=== PATIENT | female | born 1945 | race Caucasian/White ===

== ENCOUNTER 2022-05-13 16:16 | Outpatient (CLI) | payer MEDICARE, BC, SELFPAY ==
--- OUTSIDE RECORDS SUMMARY | 2022-05-13 08:32 | XMS_ITS | Clinical Summary ---
:1945 Author Organization [facility] Address [address] [place] [address] Care Team Providers Name Role Phone Unavailable Primary Care Provider Unavailable Source Comments You are receiving this document as you are listed as the primary care provider,follow-up provider, or the patient has been referred to you for consultation.This is in compliance with the Medicare and Medicaid EHR Incentive Program,which states Providers who transition their patient to another setting of careor provider of care or refers their patient to another provider of care shouldprovide summarycare record for each transition of care or referral. [facility] Allergies No known active allergies Medications Medication Sig Dispensed Refills Start Date End Date Status ATENOLOL OR 0 Active SIMVASTATIN OR 0 Activ e LEVOTHYROXINE SODIUM OR 0 Active aspirin 81 MG chewable Take 81 mg by 0 Active tablet mouth daily. Active Problems No known active problems Social History Tobacco Use Types Packs/Day Years Used Date Smoking Tobacco: Never Smokeless Tobacco: Never Sex Assigned at Date Recorded Not on file Plan of Treatment Health Maintenance Due Date Last Done Comments Colon Cancer Screening Plan 1945 Due Hep C Screening (Preventive 1945 Services) Medicare Annual Wellness 1945 Visit Mammogram 1945 COVID-19 Vaccine (#1) 05/30/1946 Cholesterol 11/27/1992 Dexa 11/27/2012 Zoster/Shingles (2 of 3) 11/16/2015 09/21/2015 Influenza (#1) 2022 05/29/2020, 05/31/2019, 06/28/2018, Additional history exists DTaP/Tdap/Td (3 - Tdap) 06/23/2030 06/23/2020, 06/20/2008, 02/27/1997 HepA Aged Out 06/22/2009, 08/05/2002 No longer eligible based on patient 's age to complete this topic Pneumococcal 65+ Yrs Completed 08/04/2017, 07/30/2016 HepB Aged Out No longer eligib le based on patient 's age to complete this topic Hib Aged Out No longer eligib le based on patient 's age to complete this topic IPV (Polio) Aged Out No longer eligib le based on patient 's age to complete this topic MCV4 Aged Out No longer eligib le based on patient 's age to complete this topic Insurance Payer Benefit Plan / Subscriber ID Effective Dates Phone Addre ss Type Group MEDICARE MEDICARE [id number] 2012-[employer] [phone] M edicare MANAGED CARE t 67 BCBS BCBS BCBS [employer] [id number] 2016-[employer] [phone] [address] [address] Medicare BLUE [address] [place] [address]
--- OUTSIDE RECORDS SUMMARY | 2022-05-13 08:32 | XMS_ITS | Clinical Summary ---
:1945 Author Organization [facility] [place] [address] Care Team Providers Name Role Phone LanierMahamed Yuli Unavailable Malia Doll DC Unavailable Pcp, No Primary Care Provider Unavailable Allergies Active Allergy Reactions Severity Noted Date Comments Hydrochlorothiazide Hyponatremia High 03/07/2021 Sertraline Hyponatremia 03/07/2021 Medications Medication Sig Dispensed Refills Start Date End Date Status atenoloL (TENORMIN) 50 Daily 0 03/06/2021 Active mg tablet levETIRAcetam (KEPPRA) 0 02/18/2021 Active 500 mg tablet levothyroxine Daily 0 12/05/2020 Activ e (SYNTHROID) 88 mcg tablet LORazepam (ATIVAN) 0.5 Three Times A 0 10/11/2020 Active mg tab Day as needed cholecalciferol (VITAMIN Daily 0 11/16/2020 Active D3) 1,000 unit capsule amLODIPine (NORVASC) 2.5 Daily 0 02/14/2021 Active mg tablet simvastatin (ZOCOR) 20 Bedtime 0 11/16/2020 Active mg tablet aspirin chewable 81 mg Chew 81 mg by 0 Active chewable tablet mouth. Active Problems Problem Noted Date PAC (premature atrial contraction) 06/06/2015 Overview: 11/2014 Screen for colon cancer 08/05/2011 Overview: Colonoscopy 07/2011 normal repeat in 10 years HTN (hypertension) 06/27/2010 Unspecified hypothyroidism 07/30/2008 Panic disorder without agoraphobia 12/21/2007 Goiter, unspecified 06/15/2007 Overview: Benign adenomatous 1994 Esophageal reflux 06/15/2007 Other and unspecified hyperlipidemia 06/15/2007 Encounters Date Type Specialty Care Team Description 02/12/2022 Lab Requisition Unknown, Doctor from Last 3 Months Immunizations Name Administration Dates Next Due AMB Influenza, IIV3 (Age >=3 years)(Flu 06/24/2013, 06/28/20 12, 06/30/2011 Clinic Only) Amb Influenza, Inact (High-dose) (Flu 06/20/2016 Clinic Only) Hepatitis A (Adult) 06/22/2009, 08/05/2002 Influenza Virus, Unspecified 06/28/2018, 06/17/2017 Influenza, High-dose Inactivated 06/06/2015, 05/30/2014 Influenza, IIV3 (Age >=3 years) 06/11/2010, 06/22/2009, 06/01 Pneumococcal Poly,23-Valent (Pneumovax) 08/04/2017 Pneumococcal conj 13-Valent (Prevnar 13) 07/30/2016 Td (Age >=7 Years) 02/27/1997 Tdap 06/20/2008 Zoster (Zostavax-ZVL, live) 09/21/2015 Family History Medical History Relation Name Comments Cancer Brother 2 leukemia Heart Disease Father PR, 81yr Hyperlipidemia Father Hypertension Father Heart Disease Mother atrial fib Hyperlipidemia Mother Hypertension Mother Cancer-breast Sister age 53 yr Relation Name Status Comments Brother 1 Brother 2 Father Mother Sister Alive Social History Tobacco Use Types Packs/Day Years Used Date Never Smoker Smokeless Tobacco: Never Used Tobacco Cessation: Counseling Given: Yes Alcohol Use Standard Drinks/Week Comments Yes 0 (1 standard drink = 0.6 oz pure alcoho l) occ glass of wine Sex Assigned at Date Recorded Not on file Obstetrics History Para Term AB IAB SAB Ectopic Multiple Living Live Births 2 2 Date Outcome GA Total Labor/2nd/3rd Weight Sex Delivery Anes PTL Sana A 1 A5 Name Clin Labor Last Filed Vital Signs Vital Sign Reading Time Taken Comments Blood Pressure 138/81 03/27/2021 1:31 PM CDT Pulse 73 03/27/2021 1:31 PM CDT Temperature 36.3 ??C (97.4 ??F) 07/14/2018 9:25 AM [facility] Respiratory Rate - - Oxygen Saturation 98% 03/27/2021 1:31 PM CDT Inhaled Oxygen Concentration - - Weight 79.6 kg (175 lb 6.4 oz) 03/27/2021 1:31 PM CDT Height 159.9 cm (5' 2.95) 07/14/2018 9:25 AM [facility] Body Mass Index 31.12 07/14/2018 9:25 AM [facility] Plan of Treatment Health Maintenance Due Date Last Done Comments Hepatitis C screening for age 0311/27/1963 18-79 Zoster (shingles) series for age 0311/16/2015 09/21/2015 50+ (2 of 3) Tetanus booster 06/20/2018 06/20/2008, 02/27/1997 Mammogram for age 45-75 08/04/2018 08/04/2017, 07/30/2016, 07/25/2015, Additional history exists Medicare Wellness for age 65+ 08/04/2018 08/04/2017, 2015, 07/25/2015, Additional history exists BMI (ht and wt on same day) for 07/14/2019 07/14/2018, 12/2016, age 18+ 06/05/2017, Additional history exists Depression screening for age 12+ 07/14/2019 07/14/2018, 12/2016, 08/04/2017, Additional history exists COVID-19 vaccine series (3 - 04/18/2021 11/16/2020, 021 Booster for Moderna series) Colonoscopy through age 75 08/05/2021 08/05/2011, 1 Influenza for age 65+ 05/01/2022 06/28/2018, 06/17/2017, 06/20/2016, Additional history exists Lipids for age 45-75 08/04/2022 08/04/2017, 06/20/2016, 07/23/2015, Additional history exists Tdap Completed 06/20/2008 DEXA/DXA scan for age 65+ Completed 07/31/2016 Pneumococcal series for age 65+ Completed 08/04/2017, 07/03 Procedures Procedure Name Priority Date/Time Associated Comments Diagnosis LEVETIRACETAM (KEPPRA) Routine 02/11/2022 2:34 PM Results for this CDT procedure are i n the results section. from Last 3 Months Results LEVETIRACETAM (KEPPRA) (02/11/2022 2:34 PM CDT) [facility] Method Time Signature LEVETIRACETAM 26.1 6.0 - 46.0 02/12/2022 [facility] (KEPPRA) ug/mL 3:13 PM CDT LAB[facility] Specimen Anatomical Collection Method Collection Time Receive d Time (Source) Location / / Volume Laterality Blood BLOOD SPECIMEN / Client Collect / 02/11/2022 2:34 PM 0 02/12/2022 2:38 Unknown Unknown CDT PM CDT Narrative [facility] - 02/12/2022 3:13 PM CDT Reference Range is based on Trough Steady State in patients receiving recommended daily dose. ??The relationship between serum concentrations and toxicity is not known. Bivaracetam (Briviact??) interferes with measurements of levetiracetam (Keppra??) in the [facility] Levetiracetam Assay Doctor Unknown SEND OUTS Performing Organization Address City/State/ZIP Code Phon e Number [facility] [address] [place] [address] LABORATORY-CENTRAL 2000 LABORATORY from Last 3 Months Insurance Payer Benefit Plan / Subscriber ID Effective Dates Phone Addre ss Type Group MEDICARE PART B MEDICARE PART B [id number] 2009-Prese ATTN: CLAIMS - HB USE ONLY HB ONLY nt [address] [place] [address] [place] [id number] 2014[place] [address] [place], [place] [id number] [place] [id number] 2017-Prese [address] [address] [place], [place] [id number] Care Teams Supplies Packer Relationship Specialty Start Date End Date Pcp, Cristine PCP - General 08/06/18 . Mahamed Lanier Search Engine Optimization Specialist 07/20/13 [address] [place] [address] Malia Doll DC Chiropractor 08/04/17 [address] [place] [address]
--- OUTSIDE RECORDS SUMMARY | 2022-05-13 08:32 | XMS_ITS | Encounter Summary ---
:1945 Author Organization [email or web address] Address [address] [place] [address] Care Team Providers Name Role Phone Unavailable Primary Care Provider Unavailable Reason for Visit Reason Comments Appt. Needed Encounter Details Date Type Department Care Team Description 03/29/2020 Telephone [facility] 3800 Nurse, [id number] End Appt. Needed Endocrinology [address] [place] [id number] Social History Tobacco Use Types Packs/Day Years Used Date Smoking Tobacco: Never Smokeless Tobacco: Never Sex Assigned at Date Recorded Not on file documented as of this encounter Nursing Notes Yolande Wyatt - 03/29/2020 3:11 PM CDT Faxed referral rec'd from [place] for Osteopenia Faxed referral in mailroom drawer 04/17 received current labs and put in drawer with referral documented in this encounter Plan of Treatment Not on filedocumented as of this encounter Visit Diagnoses Not on filedocumented in this encounter
--- OUTSIDE RECORDS SUMMARY | 2022-05-13 08:32 | XMS_ITS | Encounter Summary ---
:1945 Author Organization [facility] Address [address] [place] [address] Care Team Providers Name Role Phone Unavailable Primary Care Provider Unavailable Reason for Visit Reason Comments Consult, New Patient Encounter Details Date Type Department Care Team Description 04/27/2020 Phone Visit [facility] 3800 Nicole He othyroidism, unspecified type (Primary Dx); Endocrinology Lio Bowen MD Low bone density [facility] [address] [facility] [place] [address] [phone] (Wo rk) Social History Tobacco Use Types Packs/Day Years Used Date Smoking Tobacco: Never Smokeless Tobacco: Never Sex Assigned at Date Recorded Not on file documented as of this encounter Progress Notes Nicoel He MD - 04/27/2020 10:00 AM CDT Endocrine Note: Date: 04/27/2020 Phone Visit Time spent with patient: 33 minutes Reason for consultation: Low bone density Assessment: Shiela Villafana is a 74 y.o. female who is here for evaluation 1. Low bone density 2. Hypothyroidism, post surgical 2003: Surgery done for goiter. 3. Hyperprolactinemia, prolactin 41 on recent labs (upper limit of normal 26 ng /ml) Low bone density: FRAX: Major fracture risk 11% and hip fracture risk 2.3% I did not get data on the latest bone density Risk Factors: Age and Menopause. Fragility fractures: None Plan: Initial labs for bone eval was sent. Continue Vit D 1000 IU daily Continue 3 serving of Ca rich food per day. Aerobic exercises Hypothyroidism : Continue LT4 88 mcg daily Obtain TSH and FT4 levels. Hyperprolactinemia. Check PRL and FSH, macroprolactin levels. Nicole He MD Endocrinology Service HPI: Shiela Villafana is a 74 y.o. female who presents for evaluation of Low bone density. She was not aware of the diagnosis before. However in 2016 she had a DEXA scan that showed low bone density. I do not have access to these reports. Her primary care physician at that time recommended taking adequate calcium and vitamin-D along with regular aerobic exercise. Recently, she had history of severe hyponatremia and seizures. She is currently on a fluid restriction and has been taking Keppra for seizures. She is weak and just started ambulation. She had follow-up exam during which DEXA test was repeated as a part routine follow-up testing and was found to have low bone density. This is therefore here today for further evaluation and treatment. Symptoms: Detail Age // BMI // Race Increased fall risk yes: feels weak and moving slowly, has had seizure. Prior Fracture / ht loss No, Many years, slipped and fell. Parental hip fracture no Secondary causes no Steroid use no Smoking no Hypogonadism yes: hysterectomy, endometriosis @43, HRT for few years after that. Rheumatoid arthritis no Alcohol > 3 drinks a day no Femoral BMD no Sedentary life style yes: Walking more. Ca supplement Milk, yogurt daily. 2 serving at least Vit D supplement 1000 IU daily Risk Present ? FH of hyper para / MEN / hyper calcemia. no Sarcoid ? no Prolonged immobilization no Thiazide no Vit A no Thyroid disease / meds yes: LT4 88 mcg daily. Other ROS: Complete ROS that were obtained were negative. Detail Autoimmune disease no Calcium disorders no PSH Fracture ? no Family history of thyroid / AI disease no FH of bone disorder yes: Mother had arthritis, sister with fracture. Family history of osteoporosis no PMH: No past medical history on file. HYL on Simvastatin BP Atenolol Hyponatremia - fluid restriction. Seizure -- on Keppra. (related to hyponatremia) Osteoarthritis Anxiety Recent diagnosis of SIADH, hyponatremia and seizures Prolactin levels were also elevated but the reason for testings were not clear PSH: No past surgical history on file. Hysterectomy and bilateral salpingo-oophorectomy in 1988 Total thyroidectomy in 2003 FH: History reviewed. No pertinent family history. SH: Social History Tobacco Use ??? Smoking status: Never Smoker ??? Smokeless tobacco: Never Used Substance Use Topics ??? Alcohol use: Not on file ??? Drug use: Not on file ALL: No Known Allergies MED: aspirin ATENOLOL OR LEVOTHYROXINE SODIUM OR SIMVASTATIN OR Current Outpatient Medications Medication Sig ??? aspirin 81 MG chewable tablet Take 81 mg by mouth daily. ??? ATENOLOL OR ??? LEVOTHYROXINE SODIUM OR ??? SIMVASTATIN OR Exam: There were no vitals taken for this visit. Pleasant and cooperative. Normal Speech. Alert and oriented Last Basic Metabolic Panel: I have request faxing reports from [facility] Mar 24, 2020 TSH is 4.29, upper limit normal 4.20 Prolactin 41.2, upper limit of normal 26 Free T4 levels 1.93, upper limit of normal 1.8 Normal liver enzymes Potassium 2.9, normal kidney functions, creatinine 0.6 Random blood glucose was 158, repeat blood glucose 94 Repeat potassium was 4.3 documented in this encounter Plan of Treatment Not on filedocumented as of this encounter Visit Diagnoses Diagnosis Hypothyroidism, unspecified type - Prima ry Low bone density documented in this encounter
--- OUTSIDE RECORDS SUMMARY | 2022-05-13 08:32 | XMS_ITS | Encounter Summary ---
:1945 Author Organization [email or web address] Address [address] [place] [address] Care Team Providers Name Role Phone Unavailable Primary Care Provider Unavailable Reason for Referral (Routine) - Closed Specialty Diagnoses / Procedures Referred By Contact Refer red To Contact Diagnoses AK (actinic keratosis) Lisseth Henderson PA-C Procedures [place] DESTRUC BENIGN/PREMAL,2-14 LESIONS [facility] [address] [address] Referral ID Status Reason Start Date Expiration Date Visits Requ ested Visits Authorized [id number] Closed 03/28/2019 06/26/2020 1 1 Reason for Visit Reason Comments SKIN LESION Face Encounter Details Date Type Department Care Team Description 03/28/2019 Office Visit [facility] Lisseth Henderson AK (actinic keratosis) (Prim altagracia Dx); [address] [facility] CECILIA Bowden Seborrheic keratoses, [place] [id number] [place] [id number] Social History Tobacco Use Types Packs/Day Years Used Date Smoking Tobacco: Never Smokeless Tobacco: Never Sex Assigned at Date Recorded Not on file documented as of this encounter Progress Notes Lisseth Henderson - 03/28/2019 11:15 AM CDT Problem List None Chief Complaint Patient presents with ??? SKIN LESION Face History of Present Illness: Shiela Villafana is a 73 y.o. female who presents to clinic today for follow up of AK's and irritatedSK's along the face. She was recently seen 03/21/19 for skin exam and deferred treatment of these skin lesions along the face due to sister's wedding last week. She presents today requesting LN2 to these lesions. Reports that AK's along the left dorsal hand are healing well, she is very pleased. Past Medical History: AK's treated with LN2 in past. Negative for skin cancer. Family History: Daughter with history of NMSC. Social History: Shiela wears spf regularly, does not like wearing hats. Is outside with her grandsons quite a bit. Sister recently . Medications: The patient has a current medication list which includes the following prescription(s): aspirin, atenolol, levothyroxine sodium, and simvastatin. Allergies: The patient has No Known Allergies. Review of Systems: Patient is otherwise feeling well, denies any painful or bleeding skin lesions. Physical Examination: General: Well-appearing female, in no distress, alert and oriented, ambulates without difficulty. Skin: Exam is localized to the face, left dorsal hand today. Pertinent findings: - There are 7 gritty, scaly, ill defined, pink, rough macules and thin papules on the right central cheek, proximal dorsum of the nose, left and right superior forehead, left mid cheek - There are scattered brown to sahu, hyperkeratotic, stuck-on, warty papules on the face including 4irritated lesions along the right lateral cheek, right mosque and left mid cheek. - Left dorsal hand shows to erythematous crusted macules consistent with healing LN2 sites, 1 week s/p LN2. No signs of infection evident. Exam otherwise was normal. Assessment and Plan: 1. AK's x 7 along the face: The lesions were treated with LN2 after verbal consent was obtained. Risk of pigmentary changes discussed. Wound care instructions were provided in both verbal and written forms. 2. Irritated SK's x 4, face: The lesions were treated with LN2 after verbal consent was obtained. Risk of pigmentary changes discussed. Wound care instructions were provided in both verbal and written forms. 3. AK's dorsal hands, 1 week s/p LN2, appear to be healing well. Follow up: Return to clinic in 1 year for FBE, recheck of face due to history of AK's, sooner for new concerns. documented in this encounter Plan of Treatment Not on filedocumented as of this encounter Visit Diagnoses Diagnosis AK (actinic keratosis) - Primary Actinic keratosis Seborrheic keratoses, inflamed documented in this encounter
--- OUTSIDE RECORDS SUMMARY | 2022-05-13 08:33 | XMS_ITS | Encounter Summary ---
:1945 Author Organization [email or web address] Address [address] [place] [address] Care Team Providers Name Role Phone Unavailable Primary Care Provider Unavailable Reason for Referral (Routine) - Closed Specialty Diagnoses / Procedures Referred By Contact Refer red To Contact Diagnoses AK (actinic keratosis) Lisseth Henderson PA-C Procedures SD DESTRUC BENIGN/PREMAL,2-14 LESIONS [facility] [address] [place] [address] Referral ID Status Reason Start Date Expiration Date Visits Requ ested Visits Authorized [id number] Closed 03/21/2019 06/19/2020 1 1 Reason for Visit Reason Comments Skin Exam Encounter Details Date Type Department Care Team Description 03/21/2019 Initial Consult Ben Jacobs o (Primary Dx); Dermatology Lisseth Bowden PA-C Melanocytic nevus, unspecified location; [address] [facility] SK (seborrheic keratosis); [place], [place] [id number] [place] [address] Seborrheic keratoses, inflamed; [phone] [place], [place] Ruff angioma ; [address] Diffuse photodamage of skin; [phone] AK (actinic ker atosis) (Work) Social History Tobacco Use Types Packs/Day Years Used Date Smoking Tobacco: Never Assessed Sex Assigned at Date Recorded Not on file documented as of this encounter Patient Instructions Patient InstructionsYolande Oropeza LPN - 03/21/2019 11:45 AM CDT Consider wearing a hat while out in the sun. Sunscreen of 30 SPF with zinc oxide examples Blue lizard, [place], Hydrating Cerva Ve invisible zinc. Liquid Nitrogen Treatment (Cryotherapy) How it Works: Liquid nitrogen (Cryotherapy) is a cold liquified gas, with a temperature of -321?? F.It's used to freeze and destroy superficial skin growths. Treatment Goals: Treatment with liquid nitrogen may cause the treated area to appear red or swollen anywhere from a few hours to a couple of days. Usually a scab/crust forms, which will fall off by itself in 1 to 3 weeks. The skin growth will fall off with the scab, leaving healthy new skin. 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 You May Experience: Liquid nitrogen causes stinging and mild pain while the growth is being frozen and then thaws. The worst discomfort occurs during the first five to 10 minutes of the procedure, but can sometimes last significantly longer. A blister, sometimes a blood blister, may form. If this occurs, you may pop the blister with a cleanneedle, but leave the roof of the blister intact on the skin. If this does happen, keep the area covered with a Band-Aid and use Vaseline or antibiotic ointment. Areas that are prone to blistering are the eyelids and hands. The blisters and swelling are part of the treatment and will gradually heal. No special care is needed, you can wash as usual and use makeup or other cosmetics. You also may experience some redness, swelling, tenderness, weeping, or crusts/scabs. Try not to pick at, itch, or scrub the area. If the treated sore area feels sore or irritated, you can keep it covered. Avoid excessive sun exposure since this can result in persistent darkening at the treated sites. PLEASE NOTE: Sometimes, growths have to be re-frozen. If your growth is not cured by liquid nitrogen, please make a return appt. Uncommon: Call the nurse's line below if you have any white, green, or yellow fluid damage or any sign of an apparent infection. Nurse Line: documented in this encounter Progress Notes Lisseth Henderson 03/21/2019 11:45 AM CDT Problem List None Chief Complaint Patient presents with ??? Skin Exam History of Present Illness: Shiela Villafana is a 73 y.o. female who presents to clinic today for full body skin cancer screening exam. New patient to [facility]. Previously seen at [facility] dermatology practicein [place] and review of notes shows history of AK's. Today, Shiela reports the following concerns: -few moles along face that she would like removed, admits that they are becoming more prominent, easily traumatized and would like to discuss removal although due to her sister's wedding this weekend she prefers to consider removal at later date Past Medical History: AK's. Negative for skin cancer. Family History: Daughter with history of NMSC. Social History: Shiela wears spf regularly, does not like wearing hats. Is outside with her grandsons quite a bit. Medications: The patient has a current medication list which includes the following prescription(s): aspirin, atenolol, levothyroxine sodium, and simvastatin. Allergies: The patient has No Known Allergies. Review of Systems: Patient is otherwise feeling well, denies any painful or bleeding skin lesions. Physical Examination: General: Well-appearing female, in no distress, alert and oriented, ambulates without difficulty. Skin: The entire scalp, face, neck, anterior and posterior torso, upper and lower extremities including hands, feet, and nails, buttocks were examined today. Pertinent findings: - There are gritty, scaly, ill defined, pink, rough macules and thin papules on the right central cheek, dorsum of the nose, left lateral superior forehead, left dorsal hand - There are uniformly, pigmented, scattered, page macules in the sun distributed areas - There are scattered brown to sahu, hyperkeratotic, stuck-on, warty papules on the right lateral cheek, temples, forehead, left zygomatic cheek, shoulders, trunk and extremities. - There are uniformly pigmented, well demarcated, page to brown melanocytic macules and thin papules scattered throughout the trunk and extremities including a flesh-colored soft papule along the left chin consistent with intradermal nevus. - There are bright red, vascular, dome shaped, small papules on the trunk -there is flaking of the postauricular scalp bilaterally without thickened plaque or underlying erythema evident Exam otherwise was normal. Assessment and Plan: 1. AK's x 2 along the left dorsal hand: The lesions were treated with LN2 after verbal consent was obtained. Risk of pigmentary changes discussed. Wound care instructions were provided in both verbal and written forms. 2. Remainder of AK's along the face, will treat at next visit within 1-2 months due to sister's wedding this weekend and patient deferring LN2 to face today. 3. Irritated SK's, face: will treat at next visit within 1-2 months due to sister's wedding this weekend and patient deferring LN2 to face today. 4. Solar Lentigines, Seborrheic Keratoses, Clinically benign appearing melanocytic nevi and Ruff Angiomas - benign, no treatment indicated, patient reassured 5. Mild natividad derm, postauricular scalp: -not bothersome to patient, continue to observe. 6. Diffuse photodamage of skin: -Encouraged sun protective clothing, broad-brimmed hats, zinc oxide based spf 30. -ABCDE's of melanoma discussed and handouts on skin cancers provided. Follow up: Return to clinic within 1-[address]2 to AK's along the nose, left forehead, right cheek and SK's along the face that are irritated, sooner for new concerns. 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
[2022-05-13 10:12] LABS: Albumin* 4.4 g/dL (3.3-5.0); Chloride* 95 mmol/L (96-114); Sodium* 132 mmol/L (135-149)
[2022-05-13 10:13] LABS: Potassium* 4.2 mmol/L (3.6-5.1)
[2022-05-13 10:15] LABS: Alkaline Phosphatase* 94 U/L (40-150); Aspartate Amino Transferase* 26 U/L (12-35); Bilirubin Total* 0.8 mg/dL (0.1-1.5); Blood Urea Nitrogen* 13 mg/dL (7-30); Carbon Dioxide* 29 mmol/L (20-32); Creatinine* 0.6 mg/dL (0.5-1.5); Estimated Glomerular Filt Rate 94 ml/min; Total Protein* 7.3 g/dL (6.0-8.3)
[2022-05-13 10:16] LABS: Alanine Aminotransferase* 24 U/L (4-35); Glucose* 101 mg/dL (60-115)
[2022-05-13 10:27] LABS: Vitamin D 25 Hydroxy* 54 ng/mL (30-80)
[2022-05-13 11:14] LABS: Free T4 Free Thyroxine* 1.65 ng/dL (0.70-1.85)
== END 2022-05-13 16:17 | disposition home or self-care (01) ==
PROVIDERS: PCP Family Medicine; Visit Provider Family Medicine
DX: E55.9 Vitamin D deficiency, unspecified (principal); I10 Essential (primary) hypertension; E78.5 Hyperlipidemia, unspecified
CPT/HCPCS: 80053; 82306; 84439; 84443

== ENCOUNTER 2022-09-12 15:31 | Outpatient (CLI) | payer MEDICARE, BC, SELFPAY ==
[2022-09-12 10:28] LABS: Albumin* 4.1 g/dL (3.3-5.0); Chloride* 99 mmol/L (96-114)
[2022-09-12 10:29] LABS: Sodium* 132 mmol/L (135-149)
[2022-09-12 10:31] LABS: Aspartate Amino Transferase* 26 U/L (12-35); Bilirubin Total* 0.6 mg/dL (0.1-1.5); Carbon Dioxide* 28 mmol/L (20-32); Cholesterol* 167 mg/dL (90-199); Creatinine* 0.5 mg/dL (0.5-1.5); Estimated Glomerular Filt Rate 98 ml/min; Total Protein* 6.9 g/dL (6.0-8.3)
[2022-09-12 10:32] LABS: Alanine Aminotransferase* 25 U/L (4-35); Alkaline Phosphatase* 91 U/L (40-150); Blood Urea Nitrogen* 11 mg/dL (7-30); Calcium* 8.9 mg/dL (8.4-10.6); Glucose* 101 mg/dL (60-115); HDL Cholesterol* 59 mg/dL (>=50); LDL Cholesterol Calculated 92 mg/dL (<100); Triglycerides* 81 mg/dL (40-149)
[2022-09-12 10:38] LABS: Vitamin D 25 Hydroxy* 35 ng/mL (30-80)
[2022-09-13 03:05] LABS: Free T4 Free Thyroxine* 1.47 ng/dL (0.70-1.85)
== END 2022-09-12 15:32 | disposition home or self-care (01) ==
PROVIDERS: PCP Family Medicine; Visit Provider Family Medicine
DX: I10 Essential (primary) hypertension (principal); M85.80 Other specified disorders of bone density and structure, unspecified site; E78.5 Hyperlipidemia, unspecified; E03.9 Hypothyroidism, unspecified
CPT/HCPCS: 80053; 80061; 82306; 84439; 84443

== ENCOUNTER 2022-11-21 13:42 | Outpatient (CLI) | payer MEDICARE, BC, SELFPAY ==
--- NOTE | 2022-11-21 14:00 | CRLHL7_ITS ---
For Patients: As a result of the Century Cures Act, medical imaging exams and procedure reports are released immediately into your electronic medical record. You may view this report before your referring provider. If you have questions, please contact your health care provider. BILATERAL SCREENING MAMMOGRAM WITH COMPUTER-AIDED DETECTION AND TOMOSYNTHESIS TECHNIQUE: CC and MLO views were obtained. These mammographic images have been obtained using full-field digital technique. These mammographic images were interpreted with the benefit of computer-aided detection. Breast Tomosynthesis was used in this interpretation. COMPARISON FILM: 05/29/21, 04/09/20, 09/28/18. FINDINGS: There are scattered areas of fibroglandular density IMPRESSION: There is no radiographic evidence for malignancy. ASSESSMENT: BI-RADS Category 1: Negative RECOMMENDATION: Routine screening mammogram in 1 year. A lay language report of this examination will be provided to the patient. Rosa M Garrett M.D. Diagnostic/Breast Radiologist [email or web address] CARLOS EDUARDO/Dictated by: Rosa M Garrett MD @ 11/24/2022 8:26:00 AM (Electronically Signed)
== END 2022-11-21 13:43 | disposition home or self-care (01) ==
LOC: MAMMO 13:44
PROVIDERS: PCP Family Medicine; Visit Provider Family Medicine
DX: Z12.31 Encounter for screening mammogram for malignant neoplasm of breast (principal)
CPT/HCPCS: 77063; 77067

== ENCOUNTER 2022-12-15 08:32 | Outpatient (CLI) | payer MEDICARE, BC, SELFPAY | END 2022-12-15 08:33 | disposition home or self-care (01) | LOC: NFLDREF 15:14 | PROVIDERS: PCP Family Medicine; Referring Provider Family Medicine; Visit Provider Family Medicine | DX: E22.1 Hyperprolactinemia (principal); F33.42 Major depressive disorder, recurrent, in full remission; E22.2 Syndrome of inappropriate secretion of antidiuretic hormone; E89.0 Postprocedural hypothyroidism | CPT/HCPCS: 80048; 84146; 84439; 84443; 84480 ==

== ENCOUNTER 2023-02-18 09:29 | Outpatient (REF) | payer MEDICARE, BC, SELFPAY ==
[2023-02-18 10:15] LABS: Basophils Absolute Auto 0.03 K/uL (0.00-0.30); Basophils Percent Auto 0.4 % (0.0-3.0); Hematocrit 41.9 % (33.0-51.0); Hemoglobin* 14.1 gm/dL (12.0-16.0); Immature Granulocytes Abs Auto 0.01 K/uL (0.00-0.30); Immature Granulocytes Pct Auto 0.1 %; Lymphocytes Absolute Auto 2.38 K/uL (0.90-2.90); Lymphocytes Percent Auto 31.6 % (20-44); Mean Corpuscular HGB Conc 34 gm/dL (32-36); Mean Corpuscular Hemoglobin 28 pg (26-34); Mean Corpuscular Volume 84 fL (80-100); Monocytes Percent Auto 7.8 % (0.0-11.0); Neutrophils Absolute Auto 4.21 K/uL (1.7-7.0); Neutrophils Percent Auto 56.1 % (42.0-72.0); Platelet Count* 238 K/uL (140-440); RDW Coefficient of Variation % 12.4 % (11.5-15.5); Red Blood Count 4.98 m/uL (4.00-5.20); White Blood Count* 7.52 K/uL (4.50-11.00)
[2023-02-18 10:24] LABS: Slide Review Reflex No
[2023-02-19 18:53] LABS: Keppra (Levetiracetam) 24 ug/mL (10-40)
== END 2023-02-18 09:30 | disposition home or self-care (01) ==
LOC: NPINS 09:29
PROVIDERS: PCP Family Medicine; Visit Provider Psychiatry & Neurology Neurology
DX: R56.9 Unspecified convulsions (principal)
CPT/HCPCS: 80177; 85025

== ENCOUNTER 2023-05-11 08:42 | Outpatient (CLI) | payer MEDICARE, BC, SELFPAY | END 2023-05-11 08:43 | disposition home or self-care (01) | LOC: NFLDREF 21:55 | PROVIDERS: PCP Family Medicine; Referring Provider Family Medicine; Visit Provider Family Medicine | DX: I10 Essential (primary) hypertension (principal); E89.0 Postprocedural hypothyroidism | CPT/HCPCS: 80053; 84439; 84443 ==

== ENCOUNTER 2023-08-05 15:11 | Outpatient (CLI) | payer MEDICARE, BC, SELFPAY | END 2023-08-05 15:12 | disposition home or self-care (01) | LOC: AMB 08-06 09:48 | PROVIDERS: PCP Family Medicine; Visit Provider Family Medicine | DX: R56.9 Unspecified convulsions (principal) | CPT/HCPCS: A0425; A0427 ==

== ENCOUNTER 2023-08-05 15:39 | Emergency (ER) | payer MEDICARE, BC, SELFPAY ==
[2023-08-05] VITALS (17 sets, daily range): BP systolic 153–177; BP diastolic 71–79; PULSE 70–81; RESP 16; TEMP 36.9; O2SAT 92–100; BMI 29.1
--- NOTE | 2023-08-05 16:21 | ED.SEIZURE ---
HPI - Seizure General Chief Complaint: Seizure Stated Complaint: seizure Time Seen by Provider: 08/05/23 15:49 History of Present Illness HPI Narrative: This patient comes in for evaluation of a seizure that occurred prior to arrival. The report is that her came home and saw her in an active seizure. There is a report that this went on for about 5 minutes. Patient has a history of seizures and is taking Keppra. She was postictal upon arrival but at the time of my visit she is conversational. She does have a very dry mouth. She does not report any injury. She states that she has been taking her Keppra as prescribed but also is taking Ativan and has been cutting back on this medicine. She states that she is currently taking 1 and half tablets a day which amounts to 0.75 mg. Related Data Home Medications Medication Instructions Recorded Confirmed aspirin 81 mg tablet,delayed 81 mg PO QDAY 04/03/22 06/09/23 release (Adult Aspirin Regimen) levetiracetam 500 mg tablet 1,000 mg PO BID 05/15/22 06/09/23 (Keppra) Previous Rx's Medication Instructions Recorded cholecalciferol (vitamin D3) 25 2,000 unit PO QDAY #60 caps 07/31/22 mcg (1,000 unit) capsule amlodipine 2.5 mg tablet 2.5 mg PO QDAY #90 tabs 09/16/22 atenolol 50 mg tablet 50 mg PO QDAY #90 tabs 09/16/22 levothyroxine 75 mcg tablet 75 mcg PO QDAY #90 tabs 09/16/22 simvastatin 20 mg tablet 20 mg PO QPM #90 tabs 09/16/22 lorazepam 0.5 mg tablet 0.5 mg PO BID PRN anxiety #60 tabs 07/21/23 hydroxyzine HCl 25 mg tablet 25 mg PO QHS PRN #30 tabs 08/05/23 levetiracetam 500 mg tablet 500 mg PO BID #60 tabs 08/05/23 (Keppra) Allergies Allergy/AdvReac Type Severity Reaction Status Date / Time sertraline Allergy Unknown sodium drop Verified 06/09/23 13:32 hydrochlorothiazide AdvReac Severe hyponatremi Verified 06/09/23 13:32 a Review of Systems Status of ROS: Reports: 10 or more systems reviewed and unremarkable except as noted in History and below Narrative: Constitutional: No fevers, no weight gain or loss. Eyes: No discharge. No vision changes. HENT: No congestion, no sore throat, no ear pain. She reports a dry mouth. Cardiovascular: No chest pain, no palpitations. Respiratory: No shortness of breath, no wheezes, no cough. Gastrointestinal: No abdominal pain, no vomiting, no diarrhea. Genitourinary: No dysuria, no hematuria. Musculoskeletal: Normal range of motion. Skin: No rashes, no pruritis. Neurological: No dizziness, weakness, sensory change, speech change. Endo/Heme/Allergies: No bruising or bleeding. No polydipsia. Pysch: no suicidality, no anxiety, no insomnia. All other systems reviewed and are negative. [facility] Medical History (Updated 08/05/23 @ 18:02 by Kg Allen MD) Benzodiazepine dependence ?F13.20 - Sedative, hypnotic or anxiolytic dependence, uncomplicated (ICD-10) Rash of groin ?R21 - Rash and other nonspecific skin eruption (ICD-10) Increased prolactin level (~2019) ?R79.89 - Other specified abnormal findings of blood chemistry (ICD-10) Anxiety ?F41.9 - Anxiety disorder, unspecified (ICD-10) Phobia, unspecified ?F40.9 - Phobic anxiety disorder, unspecified (ICD-10) History of panic attacks ?Z86.59 - Personal history of other mental and behavioral disorders (ICD-10) Vulvar disorder ?N90.9 - Noninflammatory disorder of vulva and perineum, unspecified (ICD-10) Vitamin D deficiency ?E55.9 - Vitamin D deficiency, unspecified (ICD-10) 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) ?E22.2 - Syndrome of inappropriate secretion of antidiuretic hormone (ICD-10) Seizure disorder (2019) ?G40.909 - Epilepsy, unspecified, not intractable, without status epilepticus (ICD-10) Postoperative hypothyroidism (2003) ?E89.0 - Postprocedural hypothyroidism (ICD-10) Peripheral neuropathy (2019) ?G62.9 - Polyneuropathy, unspecified (ICD-10) Panic attack ?F41.0 - Panic disorder [episodic paroxysmal anxiety] (ICD-10) Palpitations ?R00.2 - Palpitations (ICD-10) Microscopic hematuria ?R31.29 - Other microscopic hematuria (ICD-10) Major depressive disorder ?F32.9 - Major depressive disorder, single episode, unspecified (ICD-10) Generalized anxiety disorder with panic attacks ?F41.1 - Generalized anxiety disorder (ICD-10) ?F41.0 - Panic disorder [episodic paroxysmal anxiety] (ICD-10) Dyslipidemia ?E78.5 - Hyperlipidemia, unspecified (ICD-10) Benign paroxysmal positional vertigo (~12/2020) ?H81.10 - Benign paroxysmal vertigo, unspecified ear (ICD-10) Acute anxiety ?F41.9 - Anxiety disorder, unspecified (ICD-10) Surgical History (Updated 09/15/22 @ 13:01 by Joanne Mcrae MD) History of total thyroidectomy (2003) ?E89.0 - Postprocedural hypothyroidism (ICD-10) History of hysterectomy with bilateral oophorectomy (1988) ?Z90.710 - Acquired absence of both cervix and uterus (ICD-10) ?Z90.722 - Acquired absence of ovaries, bilateral (ICD-10) Family History (Updated 09/15/22 @ 13:03 by Joanne Mcrae MD) Mother Atrial fibrillation, Onset Age: 70 Stroke, Onset Age: 76 CLL (chronic lymphocytic leukemia) Sister Breast cancer, Onset Age: 54 Brother ALL (acute lymphoblastic leukemia) Father Myocardial infarction, Onset Age: 81 Other Osteoarthritis Social History (Updated 12/17/22 @ 11:24 by Joanne Mcrae MD) 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 HEENT: Normocephalic, atraumatic. Dry mouth. Neck: Normal range of motion. Nontender. Supple. Heart: Regular. No murmurs. Normal rate. Intact distal pulses. Lungs: Clear to auscultation. No chest discomfort. No wheezes, rhonchi, or rales. Abdomen: Normal bowel sounds. Nontender. No rebound tenderness. Genitalia: Deferred. Back: No midline tenderness. Normal range of motion. Extremities: Normal range of motion. No injury. Skin: Intact. No rash. Warm. No erythema or pallor. Neurologic: No altered sensation. No weakness. Alert and oriented. Psychiatric: No suicidality. No anxiety or depression. No insomnia. Nursing notes and vitals signs are reviewed. Const: Vital Signs, click to edit/add: Vital Signs - 24 hr 08/05/23 15:50 08/05/23 15:51 08/05/23 15:51 Temperature 98.4 F Pulse Rate 81 80 Pulse Rate [Pulse Oximeter] 81 Respiratory Rate 16 Blood Pressure 177/74 H Blood Pressure [Ri ght Upper Arm] 177/74 H Pulse Oximetry 98 97 97 Oxygen Delivery Me thod Room Air 08/05/23 16:00 08/05/23 16:02 08/05/23 16:03 Temperature Pulse Rate 80 78 76 Pulse Rate [Pulse Oximeter] Respiratory Rate Blood Pressure 161/79 H Blood Pressure [Ri ght Upper Arm] Pulse Oximetry 98 98 98 Oxygen Delivery Me thod 08/05/23 16:15 08/05/23 16:30 08/05/23 16:31 Temperature Pulse Rate 78 72 70 Pulse Rate [Pulse Oximeter] Respiratory Rate Blood Pressure 153/71 H Blood Pressure [Ri ght Upper Arm] Pulse Oximetry 100 100 99 Oxygen Delivery Me thod 08/05/23 16:45 08/05/23 17:00 08/05/23 17:05 Temperature Pulse Rate 72 71 74 Pulse Rate [Pulse Oximeter] Respiratory Rate Blood Pressure Blood Pressure [Ri ght Upper Arm] Pulse Oximetry 95 94 94 Oxygen Delivery Me thod 08/05/23 17:15 Temperature Pulse Rate 70 Pulse Rate [Pulse Oximeter] Respiratory Rate Blood Pressure Blood Pressure [Ri ght Upper Arm] Pulse Oximetry 92 Oxygen Delivery Me thod Course Vital Signs Vital signs: Initial Vital Signs Pulse Rate 81 08/05/23 15:50 Blood Pressure 177/74 H 08/05/23 15:50 Blood Pressure Mean 108 H 08/05/23 15:50 Pulse Oximetry 98 08/05/23 15:50 Vital Signs Pulse Rate 81 08/05/23 15:50 Blood Pressure 177/74 H 08/05/23 15:50 Pulse Oximetry 98 08/05/23 15:50 Temperature 98.4 F 08/05/23 15:51 Pulse Rate 70 08/05/23 17:15 Respiratory Rate 16 08/05/23 15:51 Blood Pressure 153/71 H 08/05/23 16:31 Pulse Oximetry 92 08/05/23 17:15 Oxygen Delivery Method Room Air 08/05/23 15:51 Medications Administered Medications: Discontinued Medications Generic Name Dose Route Start Last Admin Trade Name Sera PRN Reason Stop Dose Admin Lorazepam 1 mg 08/05/23 16:19 08/05/23 16:33 Lorazepam 2 Mg/Ml Inj IVP 08/05/23 16:20 1 mg ONCE ONE Administration MDM - Seizure MDM Narrative Medical decision making narrative: This patient comes in because of a seizure that occurred prior to arrival. She arrives here with some postictal symptoms. She does not complain of any injury related to the seizure. An IV was established where she received a L of normal saline and a mg of Ativan. The patient is cutting back on Ativan but states that she has been taking 1 and half tablets daily for the past 4 weeks so there is no recent change in her Ativan dosing. She is also taking Keppra 1000 mg twice daily. Labs are obtained an return with essentially reassuring findings. Her sodium is a bit low at 130 and potassium also slightly low. A Keppra level is also ordered and results will be delayed because this is a send out lab. This patient assures me that she has been taking her Keppra and Ativan as prescribed. She does state that she has been having some poor sleep sometimes at night. She denies using any alcohol. Seeing that she did have a breakthrough seizure despite taking medications as prescribed I did provide prescription for 500 mg Keppra to be added to her current 1000 mg twice a day. I advised her to continue with Ativan as prescribed and follow-up with her primary physician. She also can connect with her neurologist. I also prescribed hydroxyzine which may help with insomnia and anxiety symptoms. Lab Data Labs: Lab Results 08/05/23 Range/Units 16:34 WBC 7.61 (4.50-11.00) K/uL RBC 4.90 (4.00-5.20) m/uL Hgb 14.0 (12.0-16.0) gm/dL Hct 41.0 (33.0-51.0) % MCV 84 (80-100) fL MCH 29 (26-34) pg MCHC 34 (32-36) gm/dL RDW Coeff of Consuelo 12.4 (11.5-15.5) % Plt Count 248 (140-440) K/uL Neut % (Auto) 74.1 H (42.0-72.0) % Lymph % (Auto) 17.9 L (20-44) % [place] % (Auto) 6.2 (0.0-11.0) % Eos % (Auto) 1.2 (0.0-7.0) % Baso % (Auto) 0.3 (0.0-3.0) % Neut # (Auto) 5.60 (1.7-7.0) K/uL Lymph # (Auto) 1.40 (0.90-2.90) K/uL [place] # (Auto) 0.50 (0.00-0.90) K/UL Eos # (Auto) 0.09 (0.00-0.50) K/uL Baso # (Auto) 0.02 (0.00-0.30) K/uL Abs Immat Gran (auto) 0.02 (0.00-0.30) K/uL Imm/Tot Granulo (auto) 0.3 % Sodium 130 L (135-149) mmol/L Potassium 3.5 L (3.6-5.1) mmol/L Chloride 97 (96-114) mmol/L Carbon Dioxide 23 (20-32) mmol/L Anion Gap 10 (7-15) mEq/L BUN 13 (7-30) mg/dL Creatinine 0.5 (0.5-1.5) mg/dL Estimated Creat Clear 45.50 Estimated GFR 98 ml/min Glucose 138 H (60-115) mg/dL Calcium 8.7 (8.4-10.6) mg/dL Discharge Plan Discharge Clinical Impression: Insomnia, Generalized anxiety disorder, Seizure Patient Disposition: Home w/ Parent or Adult Condition: Improved Additional Instructions: Increase Keppra from 1000 mg twice daily to 1500 mg twice daily. Continue Ativan as prescribed. Follow-up with primary physician and/or neurologist to review medications going forward. Keppra level results will return in a few days which may give extra guidelines for ongoing management. Return if worsening. Prescriptions: New levetiracetam [Keppra] 500 mg tablet 500 mg PO BID Qty: 60 2RF hydroxyzine HCl 25 mg tablet 25 mg PO QHS PRNQty: 30 0RF No Action amlodipine 2.5 mg tablet 2.5 mg PO QDAY Qty: 90 4RF atenolol 50 mg tablet 50 mg PO QDAY Qty: 90 4RF levothyroxine 75 mcg tablet 75 mcg PO QDAY Qty: 90 4RF simvastatin 20 mg tablet 20 mg PO QPM Qty: 90 4RF aspirin [Adult Aspirin Regimen] 81 mg tablet,delayed release (DR/EC) 81 mg PO QDAY levetiracetam [Keppra] 500 mg tablet 1,000 mg PO BID cholecalciferol (vitamin D3) 25 mcg (1,000 unit) capsule 2,000 unit PO QDAY Qty: 60 0RF lorazepam 0.5 mg tablet 0.5 mg PO BID PRN (Reason: anxiety) Qty: 60 0RF Follow Up/Referrals: Joanne Mcrae MD [Primary Care Provider] - Stand Alone Forms: [facility] Info Instructions
[2023-08-05] MEDS: LORazepam 2 MG/ML inj 1 MG IVP (16:33)
[2023-08-05 17:01] LABS: Chloride* 97 mmol/L (96-114); Sodium* 130 mmol/L (135-149)
[2023-08-05 17:02] LABS: Potassium* 3.5 mmol/L (3.6-5.1)
[2023-08-05 17:04] LABS: Anion Gap 10 mEq/L (7-15); Carbon Dioxide* 23 mmol/L (20-32); Creatinine* 0.5 mg/dL (0.5-1.5); Estimated Glomerular Filt Rate 98 ml/min
[2023-08-05 17:05] LABS: Blood Urea Nitrogen* 13 mg/dL (7-30); Calcium* 8.7 mg/dL (8.4-10.6); Glucose* 138 mg/dL (60-115)
[2023-08-05 17:08] LABS: Basophils Absolute Auto 0.02 K/uL (0.00-0.30); Basophils Percent Auto 0.3 % (0.0-3.0); Eosinophils Absolute Auto 0.09 K/uL (0.00-0.50); Eosinophils Percent Auto 1.2 % (0.0-7.0); Immature Granulocytes Abs Auto 0.02 K/uL (0.00-0.30); Immature Granulocytes Pct Auto 0.3 %; Lymphocytes Percent Auto 17.9 % (20-44); Mean Corpuscular HGB Conc 34 gm/dL (32-36); Mean Corpuscular Hemoglobin 29 pg (26-34); Mean Corpuscular Volume 84 fL (80-100); Monocytes Percent Auto 6.2 % (0.0-11.0); Neutrophils Percent Auto 74.1 % (42.0-72.0); Platelet Count* 248 K/uL (140-440); RDW Coefficient of Variation % 12.4 % (11.5-15.5); White Blood Count* 7.61 K/uL (4.50-11.00)
[2023-08-05 17:21] LABS: Slide Review Reflex No
--- NOTE | 2023-08-07 17:57 | ED.NURSE ---
[facility] PharmacistYolande called to clarify Keppra rx. Pt has 1000mg BID Keppra at home. Dr. Allen sent electronic rx for 500mg BID Keppra to add to a total 1500mg BID. Per pharmacy, insurance will not cover 500mg BID rx, but will cover a new 1500mg BID rx. Written order complete by Dr. Ellis for Keppra 1500mg BID. Faxed to [facility] pharmacy.
[2023-08-09 14:29] LABS: Keppra (Levetiracetam) 27 ug/mL (10-40)
== END 2023-08-05 18:55 | disposition home or self-care (01) ==
PROVIDERS: Emergency Provider Emergency Medicine Emergency Medical Services; PCP Family Medicine
DX: R56.9 Unspecified convulsions (principal); F41.9 Anxiety disorder, unspecified; G47.00 Insomnia, unspecified
CPT/HCPCS: 36415; 80048; 80177; 85025; 96372; 99284; J2060

== ENCOUNTER 2023-09-14 08:47 | Outpatient (CLI) | payer MEDICARE, BC, SELFPAY ==
--- OUTSIDE RECORDS SUMMARY | 2023-09-18 07:59 | XMS_ITS | Clinical Summary ---
Author Name Unknown Organization [facility] Address [place], [place] [address] Care Team Providers Care Hop Farmer Name Role Phone Mahamed Lanier Unavailable [phone] Malia Doll BONITA Unavailable [phone] Pcp, No Primary Care Provider Unavailabl e Allergies Active Allergy Reactions Criticality Noted Date Comments Hydrochlorothiazide Hyponatremia High 03/07/2021 Sertraline Hyponatremia 03/07/2021 Medications Medication Sig Dispensed Refills Start Date End Date Status atenoloL (TENORMIN) 50 mg tablet Daily 0 03/06/2021 Active levETIRAcetam (KEPPRA) 500 mg tablet 0 02/18/2021 Active levothyroxine (SYNTHROID) 88 mcg tablet Daily 0 12/05/2020 Active LORazepam (ATIVAN) 0.5 mg tab Three Times A Day as needed 0 10/11/2020 Active cholecalciferol (VITAMIN D3) 1,000 unit capsule Daily 0 11/16/2020 Active amLODIPine (NORVASC) 2.5 mg tablet Daily 0 02/14/2021 Active simvastatin (ZOCOR) 20 mg tablet Bedtime 0 11/16/2020 Active aspirin chewable 81 mg chewable tablet Chew 81 mg by mouth. 0 Active Active Problems Problem Noted Date Diagnosed Date PAC (premature atrial contraction) 06/06/2015 Overview: 11/2014 Screen for colon cancer 08/05/2011 Overview: Colonoscopy 07/2011 normal repeat in 10 years HTN (hypertension) 06/27/2010 Unspecified hypothyroidism 07/30/2008 Panic disorder without agoraphobia 12/21/2007 Goiter, unspecified 06/15/2007 Overview: Benign adenomatous 1994 Esophageal reflux 06/15/2007 Other and unspecified hyperlipidemia 06/15/2007 Immunizations Name Administration Dates Next Due AMB Influenza, IIV3 (Age >=3 years)(Flu Clinic Only) 06/24/2013,06/28/2012,06/30/2011 Amb Influenza, Inact (High-d ose) (Flu Clinic Only) 06/20/2016 Hepatitis A (Adult) 06/22/2009,08/05/2002 Influenza Virus, Unspecified 06/28/2018,06/17/20 17 Influenza, High-dose Inactivated 06/06/2015,05/03 Influenza, IIV3 (Age >=3 years) 06/11/2010,06/22,06/20/2008 Pneumococcal Poly,23-Valent (Pneumovax) 08/04/20 17 Pneumococcal conj 13-Valent (Prevnar 13) 016 Td (Age >=7 Years) 02/27/1997 Tdap 06/20/2008 Zoster (Zostavax-ZVL, live) 09/21/2015 Family History Medical History Relation Name Comments Cancer Brother 2 leukemia Heart Disease Father [place], 81yr Hyperlipidemia Father Hypertension Father Heart Disease Mother atrial fib Hyperlipidemia Mother Hypertension Mother Cancer-breast Sister age 53 yr Relation Name Status Comments Brother 1 Brother 2 Father Mother Sister Alive Social History Tobacco Use Types Packs/Day Years Used Date Smoking Tobacco: Never Smokeless Tobacco: Never Tobacco Cessation:Counseling Given: Yes Alcohol Use Standard Drinks/Week Comments Yes 0 (1 standard drink = 0.6 oz pur e alcohol) occ glass of wine PHQ-2 Answer Date Recorded PHQ-2 Score 0 10/31/2018 Sex and Gender Information Value Date Recorded Sex Assigned at Not on file Gender Identity Not on file Sexual Orientation Not on file Obstetrics History Para Term AB IAB SAB Ectopic Multiple Livin g Live Births 2 2 Date Outcome GA Total Labor Labor/2nd/3rd Weight Sex Delivery Anes PTL Sana A1 A5 Name Cl in Last Filed Vital Signs Vital Sign Reading Time Taken Comments Blood Pressure 138/81 03/27/2021 1:31 PM CDT Pulse 73 03/27/2021 1:31 PM CDT Temperature 36.3 ??C (97.4 ??F) 07/14/2018 9:25 AM CS T Respiratory Rate - - Oxygen Saturation 98% 03/27/2021 1:31 PM CDT Inhaled Oxygen Concentration - - Weight 79.6 kg (175 lb 6.4 oz) 03/27/2021 1:31 P M CDT Height 159.9 cm (5' 2.95) 07/14/2018 9:25 AM CS T Body Mass Index 31.12 07/14/2018 9:25 AM PIZZA CHEF Plan of Treatment Health Maintenance Due Date Last Done Comments Hepatitis C screening for ag e 18-79 11/27/1965 Zoster (shingles) series for age 50+ (2 of 3) 11/16/2015 09/21/2015 Tetanus booster 06/20/2018 06/20/2008, 02/27/1997 Medicare Wellness for age 65+ 08/04/2018, 07/30/2016, 07/25/2015, Additional history exists BMI (ht and wt on same day) for age 18+ 07/14/2019 07/14/2018, 08/04/2017, 06/05/2017, Additional history exists Depression screening for age 12+ 07/14/2019 07/14/2018, 08/04/2017, 08/04/2017, Additional history exists Colonoscopy through age 75 08/05/2021 08/05/2011, Lipids for age 45-75 08/04/2022 08/04/2017, 06/20/2016, 07/23/2015, Additional history exists COVID-19 vaccine series ( season) 2023 11/16/2020, 10/19/2020 Influenza for age 65+ 05/01/2023 06/28/2018 , 06/17/2017, 06/20/2016, Additional history exists Tdap Completed 06/20/2008 DEXA/DXA scan for age 65+ Completed 07/31/2016 Pneumococcal series for age 65+ Completed 7, 07/30/2016 Care Teams Hop Farmer Relationship Specialty Start Date End Date Pcp, No . PCP - General 08/06/18 Mahamed Lanier [address] [place] [address] Media Analytics Manager 07/20/13 Malia Doll DC [address] [place] [id number] Chiropractor 08/04/17
--- OUTSIDE RECORDS SUMMARY | 2023-09-18 07:59 | XMS_ITS | Clinical Summary ---
Author Name Unknown Organization [facility] Address [address] [place] [address] Care Team Providers Care Wellness Trainer Name Role Phone Unavailable Primary Care Provider Unavailabl e Source Comments You are receiving this document as you are listed as the primary care provider,follow-up provider, or the patient has been referred to you for consultation.This is in compliance with the Medicare and[facility],which states Providers who transition their patient to another setting of careor provider of care or refers their patient to another provider of care shouldprovide summary care record for each transition of care or referral. [facility] Allergies No known active allergies Medications Medication Sig Dispensed Refills Start Date End Date Status ATENOLOL OR 0 Active SIMVASTATIN OR 0 Active LEVOTHYROXINE SODIUM OR 0 A ctive aspirin 81 MG chewable tablet Take 81 mg by mouth daily. 0 Active Active Problems No known active problems Social History Tobacco Use Types Packs/Day Years Used Date Smoking Tobacco: Never Smokeless Tobacco: Never Sex and Gender Information Value Date Recorded Sex Assigned at Not on file Gender Identity Not on file Sexual Orientation Not on file Plan of Treatment Health Maintenance Due Date Last Done Comments Colon Cancer Screening Plan Due 1945 Hep C Screening (Preventive Services) 1945 Medicare Annual Wellness Visit 1945 Mammogram 1945 COVID-19 Vaccine (#1) 05/30/1948 Dexa 11/27/2012 Zoster/Shingles (2 of 3) 11/16/2015 09/21/2015 Influenza (#1) 2023 05/29/2020, 10/0 08/2018, 06/28/2018, Additional history exists DTaP/Tdap/Td (3 - Tdap) 06/23/2030 06/23/20 20, 06/20/2008, 02/27/1997 HepA Aged Out 06/22/2009, 08/05/2002 No lo nger eligible based on patient's age to complete this topic Pneumococcal 65+ Yrs Completed 08/04/2017, 07/30/20 16 HepB Aged Out No longer eligi ble based on patient's age to complete this topic Hib Aged Out No longer eligi ble based on patient's age to complete this topic IPV (Polio) Aged Out No longer eligi ble based on patient's age to complete this topic MCV4 Aged Out No longer eligi ble based on patient's age to complete this topic
== END 2023-09-14 08:48 | disposition home or self-care (01) ==
LOC: NFLDREF 09-18 07:57
PROVIDERS: PCP Family Medicine; Referring Provider Family Medicine; Visit Provider Family Medicine
DX: E55.9 Vitamin D deficiency, unspecified (principal); E78.5 Hyperlipidemia, unspecified; I10 Essential (primary) hypertension; M85.80 Other specified disorders of bone density and structure, unspecified site; E89.0 Postprocedural hypothyroidism
CPT/HCPCS: 80053; 80061; 82306; 84439; 84443

== ENCOUNTER 2023-09-30 08:34 | Outpatient (CLI) | payer MEDICARE, BC, SELFPAY ==
--- OUTSIDE RECORDS SUMMARY | 2023-10-01 06:18 | XMS_ITS | Clinical Summary ---
Author Name Unknown Organization [facility] Address [address] [place] [address] Care Team Providers Care Security Checker Name Role Phone Unavailable Primary Care Provider Unavailabl e Source Comments You are receiving this document as you are listed as the primary care provider,follow-up provider, or the patient has been referred to you for consultation.This is in compliance with the Medicare and[facility]centive [facility],which states Providers who [...]
--- OUTSIDE RECORDS SUMMARY | 2023-10-01 06:18 | XMS_ITS | Clinical Summary ---
Author Name Unknown Organization [facility] Address [place], [place] [address] Care Team Providers Care Tuckpointer Name Role Phone Mahamed Lanier Unavailable [phone] Malia Doll BONITA Unavailable [phone] Pcp, No Primary Care Provider Unavailabl [...] Labor Labor/2nd/3rd Weight Sex Delivery Anes PTL Saan A1 A5 Name Cl in Last Filed [...] Body Mass Index 31.12 07/14/2018 9:25 AM REAL ESTATE MARKETING COORDINATOR Plan of Treatment Health Maintenance Due Date [...] age 65+ Completed 7, 07/30/2016 Care Teams Tuckpointer Relationship Specialty Start Date End Date Pcp, No . PCP - General 08/06/18 Mahamed Lanier [address] [place] [address] Nurse College 07/20/13 Malia Doll DC [address] [place] [id number] Chiropractor 08/04/17
== END 2023-09-30 08:35 | disposition home or self-care (01) ==
LOC: NFLDREF 10-01 06:16
PROVIDERS: PCP Family Medicine; Referring Provider Family Medicine; Visit Provider Family Medicine
DX: E22.2 Syndrome of inappropriate secretion of antidiuretic hormone (principal)
CPT/HCPCS: 80048

== ENCOUNTER 2023-10-22 11:16 | Outpatient (REF) | payer MEDICARE, BC, SELFPAY ==
[2023-10-23 22:54] LABS: Keppra (Levetiracetam) 33 ug/mL (10-40)
== END 2023-10-22 11:17 | disposition home or self-care (01) ==
LOC: NPINS 11:16
PROVIDERS: PCP Family Medicine; Visit Provider Psychiatry & Neurology Neurology
DX: R56.9 Unspecified convulsions (principal); Z51.81 Encounter for therapeutic drug level monitoring
CPT/HCPCS: 80177

== ENCOUNTER 2023-12-07 19:00 | Outpatient (CLI) | payer MEDICARE, BC, SELFPAY ==
--- OUTSIDE RECORDS SUMMARY | 2023-12-10 08:42 | XMS_ITS | Clinical Summary ---
Author Name Unknown Organization [facility] Address [place], [place] [address] Care Team Providers Care Core Driller Helper Name Role Phone Mahamed Lanier Unavailable [phone] Malia Doll BONITA Unavailable [phone] Pcp, No Primary Care Provider Unavailabl [...] Cancer Brother 2 leukemia Heart Disease Father [place], 81yr Hyperlipidemia Father Hypertension Father Heart Disease [...] Body Mass Index 31.12 07/14/2018 9:25 AM MAINTENANCE SUPERVISOR ELECTRICAL Plan of Treatment Health Maintenance Due Date [...] 2 SITES AXIAL Routine 07/31/2016 9:27 AM MAINTENANCE SUPERVISOR ELECTRICAL Menopause from Last 3 Months or Most Recently Relevant to Health Maintenance Results * (ABNORMAL) XR DXA BONE DENSITY 2 SITES AXIAL (07/31/2016 9:27 AM MAINTENANCE SUPERVISOR ELECTRICAL) Anatomical Region Laterality Modality Spine, HIPS, HIPL, HIPR Other Narrative 08/08/2016 4:43 PM MAINTENANCE SUPERVISOR ELECTRICAL Please see scanned document for results of this study. [place] OIL RECOVERY OPERATOR DEXA from Last 3 Months or Most Recently Relevant to Health Maintenance Care Teams Core Driller Helper Relationship Specialty Start Date End Date Pcp, No . PCP - General 08/06/18 Mahamed Lanier [address] [place] [address] Electronic Console Display Operator 07/20/13 Malia Doll DC [address] [place] [address] Chiropractor 08/04/17
--- OUTSIDE RECORDS SUMMARY | 2023-12-10 08:42 | XMS_ITS | Clinical Summary ---
Author Name Unknown Organization [facility] Address [address] [place] [address] Care Team Providers Care Building Operator Name Role Phone Unavailable Primary Care Provider Unavailabl e Source Comments You are receiving this document as you are listed as the primary care provider,follow-up provider, or the patient has been referred to you for consultation.This is in compliance with the Medicare andVeterans Health Administrationcaid EHR Incentive Program,which states Providers who transition [...]
== END 2023-12-07 19:01 | disposition home or self-care (01) ==
LOC: AMB 12-10 08:41
PROVIDERS: PCP Family Medicine; Visit Provider Emergency Medicine Emergency Medical Services
DX: R56.9 Unspecified convulsions (principal); H53.9 Unspecified visual disturbance; R41.82 Altered mental status, unspecified
CPT/HCPCS: A0425; A0427

== ENCOUNTER 2023-12-07 19:19 | Emergency (ER) | payer MEDICARE, BC, SELFPAY ==
[2023-12-07] VITALS (12 sets, daily range): BP systolic 136–145; BP diastolic 61–73; PULSE 73–83; RESP 12–18; TEMP 36.5; O2SAT 95–99
--- NOTE | 2023-12-07 19:23 | CT_ITS ---
Patient: BEN PARK Facility:?[facility] RIS Patient ID:?[id number] Site Patient ID:?[id number]. Site :?[id number] Study:?CT-Head STROKE CODE-12/07/2023 7:33:56 PM Ordering Physician:?DR. ALCARAZ Final Report: INDICATION: Seizure, question stroke. COMPARISON: CT head 01/01/2021. TECHNIQUE: CT of the head without IV contrast. Coronal and sagittal reconstructions. FINDINGS: No intracranial hemorrhage, mass effect, or evidence of acute infarct. No midline shift. No abnormal extra-axial fluid collections. Mild chronic small vessel ischemic disease. Ventricular caliber is within normal limits. Orbits and extraocular muscles are symmetric. The visualized paranasal sinuses and mastoid air cells are clear. Soft tissues are unremarkable. No acute fracture identified. IMPRESSION: No acute intracranial findings. Please note that all CT scans at this facility use dose modulation, iterative reconstruction, and/or weight-based dosing when appropriate to reduce radiation dose to as low as reasonably achievable. Dictated by Haylie Castellanos MD @ 12/07/2023 8:00:11 PM Signed by:?Haylie Castellanos MD @12/07/2023 8:00:11 PM (Electronic Signature)
--- NOTE | 2023-12-07 19:24 | ED_ITS ---
HPI - Altered Mental Status General Chief Complaint: Altered Mental Status Stated Complaint: Possible stroke Time Seen by Provider: 12/07/23 19:22 History of Present Illness HPI narrative: This 78-year-old female comes in by ambulance and a stroke code was initiated EN route here. The patient has a history of seizure disorder and did have a seizure today. She is incontinent of urine. After the seizure she was mumbling and unsteady. There was no report of any unilateral weakness. Related Data Home Medications Medication Instructions Recorded Confirmed aspirin 81 mg tablet,delayed 81 mg PO QDAY 04/03/22 09/16/23 release (Adult Aspirin Regimen) Previous Rx's Medication Instructions Recorded cholecalciferol (vitamin D3) 25 2,000 unit PO QDAY #60 caps 07/31/22 mcg (1,000 unit) capsule levetiracetam 500 mg tablet 1,500 mg (3 x 500 mg) PO BID #180 08/07/23 (Keppra) tabs atenolol 50 mg tablet 50 mg PO QDAY #90 tabs 09/16/23 simvastatin 20 mg tablet 20 mg PO QPM #90 tabs 09/16/23 lorazepam 0.5 mg tablet 0.5 mg PO BID-TID PRN anxiety #180 10/08/23 tabs amlodipine 5 mg tablet 5 mg PO QDAY #90 tabs 11/25/23 levothyroxine 50 mcg tablet 50 mcg PO DAILY #90 tabs 12/07/23 Allergies Allergy/AdvReac Type Severity Reaction Status Date / Time sertraline Allergy Unknown sodium drop Verified 09/16/23 10:03 hydrochlorothiazide AdvReac Severe hyponatremi Verified 09/16/23 10:03 a Review of Systems Status of ROS: Reports: unobtainable due to medical condition [facility] Medical History (Updated 12/07/23 @ 21:10 by Kg Allen MD) Rash of groin ?R21 - Rash and other nonspecific skin eruption (ICD-10) Increased prolactin level (~2020) ?R79.89 - Other specified abnormal findings of blood chemistry (ICD-10) Anxiety ?F41.9 - Anxiety disorder, unspecified (ICD-10) Phobia, unspecified ?F40.9 - Phobic anxiety disorder, unspecified (ICD-10) History of panic attacks ?Z86.59 - Personal history of other mental and behavioral disorders (ICD-10) Vulvar disorder ?N90.9 - Noninflammatory disorder of vulva and perineum, unspecified (ICD-10) Vitamin D deficiency ?E55.9 - Vitamin D deficiency, unspecified (ICD-10) 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) ?E22.2 - Syndrome of inappropriate secretion of antidiuretic hormone (ICD-10) Seizure disorder (2019) ?G40.909 - Epilepsy, unspecified, not intractable, without status epilepticus (ICD-10) Postoperative hypothyroidism (2003) ?E89.0 - Postprocedural hypothyroidism (ICD-10) Peripheral neuropathy (2019) ?G62.9 - Polyneuropathy, unspecified (ICD-10) Panic attack ?F41.0 - Panic disorder [episodic paroxysmal anxiety] (ICD-10) Palpitations ?R00.2 - Palpitations (ICD-10) Microscopic hematuria ?R31.29 - Other microscopic hematuria (ICD-10) Major depressive disorder ?F32.9 - Major depressive disorder, single episode, unspecified (ICD-10) Generalized anxiety disorder with panic attacks ?F41.1 - Generalized anxiety disorder (ICD-10) ?F41.0 - Panic disorder [episodic paroxysmal anxiety] (ICD-10) Dyslipidemia ?E78.5 - Hyperlipidemia, unspecified (ICD-10) Benign paroxysmal positional vertigo (~12/2020) ?H81.10 - Benign paroxysmal vertigo, unspecified ear (ICD-10) Acute anxiety ?F41.9 - Anxiety disorder, unspecified (ICD-10) Surgical History (Updated 09/15/22 @ 13:01 by Joanne Mcrae MD) History of total thyroidectomy (2003) ?E89.0 - Postprocedural hypothyroidism (ICD-10) History of hysterectomy with bilateral oophorectomy (1988) ?Z90.710 - Acquired absence of both cervix and uterus (ICD-10) ?Z90.722 - Acquired absence of ovaries, bilateral (ICD-10) Family History (Updated 09/15/22 @ 13:03 by Joanne Mcrae MD) Mother Atrial fibrillation, Onset Age: 70 Stroke, Onset Age: 76 CLL (chronic lymphocytic leukemia) Sister Breast cancer, Onset Age: 54 Brother ALL (acute lymphoblastic leukemia) Father Myocardial infarction, Onset Age: 81 Other Osteoarthritis Social History (Updated 09/16/23 @ 12:58 by Josephine Javed ~ CTA) 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: , 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, 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, 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 exercises 5 days a week walks 40 minute non-smoker social drinker- 0-1/week What is your current living situation?: I presently have a place to live Problems where you live: no known problems In the past 12 months, utilities in danger of being shut off: no In past 12 months, lack of transportation kept you from medical appts, meetings, work, or getting things needed for daily living: no In the past 12 mos, have been you worried that your food would run out before you had money to buy more?: never true In the past 12 mos, the food you bought just didn't last and you didn't have money to buy more?: never true Smoking Status: Never smoker Do you use any of these nicotine containing products: None Second hand tobacco smoke exposure: No How often do you have a drink containing alcohol: never AUDIT-C Alcohol total score: 0 Non-prescribed substance use: denies use How often does anyone, including family, friends and others, physically hurt you : never How often does anyone, including family, friends and others, insult or talk down to you: never How often does anyone, including family, friends and others, threaten you with harm: never How often does anyone, including family, friends and others, scream or curse at you: never Little interest or pleasure in doing things: not at all Feeling down, depressed, or hopeless: several days Exam Narrative: Exam Narrative: Constitutional: Well-developed, well-nourished. Incontinent of urine. HEENT: Normocephalic, atraumatic. Neck: Normal range of motion. Nontender. Supple. Heart: Regular. No murmurs. Normal rate. Intact distal pulses. Lungs: Clear to auscultation. No chest discomfort. No wheezes, rhonchi, or r ales. Abdomen: Normal bowel sounds. Nontender. No rebound tenderness. Genitalia: Deferred. Back: No midline tenderness. Normal range of motion. Extremities: Normal range of motion. No injury. Skin: Intact. No rash. Warm. No erythema or pallor. Neurologic: Poor verbal response possibly related to postictal symptoms. No facial asymmetry. Tongue is midline. [id number] is normal. No pronator drift. Ocular Pathologist strength is equal bilaterally. Able to raise each leg from the bed. Psychiatric: No suicidality. No anxiety or depression. No insomnia. Nursing notes and vitals signs are reviewed. Const: Vital Signs, click to edit/add: Vital Signs - 24 hr 12/07/23 19:33 12/07/23 19:40 12/07/23 19:46 Temperature Pulse Rate 83 78 Pulse Rate [Pulse Oximeter] 75 Respiratory Rate 14 12 Blood Pressure 145/73 H 143/63 H Blood Pressure [Ri ght Upper Arm] Pulse Oximetry 97 96 Oxygen Delivery Me thod Room Air 12/07/23 19:47 12/07/23 20:00 Temperature 97.7 F Pulse Rate Pulse Rate [Pulse Oximeter] 78 75 Respiratory Rate 16 Blood Pressure Blood Pressure [Ri ght Upper Arm] 143/63 H Pulse Oximetry 99 Oxygen Delivery Me thod Room Air Course Vital Signs Vital signs: Initial Vital Signs Pulse Rate 83 12/07/23 19:33 Respiratory Rate 14 12/07/23 19:33 Blood Pressure 145/73 H 12/07/23 19:33 Blood Pressure Mean 97 12/07/23 19:33 Pulse Oximetry 97 12/07/23 19:33 Vital Signs Pulse Rate 83 12/07/23 19:33 Respiratory Rate 14 12/07/23 19:33 Blood Pressure 145/73 H 12/07/23 19:33 Pulse Oximetry 97 12/07/23 19:33 Temperature 97.7 F 12/07/23 19:47 Pulse Rate 75 12/07/23 20:00 Respiratory Rate 16 12/07/23 19:47 Blood Pressure 143/63 H 12/07/23 19:47 Pulse Oximetry 99 12/07/23 19:47 Oxygen Delivery Method Room Air 12/07/23 19:47 MDM - Altered Mental Status MDM Narrative Medical decision making narrative: This patient comes in by ambulance with altered mental status. She has a history of seizure disorder and arrives with symptoms typical of a postictal state. Family members do report that she did have a seizure. Ambulance personnel did call a stroke code and the patient was evaluated by me initially upon arrival as she went directly to CT scanner. CT scan by my review shows no acute findings. The patient is taking Keppra 1500 mg twice daily. She is also taking Ativan twice daily. Her last seizure occurred about 5 months ago when she was trying to discontinue Ativan use by weaning off of it. There was suspicion at that time that this contributed to her seizure then. Today she has not had any change of medication and denies missing any medications. She also d enies using any alcohol. She did have poor night's sleep a couple nights ago. Lab results today also returned with reassuring findings. The patient is not showing any sign of stroke. I did speak with the neurologist building construction teacher regarding these matters, Dr. Meredith, who reaffirmed evidence of seizure but no sign of stroke. The patient does see a neurologist and has follow-up appointment with her primary physician and a bit later with a neurologist. She did receive 1 IV dose of Ativan 1 mg here. She is on her max dosing of Keppra. I advised her to follow-up with her primary caregivers for ongoing management of seizure treatments. Lab Data Labs: Lab Results 12/07/23 Range/Units 19:35 WBC 12.65 H (4.50-11.00) K/uL RBC 5.15 (4.00-5.20) m/uL Hgb 14.7 (12.0-16.0) gm/dL Hct 43.8 (33.0-51.0) % MCV 85 (80-100) fL MCH 29 (26-34) pg MCHC 34 (32-36) gm/dL RDW Coeff of Consuelo 12.5 (11.5-15.5) % Plt Count 271 (140-440) K/uL Neut % (Auto) 43.7 (42.0-72.0) % Lymph % (Auto) 46.6 H (20-44) % [place] % (Auto) 6.6 (0.0-11.0) % Eos % (Auto) 2.3 (0.0-7.0) % Baso % (Auto) 0.3 (0.0-3.0) % Neut # (Auto) 5.50 (1.7-7.0) K/uL Lymph # (Auto) 5.90 H (0.90-2.90) K/uL [place] # (Auto) 0.80 (0.00-0.90) K/UL Eos # (Auto) 0.30 (0.00-0.50) K/uL Baso # (Auto) 0.00 (0.00-0.30) K/uL Abs Immat Gran (auto) 0.10 (0.00-0.30) K/uL Imm/Tot Granulo (auto) 0.5 % Sodium 132 L (135-149) mmol/L Potassium 3.0 L (3.6-5.1) mmol/L Chloride 96 (96-114) mmol/L Carbon Dioxide 15 L (20-32) mmol/L Anion Gap 21 H (7-15) mEq/L BUN 13 (7-30) mg/dL Creatinine 0.7 (0.5-1.5) mg/dL Estimated GFR 90 ml/min Glucose 165 H (60-115) mg/dL Calcium 9.3 (8.4-10.6) mg/dL ECG Data Attestation: I personally reviewed and interpreted this ECG as follows: Interpretation: Normal sinus rhythm. Rate is 81 beats per minute. There are no ST or T-wave abnormalities. Discharge Plan Discharge Clinical Impression: Seizure disorder Patient Disposition: Home w/ Parent or Adult Condition: Improved Additional Instructions: Continue current plans. Follow up with primary physician and neurologist for ongoing management of seizure medications. Return if symptoms are recurrent. Prescriptions: No Action simvastatin 20 mg tablet 20 mg PO QPM Qty: 90 3RF atenolol 50 mg tablet 50 mg PO QDAY Qty: 90 3RF levetiracetam [Keppra] 500 mg tablet 1,500 mg PO BID Qty: 180 0RF aspirin [Adult Aspirin Regimen] 81 mg tablet,delayed release (DR/EC) 81 mg PO QDAY cholecalciferol (vitamin D3) 25 mcg (1,000 unit) capsule 2,000 unit PO QDAY Qty: 60 0RF lorazepam 0.5 mg tablet 0.5 mg PO BID-TID PRN (Reason: anxiety) Qty: 180 0RF Rx Instructions: 1 tablet twice or 3 times a day as needed use as little as possible amlodipine 5 mg tablet 5 mg PO QDAY Qty: 90 0RF levothyroxine 50 mcg tablet 50 mcg PO DAILY Qty: 90 0RF Follow Up/Referrals: Joanne Mcrae MD [Primary Care Provider] - Stand Alone Forms: [employer] Info Instructions
--- OUTSIDE RECORDS SUMMARY | 2023-12-07 19:50 | XMS_ITS | Clinical Summary ---
Author Name Unknown Organization [facility] Address [address] [place] [address] Care Team Providers Care Yardage Control Operator Forming Name Role Phone Unavailable Primary Care Provider Unavailabl e Source Comments You are receiving this document as you are listed as the primary care provider,follow-up provider, or the patient has been referred to you for consultation.This is in compliance with the Medicare and[facility],which states Providers who transition their patient to another setting of careor provider of care or refers their patient to another provider of care shouldprovide summary care record for each transition of care or referral. [facility] Allergies No known active allergies Medications Medication Sig Dispensed Refills Start Date End Date Status ATENOLOL OR Active SIMVASTATIN OR Active LEVOTHYROXINE SODIUM OR A ctive aspirin 81 MG chewable tablet Take 81 mg by mouth daily. Active Active Problems No known active problems Social History Tobacco Use Types Packs/Day Years Used Date Smoking Tobacco: Never Smokeless Tobacco: Never Sex and Gender Information Value Date Recorded Sex Assigned at Not on file Gender Identity Not on file Sexual Orientation Not on file Plan of Treatment Health Maintenance Due Date Last Done Comments Hep C Screening (Preventive Services) 1945 Medicare Annual Wellness Visit 1945 Zoster/Shingles (2 of 3) 11/16/2015 09/21/2015 COVID-19 Vaccine (3 season) 2023 11/16/2020, 10/19/2020 Influenza (#1) 2023 05/29/2020, 10/0 08/2018, 06/28/2018, Additional history exists DTaP/Tdap/Td (3 - Tdap) 06/23/2030 06/23/20 20, 06/20/2008, 02/27/1997 HepA Aged Out 06/22/2009, 08/05/2002 No lo nger eligible based on patient's age to complete this topic Dexa Completed 07/31/2016 Pneumococcal 65+ Yrs Completed 08/04/2017, 07/30/20 16 [...]
--- OUTSIDE RECORDS SUMMARY | 2023-12-07 19:50 | XMS_ITS | Clinical Summary ---
Author Name Unknown Organization [facility] Address [place], [place] [address] Care Team Providers Care Bookkeeping Machine Mechanic Name Role Phone Mahamed Lanier Unavailable [phone] Malia Doll BONITA Unavailable [phone] Pcp, No Primary Care Provider Unavailabl e Allergies Active Allergy Reactions Criticality Noted Date Comments Hydrochlorothiazide Hyponatremia High 03/07/2021 Sertraline Hyponatremia 03/07/2021 Medications Medication Sig Dispensed Refills Start Date End Date Status atenoloL (TENORMIN) 50 mg tablet Daily 03/06/2021 Active levETIRAcetam (KEPPRA) 500 mg tablet 02/18/2021 Active levothyroxine (SYNTHROID) 88 mcg tablet Daily 12/05/2020 Active LORazepam (ATIVAN) 0.5 mg tab Three Times A Day as needed 10/11/2020 Active cholecalciferol (VITAMIN D3) 1,000 unit capsule Daily 11/16/2020 Active amLODIPine (NORVASC) 2.5 mg tablet Daily 02/14/2021 Active simvastatin (ZOCOR) 20 mg tablet Bedtime 11/16/2020 Active aspirin chewable 81 mg chewable tablet Chew 81 mg by mouth. Active Active Problems Problem Noted Date Diagnosed [...] Cancer Brother 2 leukemia Heart Disease Father [place], 81yr Hyperlipidemia Father Hypertension Father Heart Disease [...] Body Mass Index 31.12 07/14/2018 9:25 AM TEST ENG Plan of Treatment Health Maintenance Due Date Last Done Comments Hepatitis C screening for ag e 18-11/27/1963 Zoster (shingles) series for age 50+ (2 of 3) 11/16/2015 09/21/2015 Tetanus booster 06/20/2018 06/20/2008, 02/27/1997 Medicare Wellness for age 65+ 08/05/2018, 07/30/2016, 07/25/2015, Additional history exists BMI (ht and wt on same day) for age 18+ 07/14/2019 07/14/2018, 08/04/2017, 06/05/2017, Additional history exists Depression screening for age 12+ 07/14/2019 07/14/2018, 08/04/2017, 08/04/2017, Additional history exists COVID-19 vaccine series ( season) 2023 11/16/2020, 10/19/2020 Influenza for age 65+ 05/01/2024 06/28/2018 , 06/17/2017, 06/20/2016, Additional history exists Tdap Completed 06/20/2008 DEXA/DXA scan for age 65+ Completed 07/31/2016 Pneumococcal series for age 65+ Completed 7, 07/30/2016 Procedures Procedure Name Priority Date/Time Associated Diagnosis Comments XR DXA BONE DENSITY 2 SITES AXIAL Routine 07/31/2016 9:27 AM TEST ENG Menopause from Last 3 Months or Most Recently Relevant to Health Maintenance Results * (ABNORMAL) XR DXA BONE DENSITY 2 SITES AXIAL (07/31/2016 9:27 AM TEST ENG) Anatomical Region Laterality Modality Spine, HIPS, HIPL, HIPR Other Narrative 08/08/2016 4:43 PM TEST ENG Please see scanned document for results of this study. [place] MOTOR COACH SUPERVISOR DEXA from Last 3 Months or Most Recently Relevant to Health Maintenance Care Teams Bookkeeping Machine Mechanic Relationship Specialty Start Date End Date Pcp, No . PCP - General 08/06/18 Mahamed Lanier [address] [place] [address] Service Station Console Operator 07/20/13 Malia Doll DC [address] [place] [address] Chiropractor 08/04/17
[2023-12-07 19:51] LABS: Basophils Percent Auto 0.3 % (0.0-3.0); Eosinophils Percent Auto 2.3 % (0.0-7.0); Hematocrit 43.8 % (33.0-51.0); Hemoglobin* 14.7 gm/dL (12.0-16.0); Immature Granulocytes Pct Auto 0.5 %; Lymphocytes Percent Auto 46.6 % (20-44); Mean Corpuscular HGB Conc 34 gm/dL (32-36); Mean Corpuscular Hemoglobin 29 pg (26-34); Mean Corpuscular Volume 85 fL (80-100); Monocytes Percent Auto 6.6 % (0.0-11.0); Neutrophils Percent Auto 43.7 % (42.0-72.0); Platelet Count* 271 K/uL (140-440); RDW Coefficient of Variation % 12.5 % (11.5-15.5); Red Blood Count 5.15 m/uL (4.00-5.20); White Blood Count* 12.65 K/uL (4.50-11.00)
[2023-12-07 19:53] LABS: Slide Review Reflex No
[2023-12-07 19:58] LABS: Chloride* 96 mmol/L (96-114)
[2023-12-07 19:59] LABS: Sodium* 132 mmol/L (135-149)
[2023-12-07 20:01] LABS: Creatinine* 0.7 mg/dL (0.5-1.5); Estimated Glomerular Filt Rate 90 ml/min
[2023-12-07 20:02] LABS: Anion Gap 21 mEq/L (7-15); Blood Urea Nitrogen* 13 mg/dL (7-30); Calcium* 9.3 mg/dL (8.4-10.6); Carbon Dioxide* 15 mmol/L (20-32); Glucose* 165 mg/dL (60-115)
[2023-12-07] MEDS: LORazepam 2 MG/ML inj 1 MG IV (21:21)
== END 2023-12-07 21:45 | disposition home or self-care (01) ==
PROVIDERS: Emergency Provider Emergency Medicine Emergency Medical Services; PCP Family Medicine
DX: G40.909 Epilepsy, unspecified, not intractable, without status epilepticus (principal)
CPT/HCPCS: 36415; 70450; 80048; 85025; 93005; 96374; 99284; 99291; J2060

== ENCOUNTER 2023-12-14 11:35 | Outpatient (CLI) | payer MEDICARE, BC, SELFPAY ==
--- OUTSIDE RECORDS SUMMARY | 2023-12-24 12:57 | XMS_ITS | Clinical Summary ---
Author Name Unknown Organization [facility] Address [place], [place] [address] Care Team Providers Care Data Communications Analyst Name Role Phone Mahamed Lanier Unavailable [phone] Malia Doll BONITA Unavailable [phone] Pcp, No Primary Care Provider Unavailabl [...] Cancer Brother 2 leukemia Heart Disease Father [place], 81yr Hyperlipidemia Father Hypertension Father Heart Disease [...] Body Mass Index 31.12 07/14/2018 9:25 AM PAINTER RAILROAD CAR Plan of Treatment Health Maintenance Due Date [...] 2 SITES AXIAL Routine 07/31/2016 9:27 AM PAINTER RAILROAD CAR Menopause from Last 3 Months or Most Recently Relevant to Health Maintenance Results * (ABNORMAL) XR DXA BONE DENSITY 2 SITES AXIAL (07/31/2016 9:27 AM PAINTER RAILROAD CAR) Anatomical Region Laterality Modality Spine, HIPS, HIPL, HIPR Other Narrative 08/08/2016 4:43 PM PAINTER RAILROAD CAR Please see scanned document for results of this study. [place] STATIONARY BOILER FIREMAN DEXA from Last 3 Months or Most Recently Relevant to Health Maintenance Care Teams Data Communications Analyst Relationship Specialty Start Date End Date Pcp, No . PCP - General 08/06/18 Mahamed Lanier [address] [place] [address] Database Developer 07/20/13 Malia Doll DC [address] [place] [address] Chiropractor 08/04/17
--- OUTSIDE RECORDS SUMMARY | 2023-12-24 12:57 | XMS_ITS | Clinical Summary ---
Author Name Unknown Organization [facility] Address [address] [place] [address] Care Team Providers Care Supervisor Cloth Winding Name Role Phone Unavailable Primary Care Provider Unavailabl e Source Comments You are receiving this document as you are listed as the primary care provider,follow-up provider, or the patient has been referred to you for consultation.This is in compliance with the Medicare and[facility] Cent[facility]aid EHR Incentive Program,which states Providers who transition [...]
== END 2023-12-14 11:36 | disposition home or self-care (01) ==
LOC: NFLDREF 12-24 12:55
PROVIDERS: PCP Family Medicine; Referring Provider Family Medicine; Visit Provider Family Medicine
DX: E89.0 Postprocedural hypothyroidism (principal); I10 Essential (primary) hypertension
CPT/HCPCS: 80053; 84439; 84443

== ENCOUNTER 2023-12-23 12:39 | Outpatient (REF) | payer MEDICARE, BC, SELFPAY ==
--- OUTSIDE RECORDS SUMMARY | 2023-12-23 12:44 | XMS_ITS | Clinical Summary ---
Author Name Unknown Organization [facility] Address [address] [place] [address] Care Team Providers Care Fiber Heel Piece Shaper Name Role Phone Unavailable Primary Care Provider Unavailabl e Source Comments You are receiving this document as you are listed as the primary care provider,follow-up provider, or the patient has been referred to you for consultation.This is in compliance with the Medicare and[facility] Hospitalca[facility] EHR Incentive Program,which states Providers who [...]
--- OUTSIDE RECORDS SUMMARY | 2023-12-23 12:44 | XMS_ITS | Clinical Summary ---
Author Name Unknown Organization [facility] [facility] Address [place], [place] [address] Care Team Providers Care Field Administrator Name Role Phone Mahamed Lanier Unavailable [phone] Malia Doll BONITA Unavailable [phone] Pcp, No Primary Care Provider Unavailabl [...] Cancer Brother 2 leukemia Heart Disease Father [place], 81yr Hyperlipidemia Father Hypertension Father Heart Disease [...] Body Mass Index 31.12 07/14/2018 9:25 AM MULTI SENSOR OPERATOR Plan of Treatment Health Maintenance Due Date [...] 2 SITES AXIAL Routine 07/31/2016 9:27 AM MULTI SENSOR OPERATOR Menopause from Last 3 Months or Most Recently Relevant to Health Maintenance Results * (ABNORMAL) XR DXA BONE DENSITY 2 SITES AXIAL (07/31/2016 9:27 AM MULTI SENSOR OPERATOR) Anatomical Region Laterality Modality Spine, HIPS, HIPL, HIPR Other Narrative 08/08/2016 4:43 PM MULTI SENSOR OPERATOR Please see scanned document for results of this study. [place] CONFIDENTIAL SECRETARY DEXA from Last 3 Months or Most Recently Relevant to Health Maintenance Care Teams Field Administrator Relationship Specialty Start Date End Date Pcp, No . PCP - General 08/06/18 Mahamed Lanier [address] [place] [address] Analytical Data Scientist 07/20/13 Malia Doll DC [address] [place] [address] Chiropractor 08/04/17
[2023-12-24 19:55] LABS: Keppra (Levetiracetam) 71 ug/mL (10-40)
== END 2023-12-23 12:40 | disposition home or self-care (01) ==
LOC: NPINS 12:39
PROVIDERS: PCP Family Medicine; Visit Provider Psychiatry & Neurology Neurology
DX: R56.9 Unspecified convulsions (principal); G60.9 Hereditary and idiopathic neuropathy, unspecified; Z51.81 Encounter for therapeutic drug level monitoring
CPT/HCPCS: 80177

== ENCOUNTER 2024-01-07 10:24 | Outpatient (REF) | payer MEDICARE, BC, SELFPAY ==
--- OUTSIDE RECORDS SUMMARY | 2024-01-07 10:29 | XMS_ITS | Clinical Summary ---
Author Name Unknown Organization [employer] Address [place], [place] [address] Care Team Providers Care Allergist/Pediatric Pulmonologist Name Role Phone Mahamed Lanier Unavailable [phone] Malia Doll BONITA Unavailable [phone] Pcp, No Primary Care Provider Unavailabl [...] Cancer Brother 2 leukemia Heart Disease Father [place], 81yr Hyperlipidemia Father Hypertension Father Heart Disease [...] Body Mass Index 31.12 07/14/2018 9:25 AM FIELD CANE SCALER HELPER Plan of Treatment Health Maintenance Due Date [...] 2 SITES AXIAL Routine 07/31/2016 9:27 AM FIELD CANE SCALER HELPER Menopause from Last 3 Months or Most Recently Relevant to Health Maintenance Results * (ABNORMAL) XR DXA BONE DENSITY 2 SITES AXIAL (07/31/2016 9:27 AM FIELD CANE SCALER HELPER) Anatomical Region Laterality Modality Spine, HIPS, HIPL, HIPR Other Narrative 08/08/2016 4:43 PM FIELD CANE SCALER HELPER Please see scanned document for results of this study. [place] WASH BARREL LEADER DEXA from Last 3 Months or Most Recently Relevant to Health Maintenance Care Teams Allergist/Pediatric Pulmonologist Relationship Specialty Start Date End Date Pcp, No . PCP - General 08/06/18 Mahamed Lanier [address] [place] [address] Plexiglas Former 07/20/13 Malia Doll DC [address] [place] [address] Chiropractor 08/04/17
--- OUTSIDE RECORDS SUMMARY | 2024-01-07 10:29 | XMS_ITS | Clinical Summary ---
Author Name Unknown Organization [facility] Address [address] [place] [address] Care Team Providers Care Blankbook Stitching Machine Operator Name Role Phone Unavailable Primary Care Provider Unavailabl e Source Comments You are receiving this document as you are listed as the primary care provider,follow-up provider, or the patient has been referred to you for consultation.This is in compliance with the Medicare and[facility] Hospitalcaid EHR Incentive Program,which states Providers who [...] Vaccine (3 season) 2023 11/16/2020, 10/19/2020 Influenza (Season Ended) 2024 020, 05/31/2019, 06/28/2018, Additional history exists DTaP/Tdap/Td (3 [...]
[2024-01-08 13:12] LABS: Keppra (Levetiracetam) 47 ug/mL (10-40)
== END 2024-01-07 10:25 | disposition home or self-care (01) ==
LOC: NPINS 10:24
PROVIDERS: PCP Family Medicine; Visit Provider Psychiatry & Neurology Neurology
DX: R56.9 Unspecified convulsions (principal)
CPT/HCPCS: 80177

== ENCOUNTER 2024-03-16 11:44 | Outpatient (CLI) | payer MEDICARE, BC, SELFPAY ==
--- OUTSIDE RECORDS SUMMARY | 2024-03-19 13:54 | XMS_ITS | Clinical Summary ---
Author Organization [facility] Address [address] [place] [address] Care Team Providers Care Seat Mender Name Role Phone Unavailable Primary Care Provider Unavailabl e Source Comments You are receiving this document as you are listed as the primary care provider,follow-up provider, or the patient has been referred to you for consultation.This is in compliance with the Medicare and[facility] Hospitalcaid EHR Incentive Program,which states Providers who transition their patient to another setting of careor provider of care or refers their patient to another provider of care shouldprovide summary care record for each transition of care or referral. [facility] Allergies No known active allergies Medications Medication [...] (2 of 3) 11/16/2015 09/21/2015 COVID-19 Vaccine ( season) 2023 11/16/2020, 10/19/2020 Influenza (#1) 2024 05/29/2020, 10/0 08/2018, 06/28/2018, Additional history exists [...]
--- OUTSIDE RECORDS SUMMARY | 2024-03-19 13:54 | XMS_ITS | Clinical Summary ---
Author Organization [facility] Address [place], [place] [address] Care Team Providers Care Survey Research Teacher Name Role Phone Mahamed Lanier Unavailable [phone] DollLevarleidy Bowden DC Unavailable [phone] Pcp, No Primary Care Provider Unavailabl [...] Cancer Brother 2 leukemia Heart Disease Father [place], 81yr Hyperlipidemia Father Hypertension Father Heart Disease [...] Outcome GA Total Labor Labor/2nd/3rd Weight Sex Type Anes PTL Sana A1 A5 Name Clin Last Filed Vital Signs Vital Sign Reading [...] Body Mass Index 31.12 07/14/2018 9:25 AM INSURANCE MANAGER Plan of Treatment Health Maintenance Due Date [...] 2 SITES AXIAL Routine 07/31/2016 9:27 AM INSURANCE MANAGER Menopause from Last 3 Months or Most Recently Relevant to Health Maintenance Results * (ABNORMAL) XR DXA BONE DENSITY 2 SITES AXIAL (07/31/2016 9:27 AM INSURANCE MANAGER) Anatomical Region Laterality Modality Spine, HIPS, HIPL, HIPR Other Narrative 08/08/2016 4:43 PM INSURANCE MANAGER Please see scanned document for results of this study. [place] GREEN WARE CASTER DEXA from Last 3 Months or Most Recently Relevant to Health Maintenance Care Teams Survey Research Teacher Relationship Specialty Start Date End Date Pcp, No . PCP - General 08/06/18 Mahamed Lanier [address] [place] [address] Cork Mixer 07/20/13 Malia Doll DC [address] [place] [address] Chiropractor 08/04/17
== END 2024-03-16 11:45 | disposition home or self-care (01) ==
LOC: NFLDREF 03-19 13:52
PROVIDERS: PCP Family Medicine; Referring Provider Family Medicine; Visit Provider Family Medicine
DX: E89.0 Postprocedural hypothyroidism (principal); E78.5 Hyperlipidemia, unspecified; E55.9 Vitamin D deficiency, unspecified; I10 Essential (primary) hypertension; F41.1 Generalized anxiety disorder; G40.909 Epilepsy, unspecified, not intractable, without status epilepticus
CPT/HCPCS: 80053; 84439; 84443; 84480

== ENCOUNTER 2024-03-30 14:40 | Outpatient (CLI) | payer MEDICARE, BC, SELFPAY ==
--- OUTSIDE RECORDS SUMMARY | 2024-03-30 14:43 | XMS_ITS | Clinical Summary ---
Author Organization [facility] Address [address] [place] [address] Care Team Providers Care Hand Wood Sander Name Role Phone Unavailable Primary Care Provider Unavailabl e Source Comments You are receiving this document as you are listed as the primary care provider,follow-up provider, or the patient has been referred to you for consultation.This is in compliance with the Medicare and[facility] Hospitalcaid EHR Incentive Program,which states Providers who transition their patient to another setting of careor provider of care or refers their patient to another provider of care shouldprovide summary care record for each transition of care or referral. [facility] Allergies No known active allergies Medications Medication [...]
--- OUTSIDE RECORDS SUMMARY | 2024-03-30 14:43 | XMS_ITS | Clinical Summary ---
Author Organization [facility] Address [place], [place] [address] Care Team Providers Care Fsr Name Role Phone Mahamed Lanier Unavailable [phone] DollLevarleidy Bowden DC Unavailable [phone] Pcp, No Primary Care Provider Unavailabl [...] Body Mass Index 31.12 07/14/2018 9:25 AM DEMURRAGE AGENT Plan of Treatment Health Maintenance Due Date [...] 2 SITES AXIAL Routine 07/31/2016 9:27 AM DEMURRAGE AGENT Menopause from Last 3 Months or Most Recently Relevant to Health Maintenance Results * (ABNORMAL) XR DXA BONE DENSITY 2 SITES AXIAL (07/31/2016 9:27 AM DEMURRAGE AGENT) Anatomical Region Laterality Modality Spine, HIPS, HIPL, HIPR Other Narrative 08/08/2016 4:43 PM DEMURRAGE AGENT Please see scanned document for results of this study. [place] OPERATOR AND TRUCK DRIVER DEXA from Last 3 Months or Most Recently Relevant to Health Maintenance Care Teams Fsr Relationship Specialty Start Date End Date Pcp, No . PCP - General 08/06/18 Mahamed Lanier [address] [place] [address] Lead Php Developer 07/20/13 Malia Doll DC [address] [place] [address] Chiropractor 08/04/17
--- NOTE | 2024-03-30 15:00 | CRLHL7_ITS ---
For Patients: As a result of the Century Cures Act, medical imaging exams and procedure reports are released immediately into your electronic medical record. You may view this report before your referring provider. If you have questions, please contact your health care provider. BILATERAL SCREENING MAMMOGRAM WITH COMPUTER-AIDED DETECTION AND TOMOSYNTHESIS TECHNIQUE: CC and MLO views were obtained. These mammographic images have been obtained using full-field digital technique. These mammographic images were interpreted with the benefit of computer-aided detection. Breast tomosynthesis was used in this interpretation. COMPARISON FILM: 11/21/22, 05/29/21, 04/09/20. FINDINGS: There are scattered areas of fibroglandular density. IMPRESSION: There is no radiographic evidence for malignancy. ASSESSMENT: BI-RADS Category 2: Benign RECOMMENDATION: Routine screening mammogram in 1 year. A lay language report of this examination will be provided to the patient. JOSÉ BUTTS M.D. Diagnostic Radiologist [email or web address] Transcribed: 2:[address]/Dictated by: José Butts MD @ 04/01/2024 9:27:00 AM (Electronically Signed)
--- NOTE | 2024-03-30 15:30 | CRLHL7_ITS ---
For Patients: As a result of the Century Cures Act, medical imaging exams and procedure reports are released immediately into your electronic medical record. You may view this report before your referring provider. If you have questions, please contact your health care provider. DXA BONE MINERAL DENSITY STUDY Reason for exam: Screening. Current height (inches): 62 Weight (lbs.): 180 Menopause age: 52 Ethnicity: White 1. Have you had a previous hip or vertebral fracture? No. 2. Have you had any fractures during your adult life which did not result from significant trauma (e.g., auto accident)? No. 3. Did either of your parents have a hip fracture? No. 4. Do you smoke? No. 5. Have you ever taken Glucocorticoids? No. 6. Do you have rheumatoid arthritis? No. 7. Do you have secondary osteoporosis? No. 8. Do you drink 3 or more alcoholic drinks per day? No. 9. Are you being treated for osteoporosis? No. 10. Have you ever taken any of the following medications: Actonel, Evista, Fosamax, Miacalcin, Reclast, Boniva, Forteo, HRT (i.e., estrogen/hormone therapy), Protelos, Prolia, Vitamin D, Calcium, other ??? please specify. ANSWER: No. 11. Do you have any of the following medical conditions: Anorexia or bulimia, asthma or emphysema, end stage renal disease, hyperparathyroidism, any seizure disorders, cancer, inflammatory bowel diseases, hysterectomy, other ??? please specify. ANSWER: Yes; hysterectomy. 12. What was your maximum height (inches)? 64. 13. Do you perform weightbearing exercise regularly? Yes. 14. Do you regularly consume dairy products? Yes. 15. Do you drink caffeinated beverages? Yes. 16. At what age did your period start? 13. 17. Are you premenopausal? No. 18. How many full-term pregnancies have you had? 2. 19. Have you ever missed your period for more than 6 months in a row (not including or menopause)? No. TECHNIQUE: Bone mineral density study was performed using the [employer]. FINDINGS: The results of the study expressed as bone mineral density (BMD) are as follows: Lumbar Spine L1 to L4: BMD: 1.105 g/cm2. T-score: 0.5. Z-score: 3.0. Neck Left: BMD: 0.637 g/cm2. T-score: -1.9. Z-score: 0.2. Right: BMD: 0.593 g/cm2. T-score: -2.3. Z-score: -0.2. Total Left: BMD: 0.855 g/cm2. T-score: -0.7. Z-score: 1.1. Right: BMD: 0.827 g/cm2. T-score: -0.9. Z-score: 0.9. IMPRESSION: Osteopenia. COMPARISON: Compared with scan of 09/13/2018, the bone mineral density has decreased by 7.9% at the spine and increased by 5.9% at the hip. *Comparison exams done prior to 01/2020 were performed on different unit, [employer]. FRAX 10-year Fracture Risk Major Osteoporotic Fracture: 14% Hip Fracture: 4.1% Reported Risk Factors: [place] () Neck BMD = 0.593, BMI = 32.9. JOSÉ BUTTS M.D. Diagnostic Radiologist [email or web address] Transcribed: 11:[address]/Dictated by: José Butts MD @ 04/05/2024 9:24:00 AM (Electronically Signed)
== END 2024-03-30 14:41 | disposition home or self-care (01) ==
LOC: MAMMO 14:42
PROVIDERS: PCP Family Medicine; Visit Provider Family Medicine
DX: Z12.31 Encounter for screening mammogram for malignant neoplasm of breast (principal); Z13.820 Encounter for screening for osteoporosis; M85.89 Other specified disorders of bone density and structure, multiple sites; Z78.0 Asymptomatic menopausal state
CPT/HCPCS: 77063; 77067; 77080

== ENCOUNTER 2024-06-20 08:19 | Outpatient (CLI) | payer MEDICARE, BC, SELFPAY ==
--- OUTSIDE RECORDS SUMMARY | 2024-06-21 16:01 | XMS_ITS | Clinical Summary ---
Author Organization [facility] Address [address] [place] [address] Care Team Providers Care Stamper Blocker Name Role Phone Unavailable Primary Care Provider Unavailabl e Source Comments You are receiving this document as you are listed as the primary care provider,follow-up provider, or the patient has been referred to you for consultation.This is in compliance with the Medicare and[facility] Hospitalca[facility] EHR Incentive Program,which states Providers who transition their patient to another setting of careor provider of care or refers their patient to another provider of care shouldprovide summary care record for each transition of care or referral. [facility] Allergies No known active allergies Medications [...] 1945 Zoster/Shingles (2 of 3) 11/16/2015 09/21/2015 RSV (1 - 1-dose 75+ series) 11/27/2022 COVID-19 Vaccine ( season) 2024 11/16/2020, 10/19/2020 Influenza (#1) 2024 05/29/2020, 10/0 [...] on patient's age to complete this topic RSV Aged Out No longer eligi ble based on patient's age to complete this topic MCV4 Aged Out No longer eligi ble based on patient's age to complete this topic
--- OUTSIDE RECORDS SUMMARY | 2024-06-21 16:01 | XMS_ITS | Clinical Summary ---
Author Organization [facility] Address [place], [place] [address] Care Team Providers Care Automotive General Sales Manager Name Role Phone Mahamed Lanier Unavailable [phone] Lavon Malia Bowden DC Unavailable [phone] Pcp, No Primary Care Provider Unavailabl [...] Diagnosed Date PAC (premature atrial contraction) 06/06/2015 Overview (06/06/2015): 11/2014 Screen for colon cancer 08/05/2011 Overview (08/05/2011): Colonoscopy 07/2011 normal repeat in 10 years HTN (hypertension) 06/27/2010 Unspecified hypothyroidism 07/30/2008 Panic disorder without agoraphobia 12/21/2007 Goiter, unspecified 06/15/2007 Overview (06/15/2007): Benign adenomatous 1994 Esophageal reflux 06/15/2007 Other [...] Cancer Brother 2 leukemia Heart Disease Father [place], 81yr Hyperlipidemia Father Hypertension Father Heart Disease [...] Body Mass Index 31.12 07/14/2018 9:25 AM LIGHT ARMORED VEHICLE OFFICER Plan of Treatment Health Maintenance Due Date Last Done Comments Hepatitis C screening for ag e -11/27/1963 Zoster (shingles) series for age 50+ (2 of 3) 11/16/2015 09/21/2015 Tetanus booster 06/20/2018 06/20/2008, 02/27/1997 Medicare Wellness for age 65+ 08/05/2018, 07/30/2016, 07/25/2015, Additional history exists BMI (ht and wt on same day) for age 18+ 07/14/2019 07/14/2018, 08/04/2017, 06/05/2017, Additional history exists Depression screening for age 12+ 07/14/2019 07/14/2018, 08/04/2017, 08/04/2017, Additional history exists RSV vaccine for adults or (1 - 1-dose 75+ series) 11/27/2022 COVID-19 vaccine series ( season) 2024 11/16/2020, 10/19/2020 Influenza for age 65+ 05/01/2024 06/28/2018 , 06/17/2017, 06/20/2016, Additional history exists Tdap Completed 06/20/2008 DEXA/DXA scan for age 65+ Completed 07/31/2016 Pneumococcal series for age 65+ Completed 7, 07/30/2016 Procedures Procedure Name Priority Date/Time Associated Diagnosis Comments XR DXA BONE DENSITY 2 SITES AXIAL Routine 07/31/2016 9:27 AM LIGHT ARMORED VEHICLE OFFICER Menopause from Last 3 Months or Most Recently Relevant to Health Maintenance Results * (ABNORMAL) XR DXA BONE DENSITY 2 SITES AXIAL (07/31/2016 9:27 AM LIGHT ARMORED VEHICLE OFFICER) Anatomical Region Laterality Modality Spine, HIPS, HIPL, HIPR Other Narrative 08/08/2016 4:43 PM LIGHT ARMORED VEHICLE OFFICER Please see scanned document for results of this study. Lili River NP DEXA from Last 3 Months or Most Recently Relevant to Health Maintenance Care Teams Automotive General Sales Manager Relationship Specialty Start Date End Date Pcp, No . PCP - General 08/06/18 Mahamed Lanier [address] [place] [id number] Smoke And Flame Specialist 07/20/13 Malia Doll DC [address] [place] [id number] Chiropractor 08/04/17
== END 2024-06-20 08:20 | disposition home or self-care (01) ==
LOC: NFLDREF 06-21 15:59
PROVIDERS: PCP Family Medicine; Referring Provider Family Medicine; Visit Provider Family Medicine
DX: I10 Essential (primary) hypertension (principal); E89.0 Postprocedural hypothyroidism; E55.9 Vitamin D deficiency, unspecified; F41.1 Generalized anxiety disorder; G40.909 Epilepsy, unspecified, not intractable, without status epilepticus; E22.2 Syndrome of inappropriate secretion of antidiuretic hormone
CPT/HCPCS: 80053; 84439; 84443

== ENCOUNTER 2024-08-10 09:50 | Outpatient (REF) | payer MEDICARE, BC, SELFPAY ==
[2024-08-12 14:53] LABS: Keppra (Levetiracetam) 47 ug/mL (10-40)
== END 2024-08-10 09:51 | disposition home or self-care (01) ==
LOC: NPINS 09:50
PROVIDERS: PCP Family Medicine; Visit Provider Psychiatry & Neurology Neurology
DX: R56.9 Unspecified convulsions (principal); G60.9 Hereditary and idiopathic neuropathy, unspecified; Z51.81 Encounter for therapeutic drug level monitoring
CPT/HCPCS: 80177

== ENCOUNTER 2024-09-13 15:14 | Outpatient (CLI) | payer MEDICARE, BC, SELFPAY | END 2024-09-13 15:15 | disposition home or self-care (01) | LOC: AMB 09-28 17:08 | PROVIDERS: PCP Family Medicine; Visit Provider Emergency Medicine | DX: R56.9 Unspecified convulsions (principal) | CPT/HCPCS: A0425; A0427 ==

== ENCOUNTER 2024-09-13 15:54 | Emergency (ER) | payer MEDICARE, BC, SELFPAY ==
[2024-09-13] VITALS (9 sets, daily range): BP systolic 138–166; BP diastolic 62–73; PULSE 69–75; RESP 16; TEMP 36.1–36.8; O2SAT 94–98
--- NOTE | 2024-09-13 16:20 | ED.GENADULT ---
HPI - General Adult General Date Seen: 09/13/24 Chief complaint: Seizure Stated complaint: Seizure Time Seen by Provider: 09/13/24 16:20 History of Present Illness HPI narrative: 78-year-old female with a past medical history of seizure disorder, SI ADH, anxiety, hypertension, osteoarthritis, ER dyslipidemia, vitamin-D deficiency . She is brought by EMS. She has a history of seizure disorder. History from EMS is that the patient was complaining to her about lights bother her at about 2:30 p.m.. Her adjusted the blinds and then left the house. When he came home at about 320 he found the patient confused. She had been incontinent of urine. He told EMS it seems to be her postictal state. Patient's was very specific with EMS about her seizures and having gone through this several times. When EMS arrived she was confused and not talkative. Blood sugar was 137. By the time they arrived here the hospital patient was answering questions appropriately. When I talked to the patient she is awake but says she feels tired and ?very dry. ?. She is able to recall that she has been doing well lately. She says she has been sleeping poorly, but she always sleeps poorly and there has been no change in her sleep De Guzman. No recent fever. No recent illness. No vomiting or diarrhea. She has been consistent in taking her seizure medications. She is confident that she took this morning's dose. Her regular dose of Keppra is 1750 mg b.i.d.. She has been on that dose for quite some time. Her last seizure was about a year or ago. The patient recalls that her primary care provider is Dr. Reyna, here in [place]. She has to think for a minute, but then she recalls her neurologist's name, at [facility]. He after my initial assessment, the patient's and daughter arrive. They confirm the above history. says that she was complaining of sensitivity to light, which is sometimes an aura to seizure. He did just the blinds for her and then he had left the house for less than an hour. He did not see her having a seizure. When he got back, he discovered her with altered mental status. He says she looked like she had had a seizure. Related Data Home Medications ?Medication ?Instructions ?Recorded ?Confirmed aspirin 81 mg tablet,delayed 81 mg PO QDAY 04/03/22 06/23/24 release (Adult Aspirin Regimen) levetiracetam 500 mg tablet 1,750 mg PO BID 12/16/23 06/23/24 (Keppra) Previous Rx's ?Medication ?Instructions ?Recorded cholecalciferol (vitamin D3) 25 2,000 unit PO QDAY #60 caps 07/31/22 mcg (1,000 unit) capsule simvastatin 20 mg tablet 20 mg PO QPM #90 tabs 09/16/23 amlodipine 5 mg tablet 5 mg PO QDAY #90 tabs 12/16/23 levothyroxine 50 mcg tablet 50 mcg PO DAILY #90 tabs 08/22/24 atenolol 50 mg tablet 50 mg PO QDAY #90 tabs 09/12/24 lorazepam 0.5 mg tablet 0.5 mg PO BID-TID anxiety #180 tabs 09/13/24 Allergies Allergy/AdvReac Type Severity Reaction Status Date / Time sertraline Allergy Unknown sodium drop Verified 06/23/24 13:24 hydrochlorothiazide AdvReac Severe hyponatremi Verified 06/23/24 13:24 a [facility] Medical History (Updated 09/13/24 @ 18:16 by Harman Grimes MD) Rash of groin ?R21 - Rash and other nonspecific skin eruption (ICD-10) Increased prolactin level (~2019) ?R79.89 - Other specified abnormal findings of blood chemistry (ICD-10) Anxiety ?F41.9 - Anxiety disorder, unspecified (ICD-10) Phobia, unspecified ?F40.9 - Phobic anxiety disorder, unspecified (ICD-10) History of panic attacks ?Z86.59 - Personal history of other mental and behavioral disorders (ICD-10) Vulvar disorder ?N90.9 - Noninflammatory disorder of vulva and perineum, unspecified (ICD-10) Vitamin D deficiency ?E55.9 - Vitamin D deficiency, unspecified (ICD-10) 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) ?E22.2 - Syndrome of inappropriate secretion of antidiuretic hormone (ICD-10) Seizure disorder (2019) ?G40.909 - Epilepsy, unspecified, not intractable, without status epilepticus (ICD-10) Postoperative hypothyroidism (2003) ?E89.0 - Postprocedural hypothyroidism (ICD-10) Peripheral neuropathy (2019) ?G62.9 - Polyneuropathy, unspecified (ICD-10) Panic attack ?F41.0 - Panic disorder [episodic paroxysmal anxiety] (ICD-10) Palpitations ?R00.2 - Palpitations (ICD-10) Microscopic hematuria ?R31.29 - Other microscopic hematuria (ICD-10) Major depressive disorder ?F32.9 - Major depressive disorder, single episode, unspecified (ICD-10) Generalized anxiety disorder with panic attacks ?F41.1 - Generalized anxiety disorder (ICD-10) ?F41.0 - Panic disorder [episodic paroxysmal anxiety] (ICD-10) Dyslipidemia ?E78.5 - Hyperlipidemia, unspecified (ICD-10) Benign paroxysmal positional vertigo (~12/2020) ?H81.10 - Benign paroxysmal vertigo, unspecified ear (ICD-10) Acute anxiety ?F41.9 - Anxiety disorder, unspecified (ICD-10) Surgical History (Updated 09/15/22 @ 13:01 by Joanne Mcrae MD) History of total thyroidectomy (2003) ?E89.0 - Postprocedural hypothyroidism (ICD-10) History of hysterectomy with bilateral oophorectomy (1988) ?Z90.710 - Acquired absence of both cervix and uterus (ICD-10) ?Z90.722 - Acquired absence of ovaries, bilateral (ICD-10) Family History (Updated 09/15/22 @ 13:03 by Joanne Mcrae MD) Mother Atrial fibrillation, Onset Age: 70 Stroke, Onset Age: 76 CLL (chronic lymphocytic leukemia) Sister Breast cancer, Onset Age: 54 Brother ALL (acute lymphoblastic leukemia) Father Myocardial infarction, Onset Age: 81 Other Osteoarthritis Social History (Updated 09/16/23 @ 12:58 by Josephine Javed ~ CTA) Narrative: , 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, 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, 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 exercises 5 days a week walks 40 minute non-smoker social drinker- 0-1/week What is your current living situation?: I presently have a place to live Problems where you live: no known problems In the past 12 months, utilities in danger of being shut off: no In past 12 months, lack of transportation kept you from medical appts, meetings, work, or getting things needed for daily living: no In the past 12 mos, have been you worried that your food would run out before you had money to buy more?: never true In the past 12 mos, the food you bought just didn't last and you didn't have money to buy more?: never true Smoking Status: Never smoker Do you use any of these nicotine containing products: None Second hand tobacco smoke exposure: No How often do you have a drink containing alcohol: never AUDIT-C Alcohol total score: 0 Non-prescribed substance use: denies use How often does anyone, including family, friends and others, physically hurt you: never How often does anyone, including family, friends and others, insult or talk down to you: never How often does anyone, including family, friends and others, threaten you with harm: never How often does anyone, including family, friends and others, scream or curse at you: never Exam Narrative: Exam Narrative: Primary Survey: A- patent. Speaking clearly. Phonation normal. No stridor. B- breathing easily. Lung sounds clear and equal. Oxygen saturation normal on room air C- no active bleeding. Blood pressure stable. Symmetric pulses and cap refill in 4 extremities. D- awake but prefers to keep her eyes closed. and oriented x3. Opens eyes to voice in for exam GCS 14. No focal deficits. Constitutional: Appears well-developed and well-nourished. Alert. Conversant. Non toxic. HENT: Head: Atraumatic. No depressed skull fracture, Raccoon Eyes, Dobbs's sign, or hemotympanum. Face normal. TMs normal Nose: Nose normal. Mouth/Throat: Oral mucosa is clear and moist. no trismus. Pharynx normal. Tonsils symmetric. No tonsillar enlargement, erythema, or exudate. No tongue lacerations. Eyes: Conjunctivae normal. EOM normal. Pupils equal, round, and reactive to light. No scleral icterus. Neck: Normal range of motion. Neck supple. No tracheal deviation present. No posterior midline tenderness Cardiovascular: Normal rate, regular rhythm. No gallop. No friction rub. No murmur heard. Symmetric radial artery pulses Pulmonary/Chest: Effort normal. No stridor. No respiratory distress. No wheezes. No rales. No rhonchi . No tenderness. Abdominal: Soft. Bowel sounds normal. No distension. No mass. No tenderness. No rebound. No guarding. Musculoskeletal: RUE: Normal range of motion. No tenderness. No deformity LUE: Normal range of motion. No tenderness. No deformity RLE: Normal range of motion. No edema. No tenderness. No deformity LLE: Normal range of motion. No edema. No tenderness. No deformity Lymph: No cervical adenopathy. Neurological: Awake and oriented to person, place, and time. Normal strength. CN II-VII intact. No sensory deficit. GCS eye subscore is 3. GCS verbal subscore is 5. GCS motor subscore is 6. Normal coordination Generalized weakness and requires assistance to sit forward in bed. Moves both upper and both lower extremities purposefully. No focal deficits. Skin: Skin is warm and dry. No rash noted. No pallor. Normal capillary refill. Psychiatric: Normal mood. Somewhat tired, but otherwise Normal affect. Her and daughter arrived and both are attentive. They interact supportively together. Const: Vital Signs, click to edit/add: Vital Signs - 24 hr 09/13/24 15:58 09/13/24 16:12 09/13/24 16:15 Temperature 96.9 F L Pulse Rate 73 69 Pulse Rate [Pulse Oximeter] 75 Respiratory Rate 16 Blood Pressure [Ri ght Upper Arm] 138/62 Pulse Oximetry 98 94 98 Oxygen Delivery Me thod Room Air 09/13/24 16:30 09/13/24 16:45 09/13/24 17:01 Temperature Pulse Rate 70 70 70 Pulse Rate [Pulse Oximeter] Respiratory Rate Blood Pressure [Ri ght Upper Arm] Pulse Oximetry 98 97 96 Oxygen Delivery Me thod 09/13/24 17:15 09/13/24 17:37 09/13/24 17:38 Temperature 98.2 F Pulse Rate 71 Pulse Rate [Pulse Oximeter] Respiratory Rate 16 Blood Pressure [Ri ght Upper Arm] 166/73 H Pulse Oximetry 96 Oxygen Delivery Me thod Course Course ED Course: Recheck- and daughter arrived. I escorted them back to her room. Reevaluation(s) Reevaluation #1: Recheck-patient more alert, conversant. Back to her neurologic baseline. Has been ambulatory in the hallway. Steady. Vital Signs Vital signs: Initial Vital Signs Temperature 96.9 F L 09/13/24 15:58 Temperature Source Temporal Artery Scan 09/13/24 15:58 Pulse Rate 75 09/13/24 15:58 Respiratory Rate 16 09/13/24 15:58 Blood Pressure 138/62 09/13/24 15:58 Blood Pressure Mean 87 09/13/24 15:58 Blood Pressure Position Sitting 09/13/24 15:58 Pulse Oximetry 98 09/13/24 15:58 Oxygen Delivery Method Room Air 09/13/24 15:58 Vital Signs Temperature 96.9 F L 09/13/24 15:58 Pulse Rate 75 09/13/24 15:58 Respiratory Rate 16 09/13/24 15:58 Blood Pressure 138/62 09/13/24 15:58 Pulse Oximetry 98 09/13/24 15:58 Oxygen Delivery Method Room Air 09/13/24 15:58 Temperature 98.2 F 09/13/24 17:37 Pulse Rate 71 09/13/24 17:15 Respiratory Rate 16 09/13/24 17:15 Blood Pressure 166/73 H 09/13/24 17:38 Pulse Oximetry 96 09/13/24 17:15 Oxygen Delivery Method Room Air 09/13/24 15:58 Medical Decision Making MDM Narrative Medical decision making narrative: Very pleasant 78-year-old female with a known seizure disorder, managed on Keppra. Also Ativan managed on lorazepam. She is brought to the ER today by EMS because of a confused event. She seemed postictal at home although she did have a witnessed seizure today. She had gradual and steady improvement in her neurologic status while being transferred by EMS and then completely returned back to normal upon arrival here to the ER. At this point. Clinical he scenario is highly suggestive that she had an unwitnessed seizure with postictal spell. She did not bite her tongue. She was incontinent of urine. She is now back to neurologic baseline. She has no headache or signs of head injury. At this point I do not think she needs head CT, he or IV anti epileptic medications. We did send off a Keppra level to help with decisions about long-term management with her seizure meds. She will follow-up with her doctors with the [facility]. Precautions for return to the ER reviewed. Discharge Plan Discharge Clinical Impression: Seizure Patient Disposition: Home, Self-Care Condition: Stable Instructions: Recurrent Seizures in Adults (ED) Additional Instructions: As we discussed, please continue on your current medications including Keppra and Ativan We have ordered a Keppra level for you today. This result is not back yet and probably will come back in about 2 days. You can call the ER at [phone] on to find out your test results. ( I will also try to call you if the result comes back sooner than that.) Please call [facility] to discuss your seizure and your dose of Keppra. They may want you to increase your dose of Keppra, depending on what your level shows. Come back to the ER right away if you have any concerns; especially, more seizures, fever, confusion, vomiting or dehydration, or headache. Prescriptions: No Action simvastatin 20 mg tablet 20 mg PO QPM Qty: 90 3RF levetiracetam [Keppra] 500 mg tablet 1,750 mg PO BID amlodipine 5 mg tablet 5 mg PO QDAY Qty: 90 3RF aspirin [Adult Aspirin Regimen] 81 mg tablet,delayed release (DR/EC) 81 mg PO QDAY cholecalciferol (vitamin D3) 25 mcg (1,000 unit) capsule 2,000 unit PO QDAY Qty: 60 0RF levothyroxine 50 mcg tablet 50 mcg PO DAILY Qty: 90 0RF atenolol 50 mg tablet 50 mg PO QDAY Qty: 90 0RF lorazepam 0.5 mg tablet 0.5 mg PO BID-TID Qty: 180 0RF Rx Instructions: 1 tablet twice for anxiety, may take one extra tablet if needed Follow Up/Referrals: Joanne Mcrae MD [Primary Care Provider] - Stand Alone Forms: [employer] Info Instructions
--- OUTSIDE RECORDS SUMMARY | 2024-09-13 17:13 | XMS_ITS | Clinical Summary ---
Author Organization [facility] Address [place], [place] [address] Care Team Providers Care Wire Loop Machine Operator Name Role Phone Mahamed Lanier Unavailable [phone] LavonLevarleidy Bowden DC Unavailable [phone] Pcp, No Primary Care Provider Unavailabl e Allergies Active Allergy Reactions Criticality Noted Date Comments Hydrochlorothiazide Hyponatremia High 03/07/2021 Sertraline Hyponatremia 03/07/2021 Medications atenoloL (TENORMIN) 50 mg tablet Daily 03/06/2021 [...] Answer Date Recorded PHQ-2 Score 0 10/31/2018 Comments No Sex and Gender Information Value Date Recorded Sex Assigned at Not on file Legal Sex Female 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 Gender Identity Not on file Sexual Orientation Not on file Occupation Industry Job Start Date Job End Date Not on file Not on file Not on file Not on file Obstetrics History Para Term AB IAB SAB Ectopic Multiple Livin g Live Births 2 2 Date Outcome GA Total Labor Labor/2nd/3rd Weight Sex Type Anes PTL Sana A1 A5 Name Clin Last Filed Vital Signs Vital Sign Reading Time Taken Comments Blood Pressure 138/81 03/27/2021 1:31 PM CDT Pulse 73 03/27/2021 1:31 PM CDT Temperature 36.3 C (97.4 F) 07/14/2018 9:25 AM COMMODITY MERCHANT Respiratory Rate - - Oxygen Saturation 98% 03/27/2021 1:31 PM CDT Inhaled Oxygen Concentration - - Weight 79.6 kg (175 lb 6.4 oz) 03/27/2021 1:31 P M CDT Height 159.9 cm (5' 2.95) 07/14/2018 9:25 AM CS T Body Mass Index 31.12 07/14/2018 9:25 AM COMMODITY MERCHANT Plan of Treatment Health Maintenance Due Date [...] 65+ Completed 07/31/2016 Pneumococcal series for age 50+ Completed 7, 07/30/2016 Procedures Procedure Name Priority Date/Time Associated Diagnosis Comments XR DXA BONE DENSITY 2 SITES AXIAL Routine 07/31/2016 9:27 AM COMMODITY MERCHANT Menopause from Last 3 Months or Most Recently Relevant to Health Maintenance Results * (ABNORMAL) XR DXA BONE DENSITY 2 SITES AXIAL (07/31/2016 9:27 AM COMMODITY MERCHANT) Anatomical Region Laterality Modality Spine, HIPS, HIPL, HIPR Other Narrative 08/08/2016 4:43 PM COMMODITY MERCHANT Please see scanned document for results of this study. 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 PCP - General 08/06/18 Mahamed Lanier [address] [place] [id number] Manager Software Development 07/20/13 Malia Doll DC [address] [place] [id number] Chiropractor 08/04/17
--- OUTSIDE RECORDS SUMMARY | 2024-09-13 17:13 | XMS_ITS | Clinical Summary ---
Author Organization [facility] Address [address] [place] [address] Care Team Providers Care Roofing Superintendent Name Role Phone Unavailable Primary Care Provider Unavailabl e Source Comments You are receiving this document as you are listed as the primary care provider,follow-up provider, or the patient has been referred to you for consultation.This is in compliance with the Medicare and[facility] EHR Incentive Program,which states Providers who transition their patient to another setting of careor provider of care or refers their patient to another provider of care shouldprovide summary care record for each transition of care or referral. [facility] Allergies No known active allergies [...]
[2024-09-15 23:18] LABS: Keppra (Levetiracetam) 55 ug/mL (10-40)
== END 2024-09-13 18:31 | disposition home or self-care (01) ==
PROVIDERS: Emergency Provider Emergency Medicine; PCP Family Medicine
DX: R56.9 Unspecified convulsions (principal)
CPT/HCPCS: 36415; 80177; 99282; 99283

== ENCOUNTER 2024-09-26 07:43 | Outpatient (CLI) | payer MEDICARE, BC, SELFPAY | END 2024-09-26 07:44 | disposition home or self-care (01) | LOC: NFLDREF 10-03 00:43 | PROVIDERS: PCP Family Medicine; Referring Provider Family Medicine; Visit Provider Family Medicine | DX: I10 Essential (primary) hypertension (principal); E78.5 Hyperlipidemia, unspecified; E03.9 Hypothyroidism, unspecified; E55.9 Vitamin D deficiency, unspecified; M85.80 Other specified disorders of bone density and structure, unspecified site; G62.9 Polyneuropathy, unspecified | CPT/HCPCS: 80053; 80061; 82306; 82607; 84439; 84443; 84480 ==

== ENCOUNTER 2024-10-15 18:32 | Outpatient (CLI) | payer MEDICARE, BC, SELFPAY | END 2024-10-15 18:33 | disposition home or self-care (01) | LOC: AMB 10-17 03:25 | PROVIDERS: PCP Family Medicine; Visit Provider Emergency Medicine Emergency Medical Services | DX: G40.909 Epilepsy, unspecified, not intractable, without status epilepticus (principal) | CPT/HCPCS: A0425; A0427 ==

== ENCOUNTER 2024-10-15 19:07 | Emergency (ER) | payer MEDICARE, BC, SELFPAY ==
[2024-10-15] VITALS (12 sets, daily range): BP systolic 153–160; BP diastolic 72–86; PULSE 71–93; RESP 10–21; TEMP 36.7; O2SAT 96–100
--- OUTSIDE RECORDS SUMMARY | 2024-10-15 19:09 | XMS_ITS | Clinical Summary ---
Author Organization [facility] Address [address] , [address] [place] [address] Phone Care Team Providers Care Human Service Worker Name Role Phone MedRec, MedRec Unavailable Conditions or Problems Problem Name Problem Code Onset Date Status Entry Date Provider Comment Standard Description Annotate Drug monitoring 548104087 (SNOMED CT) Active Key Ritchie Medication monitoring Anxiety disorder 459433218 (SNOMED CT) Active Key Ritchie Anxiety disorder Peripheral neuropathy 579697175 (SNOMED CT) Active Thomas Haynes MD Peripheral nerve disease Seizure, nos R56.9 (ICD-10-CM) Active Thomas Haynes MD Unspecified convulsions Medications Medication Instructions Start Date Stop Date Generic Name NDC Provider ATIVAN 0.5 MG TABS 1 tab bid and 1/2 tab at noon per her psychiatrist 01/31 lorazepam [id number] Cesar Maguire MD ATIVAN 0.5 MG TABS 1 tab or 0.5 mg bid by pcp now lorazepam [id number] Cesar Maguire MD LEVETIRACETAM 500 MG TABS TAKE 3.5 TABLETS (1750 MG TOTAL) BY MOUTH TWICE DAILY (MUST BE AUROBINDO BRAND) levetiracetam [id number] Joyce Polo DNP,DRUM OPERATOR,MULTIPLE EFFECT EVAPORATOR OPERATOR LEVETIRACETAM 500 MG TABS TAKE 3 TABLETS BY MOUTH TWICE A DAY [MUST BE AUROBINDO BRAND] 11/29 levetiracetam [id number] Cesar Maguier MD LEVETIRACETAM 500 MG TABS TAKE 3 TABLETS (1500 MG TOTAL) BY MOUTH TWICE DAILY (MUST BE AUROBINDO BRAND) 12/07 levetiracetam [id number] Cesar Maguire MD MELATONIN 3 MG TABS tablet by mouth 10/12 melatonin [id number] Joyce Polo DNP,DRUM OPERATOR,MULTIPLE EFFECT EVAPORATOR OPERATOR ATENOLOL 50 MG TABS atenolol [id number] Joyce Polo DNP,DRUM OPERATOR,MULTIPLE EFFECT EVAPORATOR OPERATOR LEVETIRACETAM 500 MG TABS TAKE 3 TABLETS BY MOUTH TWICE A DAY [MUST BE AUROBINDO BRAND] 11/29 levetiracetam [id number] Ananya Napoles PA-C LEVETIRACETAM 500 MG TABS TAKE TWO TABLETS BY MOUTH TWICE A DAY 05/20 levetiracetam [id number] Cesar Maguire MD LEVETIRACETAM 500 MG TABS TAKE TWO TABLETS BY MOUTH TWICE A DAY [MUST BE AUROBINDO BRAND] 08 levetiracetam [id number] Cesar Maguire MD MELATONIN 3 MG TABS tablet by mouth 10/12 melatonin [id number] Cesar Maguire MD ATIVAN 0.5 MG TABS 1 tab bid and 1/2 tab at noon per her psychiatrist 01/31 lorazepam [id number] Cesar Maguire MD LEVOTHYROXINE SODIUM 13 MCG CAPS levothyroxine [id number] Cesar Kidd MD AMLODIPINE BESYLATE 2.5 MG TABS amlodipine [id number] Cesar Maguire MD SIMVASTATIN 20 MG TABS simvastatin [id number] Cesar Maguire MD aspirin 81 mg capsule aspirin Cesar Maguire MD VITAMIN D3 10 MCG (400 UNIT) CAPS cholecalciferol (vitamin d3) 70480248336 Cesar Maguire MD KEPPRA 500 MG TABS 2 tabs PO BID 05/27 levetiracetam [id number] Thomas Haynes MD LEVETIRACETAM 500 MG TABS TAKE TWO TABLETS BY MOUTH TWICE A DAY 05/20 levetiracetam [id number] Thomas Haynes MD KEPPRA 500 MG TABS 2 tabs PO BID 05/27 levetiracetam [id number] Rodney Wells PA-C KEPPRA 500 MG TABS 1 in AM and 2 in PM 09/18 levetiracetam [id number] Thomas Haynes MD KEPPRA 500 MG TABS 1.5 tabs in AM and 2 tabs in PM 12/02 levetiracetam [id number] Thomas Haynes MD KEPPRA 500 MG TABS 1 in AM and 2 in PM 09/18 levetiracetam [id number] Thomas Haynes MD MELATONIN 3 MG TABS 6/ MELATONIN [id number] Margarette Nj RN KEPPRA 500 MG TABS 1 in AM and 2 in PM 09/18 LEVETIRACETAM [id number] Thomas Haynes MD KEPPRA 500 MG TABS 1 po wam and 1.5 po qhs 1 LEVETIRACETAM [id number] Danyelle Bhagat Medications Administered No information available. Allergies, Adverse Reactions, Alerts Observed no known allergies at Results Date Name Value Unit Range Flag Description Office Visit: Office Visit f ax MEDS REVIEW Done Documenta tion of current medications (procedure) Internal Other: Authorizatio n - OBS [email or web address] Yes Authoriza tion: Release of Information - Authorize [facility]an/[facility] - Payment and Healthcare Operations ROIAUTHOTHER Yes Authoriz ation: Release of Information - Authorize Others/Insurance - Payment and Healthcare Operations HIECONSENT Yes Consent To Release information to the Health Information Exchange (HIE) [email or web address] Yes Authorizat ion: Authorization for Noran/JAYLAN to leave messages, voicemail, send text messages, send emails AUTHRELHCARE Yes Authoriz ation: Release/Retrieval of Information to/from Healthcare Facilities, Pharmacy Benefit Payers and Providers AUTHPRIVPRAC Yes Authoriz ation: Notice of privacy practices AUTHBENEFIT Yes Authoriza tion: Assignment of Benefits and Payment Agreement Internal Other: Verbal Autho rization/Emergency Contact - OBS VERBAL_EMER Done Verbal au thorization and emergency contact Plan of Care Type Date Detail Appointment 10:30 AM Joyce holbrookl DNP,DRUM OPERATOR,MULTIPLE EFFECT EVAPORATOR OPERATOR, [address], [address], [place], [address], Pending order Follow up Pending order Follow up Pending order Levetiracetam (K eppra) Pending order Levetiracetam (K eppra) Pending Order exclud ed from report: Pending order Follow up with N eurologist or AMANDA Pending order Follow up Pending order Patient Instruct ions Pending order Levetiracetam (K eppra) Pending order Levetiracetam (K eppra) Pending order Levetiracetam (K eppra) Pending order Instructions for Staff Pending order CBC with Diff/Pl atelet Pending order Levetiracetam (K eppra) Pending order Patient Instruct ions Pending order Telemedicine Fol low up Pending order EMG bilateral lo w ext Pending order Folate (Folic Ac id) Serum Pending order Hemoglobin A1C Pending order Immunofixation S guillermo Pending order Levetiracetam (K eppra) Pending order Sjogren's Ab - S SA/SSB (ANTI-Ro/ANTI-La) Pending order Vitamin B1 (Thia mine) Pending order Vitamin B12 Pending order Vitamin B6 (Pyri doxine) Pending order t-Transglutamina se (tTG) IgA Pending order Hepatitis C Ab ( HCV) Pending order Telemedicine Fol low up Pending order Levetiracetam (K eppra) Pending order Basic Metabolic Panel (8) Pending order Levetiracetam (K eppra) Pending order Telemedicine Fol low up Pending order Telemedicine Fol low up Pending Order exclud ed from report: Pending order Telemedicine Fol low up Pending order EEG Routine Pending order Follow up Pending order Patient Instruct ions Procedures Code Procedure Name Date Entry Date ORDERS Follow up with Neurologist or AMANDA ORDERS Levetiracetam (Keppra) 08/01 ORDERS Patient Instructions [facility]-[id number] Documentation of current medicatio ns ORDERS Follow up ORDERS Levetiracetam (Keppra) 12/27 ORDERS Levetiracetam (Keppra) 12/07 ORDERS Levetiracetam (Keppra) 10/12 ORDERS Instructions for Staff 10/12 ORDERS CBC with Diff/Platelet 01/30 ORDERS Levetiracetam (Keppra) 01/30 [id number] Documentation of current medicatio ns ORDERS Patient Instructions ORDERS EMG bilateral low ext 02/20 CPT-02185 Nerve Conduction 5-6 studies CPT-52959 EMG with NCS (5+ muscles) - 1 limb 03/18 ORDERS Telemedicine Follow up 09/25 ORDERS Folate (Folic Acid) Serum 20/02/08 ORDERS Hemoglobin A1C ORDERS Immunofixation Serum ORDERS Levetiracetam (Keppra) 02/05 ORDERS Sjogren's Ab - SSA/SSB (ANTI-Ro/ANTI-La) ORDERS Vitamin B1 (Thiamine) 02/05 ORDERS Vitamin B12 ORDERS Vitamin B6 (Pyridoxine) 2021 ORDERS t-Transglutaminase (tTG) IgA ORDERS Hepatitis C Ab (HCV) ORDERS Telemedicine Follow up 03/22 ORDERS Levetiracetam (Keppra) 09/25 ORDERS Telemedicine Follow up 07/03 ORDERS Basic Metabolic Panel (8) 20/07/23 ORDERS Levetiracetam (Keppra) 07/16 ORDERS Follow up ORDERS Telemedicine Follow up 06/20 CPT-21877 EEG EXTENDED 41-60mins (END) ORDERS EEG Routine ORDERS Patient Instructions Vital Signs Date Name Value Unit Description Heart Rate 77 /min pulse rate Immunizations No information available. Advance Directives No information available.
--- OUTSIDE RECORDS SUMMARY | 2024-10-15 19:09 | XMS_ITS | Clinical Summary ---
Author Organization [facility] Address [place], [place] [address] Care Team Providers Care Brand Ambassador Name Role Phone Mahamed Lanier Unavailable [phone] LavonLevarleidy Bowden DC Unavailable [phone] Pcp, No Primary Care Provider Unavailabl [...] on file Legal Sex Female 6:10 AM NAIL ARTIST Gender Identity Not on file Sexual Orientation [...] 36.3 C (97.4 F) 07/14/2018 9:25 AM NAIL ARTIST Respiratory Rate - - Oxygen Saturation 98% 03/27/2021 1:31 PM CDT Inhaled Oxygen Concentration - - Weight 79.6 kg (175 lb 6.4 oz) 03/27/2021 1:31 P M CDT Height 159.9 cm (5' 2.95) 07/14/2018 9:25 AM CS T Body Mass Index 31.12 07/14/2018 9:25 AM NAIL ARTIST Plan of Treatment Health Maintenance Due Date [...] 2 SITES AXIAL Routine 07/31/2016 9:27 AM NAIL ARTIST Menopause from Last 3 Months or Most Recently Relevant to Health Maintenance Results * (ABNORMAL) XR DXA BONE DENSITY 2 SITES AXIAL (07/31/2016 9:27 AM NAIL ARTIST) Anatomical Region Laterality Modality Spine, HIPS, HIPL, HIPR Other Narrative 08/08/2016 4:43 PM NAIL ARTIST Please see scanned document for results of this study. us [place] OYSTER FISHERMAN DEXA F inal Result from Last 3 Months or Most Recently Relevant to Health Maintenance Insurance MEDICARE PART B HB ONLY [place] ONLY [place] BLUE MR PB ONLY Care Teams Brand Ambassador Relationship Specialty Start Date End Date Pcp, No . PCP - General 08/06/18 Mahamed Lanier [address] [place] [id number] Ui Software Developer 07/20/13 Malia Doll DC [address] [place] [id number] Chiropractor 08/04/17
--- OUTSIDE RECORDS SUMMARY | 2024-10-15 19:09 | XMS_ITS | Clinical Summary ---
Author Organization [facility] Address [address] [place] [address] Care Team Providers Care Spanish Translator Name Role Phone Unavailable Primary Care Provider Unavailabl e Source Comments You are receiving this document as you are listed as the primary care provider,follow-up provider, or the patient has been referred to you for consultation.This is in compliance with the Medicare and[facility] E[facility] Incentive Program,which states Providers who transition their patient to another setting of careor provider of care or refers their patient to another provider of care shouldprovide summary care record for each transition of care or referral. [facility] Allergies No known active allergies Medications ATENOLOL OR Active SIMVASTATIN OR Activ e LEVOTHYROXINE SODIUM OR Active aspirin 81 MG chewable tablet Take 81 mg by mouth daily. Active Active Problems No known active problems Social History Tobacco Use Types Packs/Day Years Used Date Smoking Tobacco: Never Smokeless Tobacco: Never Comments Unknown Sex and Gender Information Value Date Recorded Sex Assigned at Not on file Legal Sex Female 4:08 PM CDT Gender Identity Not on file Sexual Orientation Not on file Plan of Treatment Health Maintenance Due Date Last Done Comments Hep C Screening (Preventive Services) 1945 Medicare Annual Wellness Visit 1945 Zoster/Shingles (2 of 3) 11/16/2015 09/21/2015 RSV (1 - 1-dose 75+ series) 11/27/2022 COVID-19 Vaccine (3 - 2023- season) 2024 11/16/2020, 10/19/2020 Influenza (#1) 2024 05/29/2020, 10/0 08/2018, 06/28/2018, Additional history exists DTaP/Tdap/Td (3 - Tdap) 06/23/2030 06/23/20 20, 06/20/2008, 02/27/1997 HepA Aged Out 06/22/2009, 08/05/2002 No lo nger eligible based on patient's age to complete this topic Dexa Completed 07/31/2016 Pneumococcal 50+ Yrs Completed 08/04/2017, 07/30/20 16 HepB Aged [...] on patient's age to [place] [address] MEDICARE MANAGED CARE [facility] [place] [employer]
--- NOTE | 2024-10-15 19:15 | ED.GENADULT ---
HPI - General Adult General Chief complaint: Seizure Stated complaint: Seizures Time Seen by Provider: 10/15/24 19:12 History of Present Illness HPI narrative: This 78-year-old female comes in by ambulance because of a seizure that occurred. She called the ambulance stating that she did not feel right and wondered if she was going to have a seizure. She did have some involuntary I have movements but then ambulance personnel report that she did have a tonic clonic seizure that lasted for about a minute. An IV was placed and the patient did receive Versed 2.5 mg. She arrives here with normal vital signs and is postictal. She has a history of seizure disorder. She is taking Keppra according to her medication list. Her will be coming and should be able to provide more information. Related Data Home Medications ?Medication ?Instructions ?Recorded ?Confirmed aspirin 81 mg tablet,delayed 81 mg PO QDAY 04/03/22 09/29/24 release (Adult Aspirin Regimen) levetiracetam 500 mg tablet 1,750 mg PO BID 12/16/23 09/29/24 (Keppra) Previous Rx's ?Medication ?Instructions ?Recorded cholecalciferol (vitamin D3) 25 2,000 unit PO QDAY #60 caps 07/31/22 mcg (1,000 unit) capsule lorazepam 0.5 mg tablet 0.5 mg PO BID-TID anxiety #180 tabs 09/13/24 amlodipine 5 mg tablet 5 mg PO QDAY #90 tabs 09/29/24 atenolol 50 mg tablet 50 mg PO QDAY #90 tabs 09/29/24 levothyroxine 50 mcg tablet 50 mcg PO DAILY #90 tabs 09/29/24 simvastatin 20 mg tablet 20 mg PO QPM #90 tabs 09/29/24 Allergies Allergy/AdvReac Type Severity Reaction Status Date / Time sertraline Allergy Unknown sodium drop Verified 09/29/24 12:54 hydrochlorothiazide AdvReac Severe hyponatremi Verified 09/29/24 12:54 a Review of Systems Status of ROS: Reports: unobtainable due to mental status Narrative: Unable to obtain due to postictal state. [facility] Medical History (Updated 10/15/24 @ 20:44 by Kg Allen MD) Rash of groin ?R21 - Rash and other nonspecific skin eruption (ICD-10) Increased prolactin level (~2019) ?R79.89 - Other specified abnormal findings of blood chemistry (ICD-10) Anxiety ?F41.9 - Anxiety disorder, unspecified (ICD-10) Phobia, unspecified ?F40.9 - Phobic anxiety disorder, unspecified (ICD-10) History of panic attacks ?Z86.59 - Personal history of other mental and behavioral disorders (ICD-10) Vulvar disorder ?N90.9 - Noninflammatory disorder of vulva and perineum, unspecified (ICD-10) Vitamin D deficiency ?E55.9 - Vitamin D deficiency, unspecified (ICD-10) 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) ?E22.2 - Syndrome of inappropriate secretion of antidiuretic hormone (ICD-10) Seizure disorder (2019) ?G40.909 - Epilepsy, unspecified, not intractable, without status epilepticus (ICD-10) Postoperative hypothyroidism (2003) ?E89.0 - Postprocedural hypothyroidism (ICD-10) Peripheral neuropathy (2019) ?G62.9 - Polyneuropathy, unspecified (ICD-10) Panic attack ?F41.0 - Panic disorder [episodic paroxysmal anxiety] (ICD-10) Palpitations ?R00.2 - Palpitations (ICD-10) Microscopic hematuria ?R31.29 - Other microscopic hematuria (ICD-10) Major depressive disorder ?F32.9 - Major depressive disorder, single episode, unspecified (ICD-10) Generalized anxiety disorder with panic attacks ?F41.1 - Generalized anxiety disorder (ICD-10) ?F41.0 - Panic disorder [episodic paroxysmal anxiety] (ICD-10) Dyslipidemia ?E78.5 - Hyperlipidemia, unspecified (ICD-10) Benign paroxysmal positional vertigo (~12/2020) ?H81.10 - Benign paroxysmal vertigo, unspecified ear (ICD-10) Acute anxiety ?F41.9 - Anxiety disorder, unspecified (ICD-10) Surgical History (Updated 09/15/22 @ 13:01 by Joanne Mcrae MD) History of total thyroidectomy (2003) ?E89.0 - Postprocedural hypothyroidism (ICD-10) History of hysterectomy with bilateral oophorectomy (1988) ?Z90.710 - Acquired absence of both cervix and uterus (ICD-10) ?Z90.722 - Acquired absence of ovaries, bilateral (ICD-10) Family History (Updated 09/15/22 @ 13:03 by Joanne Mcrae MD) Mother Atrial fibrillation, Onset Age: 70 Stroke, Onset Age: 76 CLL (chronic lymphocytic leukemia) Sister Breast cancer, Onset Age: 54 Brother ALL (acute lymphoblastic leukemia) Father Myocardial infarction, Onset Age: 81 Other Osteoarthritis Social History (Updated 09/29/24 @ 13:28 by Joanne Mcrae MD) Narrative: , 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, 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, 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 exercises 7 days a week walks daily 30 min, chair yoga 2 / week non-smoker does not drink alcohol What is your current living situation?: I presently have a place to live Problems where you live: no known problems In the past 12 months, utilities in danger of being shut off: no In past 12 months, lack of transportation kept you from medical appts, meetings, work, or getting things needed for daily living: no In the past 12 mos, have been you worried that your food would run out before you had money to buy more?: never true In the past 12 mos, the food you bought just didn't last and you didn't have money to buy more?: never true Smoking Status: Never smoker Do you use any of these nicotine containing products: None Second hand tobacco smoke exposure: No How often do you have a drink containing alcohol: never AUDIT-C Alcohol total score: 0 Non-prescribed substance use: denies use How often does anyone, including family, friends and others, physically hurt you: never How often does anyone, including family, friends and others, insult or talk down to you: never How often does anyone, including family, friends and others, threaten you with harm: never How often does anyone, including family, friends and others, scream or curse at you: never Exam Narrative: Exam Narrative: Constitutional: Well-developed, well-nourished. Postictal. HEENT: Normocephalic, atraumatic. Neck: Normal range of motion. Nontender. Supple. Heart: Regular. No murmurs. Normal rate. Intact distal pulses. Lungs: Clear to auscultation. No chest discomfort. No wheezes, rhonchi, or rales. Abdomen: Normal bowel sounds. Nontender. No rebound tenderness. Genitalia: Deferred. Back: No midline tenderness. Normal range of motion. Extremities: Normal range of motion. No injury. Skin: Intact. No rash. Warm. No erythema or pallor. Nursing notes and vitals signs are reviewed. Const: Vital Signs, click to edit/add: Vital Signs - 24 hr 10/15/24 19:18 10/15/24 19:19 10/15/24 19:30 Temperature Pulse Rate 92 92 93 Pulse Rate [Pulse Oximeter] Respiratory Rate 21 13 Blood Pressure Blood Pressure [Ri ght Upper Arm] Pulse Oximetry 98 97 98 Oxygen Delivery Me thod 10/15/24 19:32 10/15/24 19:33 Temperature 98.1 F Pulse Rate 93 Pulse Rate [Pulse Oximeter] 87 Respiratory Rate 13 14 Blood Pressure 154/86 H Blood Pressure [Ri ght Upper Arm] 160/76 H Pulse Oximetry 96 98 Oxygen Delivery Me thod Room Air Course Vital Signs Vital signs: Initial Vital Signs Pulse Rate 92 10/15/24 19:18 Pulse Oximetry 98 10/15/24 19:18 Vital Signs Pulse Rate 92 10/15/24 19:18 Pulse Oximetry 98 10/15/24 19:18 Temperature 98.1 F 10/15/24 19:33 Pulse Rate 87 10/15/24 19:33 Respiratory Rate 14 10/15/24 19:33 Blood Pressure 160/76 H 10/15/24 19:33 Pulse Oximetry 98 10/15/24 19:33 Oxygen Delivery Method Room Air 10/15/24 19:33 Medical Decision Making MDM Narrative Medical decision making narrative: This patient comes in because of a seizure that occurred. She is postictal upon arrival but over time here returned back to normal function except for feeling tired. She did receive Versed 2.5 mg in route here. She states now that she is normally taking her Keppra at about this time at night and so she did receive 1500 mg of Keppra here. Her neurologist has her taking 1750 mg twice a day. She also states that she takes Ativan 0.5 mg twice daily. A Keppra level is drawn and results are pending. Other lab results are essentially reassuring. Her electrolytes are a bit off. She is okay to be discharged home with family. I advised her to follow-up with her primary physician. Lab Data Labs: Lab Results 10/15/24 Range/Units 19:13 WBC 13.37 H (4.50-11.00) K/uL RBC 5.19 (4.00-5.20) m/uL Hgb 14.7 (12.0-16.0) gm/dL Hct 44.7 (33.0-51.0) % MCV 86 (80-100) fL MCH 28 (26-34) pg MCHC 33 (32-36) gm/dL RDW Coeff of Consuelo 12.7 (11.5-15.5) % Plt Count 257 (140-440) K/uL Neut % (Auto) 46.1 (42.0-72.0) % Lymph % (Auto) 43.9 (20-44) % Ferry % (Auto) 7.7 (0.0-11.0) % Eos % (Auto) 1.8 (0.0-7.0) % Baso % (Auto) 0.4 (0.0-3.0) % Neut # (Auto) 6.20 (1.7-7.0) K/uL Lymph # (Auto) 5.90 H (0.90-2.90) K/uL Ferry # (Auto) 1.00 H (0.00-0.90) K/UL Eos # (Auto) 0.20 (0.00-0.50) K/uL Baso # (Auto) 0.10 (0.00-0.30) K/uL Abs Immat Gran (auto) 0.00 (0.00-0.30) K/uL Imm/Tot Granulo (auto) 0.1 % Sodium 133 L (135-149) mmol/L Potassium 3.7 (3.6-5.1) mmol/L Chloride 94 L (96-114) mmol/L Carbon Dioxide 13 L (20-32) mmol/L Anion Gap 26 H (7-15) mEq/L BUN 12 (7-30) mg/dL Creatinine 0.7 (0.5-1.5) mg/dL Estimated GFR 90 ml/min Glucose 119 H (60-115) mg/dL Calcium 8.8 (8.4-10.6) mg/dL ECG Data Attestation: I personally reviewed and interpreted this ECG as follows: Interpretation: Normal sinus rhythm. Rate is 93 beats per minute. There are no ST or T-wave abnormalities. Occasional PVCs. Discharge Plan Discharge Clinical Impression: Generalized tonic-clonic seizure Patient Disposition: Home w/ Parent or Adult Condition: Improved Additional Instructions: Continue current plans. Follow up with primary physician for medication review. Return if symptoms are recurrent. Prescriptions: No Action levetiracetam [Keppra] 500 mg tablet 1,750 mg PO BID levothyroxine 50 mcg tablet 50 mcg PO DAILY Qty: 90 3RF simvastatin 20 mg tablet 20 mg PO QPM Qty: 90 3RF amlodipine 5 mg tablet 5 mg PO QDAY Qty: 90 3RF atenolol 50 mg tablet 50 mg PO QDAY Qty: 90 3RF aspirin [Adult Aspirin Regimen] 81 mg tablet,delayed release (DR/EC) 81 mg PO QDAY cholecalciferol (vitamin D3) 25 mcg (1,000 unit) capsule 2,000 unit PO QDAY Qty: 60 0RF lorazepam 0.5 mg tablet 0.5 mg PO BID-TID Qty: 180 0RF Rx Instructions: 1 tablet twice for anxiety, may take one extra tablet if needed Follow Up/Referrals: Joanne Mcrae MD [Primary Care Provider] - Stand Alone Forms: [employer] Info Instructions
[2024-10-15 19:22] LABS: Basophils Percent Auto 0.4 % (0.0-3.0); Eosinophils Percent Auto 1.8 % (0.0-7.0); Hematocrit 44.7 % (33.0-51.0); Hemoglobin* 14.7 gm/dL (12.0-16.0); Immature Granulocytes Pct Auto 0.1 %; Lymphocytes Percent Auto 43.9 % (20-44); Mean Corpuscular HGB Conc 33 gm/dL (32-36); Mean Corpuscular Hemoglobin 28 pg (26-34); Mean Corpuscular Volume 86 fL (80-100); Monocytes Percent Auto 7.7 % (0.0-11.0); Neutrophils Percent Auto 46.1 % (42.0-72.0); Platelet Count* 257 K/uL (140-440); RDW Coefficient of Variation % 12.7 % (11.5-15.5); Red Blood Count 5.19 m/uL (4.00-5.20); White Blood Count* 13.37 K/uL (4.50-11.00)
[2024-10-15 19:23] LABS: Slide Review Reflex No
[2024-10-15 19:40] LABS: Chloride* 94 mmol/L (96-114)
[2024-10-15 19:41] LABS: Potassium* 3.7 mmol/L (3.6-5.1); Sodium* 133 mmol/L (135-149)
[2024-10-15 19:44] LABS: Anion Gap 26 mEq/L (7-15); Blood Urea Nitrogen* 12 mg/dL (7-30); Calcium* 8.8 mg/dL (8.4-10.6); Carbon Dioxide* 13 mmol/L (20-32); Creatinine* 0.7 mg/dL (0.5-1.5); Estimated Glomerular Filt Rate 90 ml/min; Glucose* 119 mg/dL (60-115)
--- OUTSIDE RECORDS SUMMARY | 2024-10-15 20:24 | XMS_ITS | Clinical Summary ---
Author Organization [facility] Address [address] [place] [address] Care Team Providers Care Sterilisation Technician Name Role Phone Unavailable Primary Care Provider Unavailabl e Source Comments You are receiving this document as you are listed as the primary care provider,follow-up provider, or the patient has been referred to you for consultation.This is in compliance with the Medicare and[facility] Incent[facility],which states Providers who [...] patient's age to [place] [address] [address] [facility] [employer]
--- OUTSIDE RECORDS SUMMARY | 2024-10-15 20:24 | XMS_ITS | Clinical Summary ---
Author Organization [facility] Address [address] [facility] [facility] , [address] [place] [address] Phone Care Team Providers Care Cardiac Cath Tech Name Role Phone MedRec, MedRec Unavailable Conditions or Problems Problem Name Problem Code Onset Date Status Entry Date Provider Comment Standard Description Annotate Drug monitoring 179723266 (SNOMED CT) Active Key Ritchie Medication monitoring Anxiety disorder 442839579 (SNOMED CT) Active Key Ritchie Anxiety disorder Peripheral neuropathy 883620272 (SNOMED CT) Active Thomas Haynes MD Peripheral nerve disease Seizure, nos R56.9 (ICD-10-CM) Active Thomas Haynes MD Unspecified convulsions Medications Medication Instructions Start Date Stop Date Generic Name NDC Provider ATIVAN 0.5 MG TABS 1 tab bid and 1/2 tab at noon per her psychiatrist 01/31 lorazepam [id number] Cesar Maguire MD ATIVAN 0.5 MG TABS 1 tab or 0.5 mg bid by pcp now lorazepam [id number] Cesar Maguire MD LEVETIRACETAM 500 MG TABS TAKE 3.5 TABLETS (1750 MG TOTAL) BY MOUTH TWICE DAILY (MUST BE AUROBINDO BRAND) levetiracetam [id number] Joyce Polo DNP,MEDIA THEORIST AND AUTHOR OF,HARDWARE INSTALLATION COORDINATOR LEVETIRACETAM 500 MG TABS TAKE 3 TABLETS BY MOUTH TWICE A DAY [MUST BE AUROBINDO BRAND] 11/29 levetiracetam [id number] Cesar Maguire MD LEVETIRACETAM 500 MG TABS TAKE 3 TABLETS (1500 MG TOTAL) BY MOUTH TWICE DAILY (MUST BE AUROBINDO BRAND) 12/07 levetiracetam 19582927602 Cesar Maguire MD MELATONIN 3 MG TABS tablet by mouth 10/12 melatonin 80442907152 Joyce Polo DNP,MEDIA THEORIST AND AUTHOR OF,HARDWARE INSTALLATION COORDINATOR ATENOLOL 50 MG TABS atenolol [id number] Joyce Polo DNP,MEDIA THEORIST AND AUTHOR OF,HARDWARE INSTALLATION COORDINATOR LEVETIRACETAM 500 MG TABS TAKE 3 TABLETS BY MOUTH TWICE A DAY [MUST BE AUROBINDO BRAND] 11/29 levetiracetam 27387443080 Ananya Napoles PA-C LEVETIRACETAM 500 MG TABS TAKE TWO TABLETS BY MOUTH TWICE A DAY 05/20 levetiracetam 74893569205 Cesar Maguire MD LEVETIRACETAM 500 MG TABS TAKE TWO TABLETS BY MOUTH TWICE A DAY [MUST BE AUROBINDO BRAND] 08 levetiracetam 91767676317 Cesar Maguire MD MELATONIN 3 MG TABS tablet by mouth 10/12 melatonin 94765488740 Cesar Maguire MD ATIVAN 0.5 MG TABS 1 tab bid and 1/2 tab at noon per her psychiatrist 01/31 lorazepam 60176289636 Cesar Maguire MD LEVOTHYROXINE SODIUM 13 MCG CAPS levothyroxine 54866142675 Cesar Kidd MD AMLODIPINE BESYLATE 2.5 MG TABS amlodipine 47368299069 Cesar Maguire MD SIMVASTATIN 20 MG TABS simvastatin 40539282125 Cesar Maguire MD aspirin 81 mg capsule aspirin Cesar Maguire MD VITAMIN D3 10 MCG (400 UNIT) CAPS cholecalciferol (vitamin d3) 93955792061 Cesar Maguire MD KEPPRA 500 MG TABS 2 tabs PO BID 05/27 levetiracetam 37506218380 Thomas Haynes MD LEVETIRACETAM 500 MG TABS TAKE TWO TABLETS BY MOUTH TWICE A DAY 05/20 levetiracetam 35539982365 Thomas Haynes MD KEPPRA 500 MG TABS 2 tabs PO BID 05/27 levetiracetam 38812397824 Rodney Wells PA-C KEPPRA 500 MG TABS 1 in AM and 2 in PM 09/18 levetiracetam 12397739300 Thomas Haynes MD KEPPRA 500 MG TABS 1.5 tabs in AM and 2 tabs in PM 12/02 levetiracetam [id number] Thomas Haynes MD KEPPRA 500 MG TABS 1 in AM and 2 in PM 09/18 levetiracetam 98161559109 Thomas Haynes MD MELATONIN 3 MG TABS 6/ MELATONIN 37858762521 Margarette Nj RN KEPPRA 500 MG TABS 1 in AM and 2 in PM 09/18 LEVETIRACETAM 13085982910 Thomas Haynes MD KEPPRA 500 MG TABS 1 po wam and 1.5 po qhs 1 LEVETIRACETAM 74856495870 Danyelle Bhagat Medications Administered No information available. [...] Date Detail Appointment 10:30 AM Joyce holbrookl DNP,MEDIA THEORIST AND AUTHOR OF,HARDWARE INSTALLATION COORDINATOR, [address], [address], [place], [address], Pending order Follow up Pending order Follow [...] ORDERS Levetiracetam (Keppra) 08/01 ORDERS Patient Instructions [facility]-[id number] Documentation of current medicatio ns ORDERS Follow up ORDERS Levetiracetam (Keppra) 12/27 ORDERS Levetiracetam (Keppra) 12/07 ORDERS Levetiracetam (Keppra) 10/12 ORDERS Instructions for Staff 10/12 ORDERS CBC with Diff/Platelet 01/30 ORDERS Levetiracetam (Keppra) 01/30 [id number] Documentation of current medicatio ns ORDERS Patient Instructions ORDERS EMG bilateral low ext 02/20 CPT-40622 Nerve Conduction 5-6 studies CPT-42631 EMG with NCS (5+ muscles) - 1 [...] Follow up ORDERS Telemedicine Follow up 06/20 CPT-98090 EEG EXTENDED 41-60mins (END) ORDERS EEG Routine ORDERS Patient Instructions Vital Signs Date Name Value Unit Description Heart Rate 77 /min pulse rate Immunizations No information available. Advance Directives No information available.
--- OUTSIDE RECORDS SUMMARY | 2024-10-15 20:24 | XMS_ITS | Clinical Summary ---
Author Organization [facility] Address [place], [place] [address] Care Team Providers Care Laborer Shipyard Name Role Phone Mahamed Lanier Unavailable [phone] LavonLevarleidy Bowden DC Unavailable [phone] Pcp, No Primary Care Provider Unavailabl [...] Cancer Brother 2 leukemia Heart Disease Father [place], 81yr Hyperlipidemia Father Hypertension Father Heart Disease [...] on file Legal Sex Female 6:10 AM NEON GLASS BENDER Gender Identity Not on file Sexual Orientation [...] 36.3 C (97.4 F) 07/14/2018 9:25 AM NEON GLASS BENDER Respiratory Rate - - Oxygen Saturation 98% 03/27/2021 1:31 PM CDT Inhaled Oxygen Concentration - - Weight 79.6 kg (175 lb 6.4 oz) 03/27/2021 1:31 P M CDT Height 159.9 cm (5' 2.95) 07/14/2018 9:25 AM CS T Body Mass Index 31.12 07/14/2018 9:25 AM NEON GLASS BENDER Plan of Treatment Health Maintenance Due Date [...] 2 SITES AXIAL Routine 07/31/2016 9:27 AM NEON GLASS BENDER Menopause from Last 3 Months or Most Recently Relevant to Health Maintenance Results * (ABNORMAL) XR DXA BONE DENSITY 2 SITES AXIAL (07/31/2016 9:27 AM NEON GLASS BENDER) Anatomical Region Laterality Modality Spine, HIPS, HIPL, HIPR Other Narrative 08/08/2016 4:43 PM NEON GLASS BENDER Please see scanned document for results of this study. us Lili River PRIOR AUTHORIZATION NURSE DEXA F inal Result from Last 3 Months or Most Recently Relevant to Health Maintenance Insurance MEDICARE PART B HB ONLY [employer] HB ONLY [place] BLUE MR PB ONLY Care Teams Laborer Shipyard Relationship Specialty Start Date End Date Pcp, No . PCP - General 08/06/18 Mahamed Lanier [address] [place] [id number] Licensed Aircraft Maintenance Engineer 07/20/13 Malia Doll DC [address] [place] [address] Chiropractor 08/04/17
[2024-10-15] MEDS: levETIRAcetam 500 MG TABLET 1500 MG PO (20:53)
[2024-10-19 01:55] LABS: Keppra (Levetiracetam) 39 ug/mL (10-40)
== END 2024-10-15 21:10 | disposition home or self-care (01) ==
PROVIDERS: Emergency Provider Emergency Medicine Emergency Medical Services; PCP Family Medicine
DX: G40.409 Other generalized epilepsy and epileptic syndromes, not intractable, without status epilepticus (principal)
CPT/HCPCS: 36415; 80048; 80177; 85025; 93005; 94761; 99284; A9270

== ENCOUNTER 2024-12-08 07:39 | Outpatient (CLI) | payer MEDICARE, BC, SELFPAY | END 2024-12-08 07:40 | disposition home or self-care (01) | LOC: NFLDREF 12-12 18:17 | PROVIDERS: PCP Family Medicine; Referring Provider Family Medicine; Visit Provider Family Medicine | DX: I10 Essential (primary) hypertension (principal); E89.0 Postprocedural hypothyroidism; E78.5 Hyperlipidemia, unspecified | CPT/HCPCS: 80053; 84439; 84443 ==

== ENCOUNTER 2025-01-25 09:53 | Emergency (ER) | payer MEDICARE, BC, SELFPAY ==
--- OUTSIDE RECORDS SUMMARY | 2024-12-27 10:24 | XMS_ITS ---
office note 6 mos. / rescheduled from 02/06 fax Created on: December 27, 2024 Shiela Villafana : 1945 Sex: Female Author Organization [facility] Address [address] [place] [address] Phone Care Team Providers Care Reinsurance Analyst Name Role Phone Christ ROSENBAUM APRN, CNP, Joyce Bowden Unavailable + Conditions or Problems No information available. Medications Medication Instructions Start Date Stop Date Generic Name [facility] Provider ATIVAN 0.5 MG TABS 3 lorazepam [id number] Joyce Polo DNP,JEFERSON DOBBINS LAMOTRIGINE 25 MG TABS TAKE 3 TABLETS BY MOUTH TWICE DAILY FOR 2 WEEKS, THEN INCREASE TO 4 TABLETS TWICE DAILY 0 lamotrigine 98174536744 Joyce Polo DNP,MU,JEFERSON Medications Administered No information available. Allergies, Adverse Reactions, Alerts Observed no known allergies at Results Date Name Value Unit Range Flag Description Office Visit: office note 6 mos. / rescheduled from 02/06 fax MEDS REVIEW Done Documenta tion of current medications (procedure) Plan of Care Type Date Detail Appointment 01:00 PM Joyce gallardo DNP,MU,JEFERSON, [address] [place] [address], [address], [address], Appointment 11:20 AM Cesar Maguire MD, [address] [place] [address], [address], [address], Pending order Follow up Pending order Follow up Pending order Follow up AMANDA Pending order Follow up AMANDA Pending order Patient Instruct ions Procedures Code Procedure Name Date Entry Date CPT-G2211 Complex e/m visit add on 202 01/01/29 Vital Signs No information available. Immunizations No information available. Advance Directives No information available.
--- OUTSIDE RECORDS SUMMARY | 2025-01-25 09:55 | XMS_ITS | Clinical Summary ---
Author Organization [facility] Address [address] [place] [address] Care Team Providers Care Museum Informatics Specialist Name Role Phone Mahamed Lanier Unavailable [phone] DollLevarleidy Bowden DC Unavailable [phone] Pcp, No Primary Care Provider Unavailabl [...] 06/15/2007 Other and unspecified hyperlipidemia 06/15/2007 Immunizations Immunization Administration Dates Next Due AMB Influenza, IIV3 [...] on file Legal Sex Female 6:10 AM CRACK OFF PERSON Gender Identity Not on file Sexual Orientation [...] 36.3 C (97.4 F) 07/14/2018 9:25 AM CRACK OFF PERSON Respiratory Rate - - Oxygen Saturation 98% 03/27/2021 1:31 PM CDT Inhaled Oxygen Concentration - - Weight 79.6 kg (175 lb 6.4 oz) 03/27/2021 1:31 P M CDT Height 159.9 cm (5' 2.95) 07/14/2018 9:25 AM CS T Body Mass Index 31.12 07/14/2018 9:25 AM CRACK OFF PERSON Plan of Treatment Health Maintenance Due Date Last Done Comments Hepatitis C screening for age 18-79 11/27/1965 Zoster (shingles) series for age 50+ (2 of 3) 11/16/2015 09/21/2015 Tetanus booster 06/20/2018 06/20/2008, 02/27/1997 Medicare Wellness for age 65+ 08/05/2018 08/04/2017, 07/30/2016, 07/25/2015, Additional history exists BMI (ht and wt on same day) for age 18+ 07/14/2019 07/14/2018, 08/04/2017, 06/05/2017, Additional history exists Depression screening for age 12+ 07/14/2019 07/14/2018, 08/04/2017, 08/04/2017, Additional history exists RSV vaccine for adults or (1 - 1-dose 75+ series) 11/27/2022 COVID-19 vaccine series ( season) 2024 11/16/2020, 10/19/2020 Influenza Vaccine (Season Ended) 2025 06/28/2018, 06/17/2017, 06/20/2016, Additional history exists Tdap Completed 06/20/2008 DEXA/DXA scan for age 65+ Completed 07/31/2016 Pneumococcal series for age 50+ Completed 08/04/2017, 07/30/2016 Hepatitis B series for 19+ Aged Out N o longer eligible based on patient's age to complete this topic Procedures Procedure Name Priority Date/Time Associated Diagnosis Comments XR DXA BONE DENSITY 2 SITES AXIAL Routine 07/31/2016 9:27 AM CRACK OFF PERSON Menopause from Last 3 Months or Most Recently Relevant to Health Maintenance Results * (ABNORMAL) XR DXA BONE DENSITY 2 SITES AXIAL (07/31/2016 9:27 AM CRACK OFF PERSON) Anatomical Region Laterality Modality Spine, HIPS, HIPL, HIPR Other Narrative 08/08/2016 4:43 PM CRACK OFF PERSON Please see scanned document for results of this study. us Lili River NP DEXA F inal Result from Last 3 Months or Most Recently Relevant to Health [place] [address] MEDICARE PART B HB ONLY [employer] [place] [place] BLUE HB ONLY [place] BLUE MR PB ONLY Care Teams Museum Informatics Specialist Relationship Specialty Start Date End Date Pcp, No . PCP - General 08/06/18 Mahamed Lanier [address] [place] [id number] Float Operator 07/20/13 Malia Doll DC [address] [place] [address] Chiropractor 08/04/17
--- OUTSIDE RECORDS SUMMARY | 2025-01-25 09:55 | XMS_ITS | Clinical Summary ---
Author Organization [facility] Address [address] [place] [address] Care Team Providers Care Cheese Wrapper Name Role Phone Unavailable Primary Care Provider Unavailabl e Source Comments You are receiving this document as you are listed as the primary care provider,follow-up provider, or the patient has been referred to you for consultation.This is in compliance with the Medicare and[facility] EHR Incentive Program,which states Providers who transition [...] 1945 Medicare Annual Wellness Visit 1945 Zoster/Shingles Vaccine (2 of 3) 11/16/2015 09/21/2015 RSV Vaccine (1 - 1-dose 75+ series) 11/27/2022 COVID-19 Vaccine ( - 2023- season) 2024 11/16/2020, 10/19/2020 Influenza Vaccine (Season Ended) 2025 05/29/2020, 05/31/2019, 06/28/2018, Additional history exists DTaP/Tdap/Td Vaccine (3 - Tdap) 06/23/2030 06/23/2020, 06/20/2008, 02/27/1997 HepA Vaccine Aged Out 06/22/2009, 08/05/2002 No lo nger eligible based on patient's age to complete this topic Dexa Completed 07/31/2016 Pneumococcal Vaccine 50+ Yrs Completed 08/04/2017, 07/30/2016 HepB Vaccine Aged Out No longer eligi ble based on patient's age to complete this topic Hib Vaccine Aged Out No longer eligi ble based on patient's age to complete this topic IPV (Polio) Vaccine Aged Out No longe r eligible based on patient's age to complete this topic MCV4 Vaccine Aged Out No longer eligi ble based on patient's age to complete this topic Meningococcal B Vaccine Aged Out No l onger eligible based on patient's age to complete this [place] [address] MEDICARE [facility]NA[facility] C[facility] [place] [address]
--- OUTSIDE RECORDS SUMMARY | 2025-01-25 09:55 | XMS_ITS | Clinical Summary ---
Author Organization [facility] Address [address] , [address] [place] [address] Phone Care Team Providers Care Director Of Workforce Development Name Role Phone [facility], [place] Unavailable Unava ilable Conditions or Problems Problem Name Problem Code Onset Date Status Entry Date Provider Comment Standard Description Annotate Drug monitoring [id number] (SNOMED CT) Active Key Ritchie Medication monitoring Anxiety disorder 277381973 (SNOMED CT) Active Key Ritchie Anxiety disorder Peripheral neuropathy 286066703 (SNOMED CT) Active Thomas Haynes MD Peripheral nerve disease Seizure, nos R56.9 (ICD-10-CM) Active Thomas Haynes MD Unspecified convulsions Medications Medication Instructions Start Date Stop Date Generic Name [facility] Provider ATIVAN 0.5 MG TABS lorazepam [id number] Joyce Polo DNP,OPERATIONS SYSTEMS SPECIALIST,FLEXO PRESS OPERATOR LAMOTRIGINE 25 MG TABS TAKE 3 TABLETS BY MOUTH TWICE DAILY FOR 2 WEEKS, THEN INCREASE TO 4 TABLETS TWICE DAILY lamotrigine 53514593098 Joyce Polo DNP,OPERATIONS SYSTEMS SPECIALIST,FLEXO PRESS OPERATOR LAMOTRIGINE 25 MG TABS TAKE 1 TABLET BY MOUTH EVERY DAY AT BEDTIME FOR 2 WEEKS; THEN INCREASE TO 1 TABLET TWICE DAILY FOR 2 WEEKS; THEN INCREASE TO 1 TAB IN AM AND 2 TABS IN PM FOR 2 WEEKS; THEN INCREASE TO 2 TABS TWICE DAILY 12/27 lamotrigine 22109954549 Joyce Polo DNP,OPERATIONS SYSTEMS SPECIALIST,FLEXO PRESS OPERATOR ATIVAN 0.5 MG TABS 1 tab bid and 1/2 tab at noon per her psychiatrist 01/31 lorazepam 34568566053 Cesar Maguire MD ATIVAN 0.5 MG TABS 1 tab or 0.5 mg bid by pcp now 12/27 lorazepam 33126310273 Cesar Maguire MD LEVETIRACETAM 500 MG TABS TAKE 3.5 TABLETS (1750 MG TOTAL) BY MOUTH TWICE DAILY (MUST BE AUROBINDO BRAND) levetiracetam 81247790253 Joyce Andersonigel DNP,OPERATIONS SYSTEMS SPECIALIST,FLEXO PRESS OPERATOR LEVETIRACETAM 500 MG TABS TAKE 3 TABLETS BY MOUTH TWICE A DAY [MUST BE AUROBINDO BRAND] 11/29 levetiracetam 98316064698 Cesar Maguire MD LEVETIRACETAM 500 MG TABS TAKE 3 TABLETS (1500 MG TOTAL) BY MOUTH TWICE DAILY (MUST BE AUROBINDO BRAND) 12/07 levetiracetam 06455378386 Cesar Maguire MD MELATONIN 3 MG TABS tablet by mouth 2 melatonin 76108001581 Joyce Bowden Rechlucinaigel DNP,OPERATIONS SYSTEMS SPECIALIST,FLEXO PRESS OPERATOR ATENOLOL 50 MG TABS atenolol 79922343861 Joyce Andersonigel DNP,OPERATIONS SYSTEMS SPECIALIST,FLEXO PRESS OPERATOR LEVETIRACETAM 500 MG TABS TAKE 3 TABLETS BY MOUTH TWICE A DAY [MUST BE AUROBINDO BRAND] 11/29 levetiracetam 28579361292 Ananya Napoles PA-C LEVETIRACETAM 500 MG TABS TAKE TWO TABLETS BY MOUTH TWICE A DAY 05/20 levetiracetam 00465380234 Cesar Maguire MD LEVETIRACETAM 500 MG TABS TAKE TWO TABLETS BY MOUTH TWICE A DAY [MUST BE AUROBINDO BRAND] 10/08 levetiracetam 25996589694 Cesar Maguire MD MELATONIN 3 MG TABS tablet by mouth 2 melatonin 31014779010 Cesar Maguire MD ATIVAN 0.5 MG TABS 1 tab bid and 1/2 tab at noon per her psychiatrist 01/31 lorazepam 17592854327 Cesar Maguire MD LEVOTHYROXINE SODIUM 13 MCG CAPS levothyroxine 33662845036 Cesar Kidd MD AMLODIPINE BESYLATE 2.5 MG TABS amlodipine 07289846118 Cesar Maguire MD SIMVASTATIN 20 MG TABS simvastatin 23434246705 Cesar Maguire MD aspirin 81 mg capsule aspirin Cesar Maguire MD VITAMIN D3 10 MCG (400 UNIT) CAPS cholecalciferol (vitamin d3) 32108684312 Cesar Maguire MD KEPPRA 500 MG TABS 2 tabs PO BID 05/27 levetiracetam 23105799089 Thomas Haynes MD LEVETIRACETAM 500 MG TABS TAKE TWO TABLETS BY MOUTH TWICE A DAY 05/20 levetiracetam 01440780273 Thomas Haynes MD KEPPRA 500 MG TABS 2 tabs PO BID 05/27 levetiracetam 39101665622 Rodney Wells PA-C KEPPRA 500 MG TABS 1 in AM and 2 in PM 09/18 levetiracetam 73236553689 Thomas Haynes MD KEPPRA 500 MG TABS 1.5 tabs in AM and 2 tabs in PM 12/02 levetiracetam 76953097894 Thomas Haynes MD KEPPRA 500 MG TABS 1 in AM and 2 in PM 09/18 levetiracetam 17451302889 hTomas Haynes MD MELATONIN 3 MG TABS 01/30 MELATONIN 54060867852 Margarette Nj RN KEPPRA 500 MG TABS 1 in AM and 2 in PM 09/18 LEVETIRACETAM [id number] Thomas Haynes MD KEPPRA 500 MG TABS 1 po wam and 1.5 po qhs 0 09/03 LEVETIRACETAM [id number] Danyelle Bhagat Medications Administered No information available. Allergies, Adverse Reactions, Alerts Observed no known allergies at Results Date Name Value Unit Range Flag Description Internal Other: Authorizatio n - OBS [email or web address] Yes Authoriza tion: Release of Information - Authorize [facility] - Payment and Healthcare Operations ROIAUTHOTHER Yes Authoriz ation: Release of Information - Authorize Others/Insurance - Payment and Healthcare Operations HIECONSENT Yes Consent To Release information to the Health Information Exchange (HIE) [email or web address] Yes Authorizat ion: Authorization for [facility] to leave messages, voicemail, send text messages, send emails AUTHRELHCARE Yes Authoriz ation: Release/Retrieval of Information to/from Healthcare Facilities, Pharmacy Benefit Payers and Providers [email or web address] Yes Authoriz ation: Notice of privacy practices AUTHBENEFIT Yes Authoriza tion: Assignment of Benefits and Payment Agreement Internal Other: Verbal Autho rization/Emergency Contact - OBS VERBAL_EMER Done Verbal au thorization and emergency contact Office Visit: office note 6 mos. / rescheduled from 02/06 fax MEDS REVIEW Done Documenta tion of current medications (procedure) Plan of Care Type Date Detail Appointment 01:00 PM Joyce gallardo DNP,OPERATIONS SYSTEMS SPECIALIST,FLEXO PRESS OPERATOR, [address] [place] [address] [address], [address], [place], [address], Appointment 11:20 AM Cesar Maguire MD, [address] [place] [address] [address], [address], [place], [address], Pending order Follow up Pending order Follow up Pending order Follow up AMANDA Pending order Follow up AMANDA Pending order Follow up Pending order Patient Instruct ions Pending order Patient Instruct ions Pending order Levetiracetam (K eppra) Pending order Levetiracetam (K eppra) Pending order Follow up with N eurologist [...] Name Date Entry Date ORDERS Follow up CPT-G2211 Complex e/m visit add on 202 01/01/29 ORDERS Patient Instructions ORDERS Levetiracetam (Keppra) 08/01 ORDERS Follow up with Neurologist or AMANDA [facility]-[id number] Documentation of current medicatio ns ORDERS Patient Instructions ORDERS Follow up ORDERS Levetiracetam (Keppra) 12/27 ORDERS Levetiracetam (Keppra) 12/07 ORDERS Levetiracetam (Keppra) 10/12 ORDERS Instructions for Staff 10/12 ORDERS CBC with Diff/Platelet 01/30 ORDERS Levetiracetam (Keppra) 01/30 [facility]-[id number] Documentation of current medicatio ns ORDERS Patient Instructions ORDERS EMG bilateral low ext 02/20 CPT-06350 Nerve Conduction 5-6 studies CPT-52310 EMG with NCS (5+ muscles) - 1 limb 03/18 ORDERS Telemedicine Follow up 09/25 ORDERS Folate (Folic Acid) Serum 20 20/02/08 ORDERS Hemoglobin A1C ORDERS Immunofixation Serum ORDERS Levetiracetam (Keppra) 02/05 ORDERS Sjogren's Ab - SSA/SSB (ANTI-Ro/ANTI-La) ORDERS Vitamin B1 (Thiamine) 02/05 ORDERS Vitamin B12 ORDERS Vitamin B6 (Pyridoxine) 2021 ORDERS t-Transglutaminase (tTG) IgA ORDERS Hepatitis C Ab (HCV) ORDERS Telemedicine Follow up 03/22 ORDERS Levetiracetam (Keppra) 09/25 ORDERS Telemedicine Follow up 07/03 ORDERS Basic Metabolic Panel (8) 20 20/07/23 ORDERS Levetiracetam (Keppra) 07/16 ORDERS Follow up ORDERS Telemedicine Follow up 06/20 CPT-76373 EEG EXTENDED 41-60mins (END) ORDERS EEG Routine ORDERS Patient Instructions Vital Signs Date Name Value Unit Description Heart Rate 77 /min pulse rate Immunizations No information available. Advance Directives No information available.
[2025-01-25 10:00] VITALS: BP 172/67; PULSE 64; RESP 16; TEMP 36.4; O2SAT 98; BMI 32.8
--- NOTE | 2025-01-25 10:25 | CRLHL7_ITS ---
For Patients: As a result of the Cures Act, medical imaging exams and procedure reports are released immediately into your electronic medical record. You may view this report before your referring provider. If you have questions, please contact your health care provider. INDICATION: Posttraumatic pain, not otherwise described. COMPARISON: None available. TECHNIQUE: Two views of the left hand. FINDINGS: Mineralization: Normal. Alignment: Normal. Bones and Joints: No fracture is identified. Mild osteoarthrosis of the 1st carpometacarpal joint is noted incidentally. Soft Tissues: Soft tissue swelling is seen overlying the dorsal aspect of the metacarpals on the lateral view. IMPRESSION: Soft tissue swelling described above. No fracture is identified. Dictated by Mahamed Purvis MD @ 01/25/2025 10:46:52 AM (Electronically Signed)
--- NOTE | 2025-01-25 10:27 | ED.GENADULT ---
HPI - General Adult General Chief complaint: Laceration/Wound Stated complaint: Left hand cut Time Seen by Provider: 01/25/25 10:06 History of Present Illness HPI narrative: 79-year-old female coming in today with a laceration on the dorsal surface of the left hand. Patient was trying to close the garage door and is not sure exactly how it happened but the door hit the top of the hand causing a laceration. She states that the hand is quite tender. Denies any other injury. Last tetanus shot was updated 5 years ago. Related Data Home Medications ?Medication ?Instructions ?Recorded ?Confirmed aspirin 81 mg tablet,delayed 81 mg PO QDAY 04/03/22 12/15/24 release (Adult Aspirin Regimen) levetiracetam 500 mg tablet 1,750 mg PO BID 12/16/23 12/15/24 (Keppra) lamotrigine 25 mg tablet 25 mg PO QAM 12/15/24 12/15/24 lamotrigine 25 mg tablet 50 mg PO QHS 12/15/24 12/15/24 Previous Rx's ?Medication ?Instructions ?Recorded cholecalciferol (vitamin D3) 25 2,000 unit PO QDAY #60 caps 07/31/22 mcg (1,000 unit) capsule amlodipine 5 mg tablet 5 mg PO QDAY #90 tabs 09/29/24 atenolol 50 mg tablet 50 mg PO QDAY #90 tabs 09/29/24 levothyroxine 50 mcg tablet 50 mcg PO DAILY #90 tabs 09/29/24 simvastatin 20 mg tablet 20 mg PO QPM #90 tabs 09/29/24 lorazepam 0.5 mg tablet 0.5 mg PO TID anxiety #270 tabs 12/15/24 Allergies Allergy/AdvReac Type Severity Reaction Status Date / Time sertraline Allergy Unknown sodium drop Verified 01/25/25 09:59 hydrochlorothiazide AdvReac Severe hyponatremi Verified 01/25/25 09:59 a SSRI AdvReac Severe hyponatremia Uncoded 12/15/24 13:33 profound Review of Systems Status of ROS: Reports: 6 or more systems reviewed and unremarkable except as noted in History and below [facility] Medical History Rash of groin ?R21 - Rash and other nonspecific skin eruption (ICD-10) Increased prolactin level (~2019) ?R79.89 - Other specified abnormal findings of blood chemistry (ICD-10) Anxiety ?F41.9 - Anxiety disorder, unspecified (ICD-10) Phobia, unspecified ?F40.9 - Phobic anxiety disorder, unspecified (ICD-10) History of panic attacks ?Z86.59 - Personal history of other mental and behavioral disorders (ICD-10) Vulvar disorder ?N90.9 - Noninflammatory disorder of vulva and perineum, unspecified (ICD-10) Vitamin D deficiency ?E55.9 - Vitamin D deficiency, unspecified (ICD-10) 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) ?E22.2 - Syndrome of inappropriate secretion of antidiuretic hormone (ICD-10) Seizure disorder (2019) ?G40.909 - Epilepsy, unspecified, not intractable, without status epilepticus (ICD-10) Postoperative hypothyroidism (2003) ?E89.0 - Postprocedural hypothyroidism (ICD-10) Peripheral neuropathy (2019) ?G62.9 - Polyneuropathy, unspecified (ICD-10) Panic attack ?F41.0 - Panic disorder [episodic paroxysmal anxiety] (ICD-10) Palpitations ?R00.2 - Palpitations (ICD-10) Microscopic hematuria ?R31.29 - Other microscopic hematuria (ICD-10) Major depressive disorder ?F32.9 - Major depressive disorder, single episode, unspecified (ICD-10) Generalized anxiety disorder with panic attacks ?F41.1 - Generalized anxiety disorder (ICD-10) ?F41.0 - Panic disorder [episodic paroxysmal anxiety] (ICD-10) Dyslipidemia ?E78.5 - Hyperlipidemia, unspecified (ICD-10) Benign paroxysmal positional vertigo (~12/2020) ?H81.10 - Benign paroxysmal vertigo, unspecified ear (ICD-10) Acute anxiety ?F41.9 - Anxiety disorder, unspecified (ICD-10) Surgical History History of total thyroidectomy (2003) ?E89.0 - Postprocedural hypothyroidism (ICD-10) History of hysterectomy with bilateral oophorectomy (1988) ?Z90.710 - Acquired absence of both cervix and uterus (ICD-10) ?Z90.722 - Acquired absence of ovaries, bilateral (ICD-10) Family History Mother Atrial fibrillation, Onset Age: 70 Stroke, Onset Age: 76 CLL (chronic lymphocytic leukemia) Sister Breast cancer, Onset Age: 54 Brother ALL (acute lymphoblastic leukemia) Father Myocardial infarction, Onset Age: 81 Other Osteoarthritis Social History Narrative: , 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, 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, 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 exercises 7 days a week walks daily 30 min, chair yoga 2 / week non-smoker does not drink alcohol What is your current living situation?: I presently have a place to live Problems where you live: no known problems In the past 12 months, utilities in danger of being shut off: no In past 12 months, lack of transportation kept you from medical appts, meetings, work, or getting things needed for daily living: no In the past 12 mos, have been you worried that your food would run out before you had money to buy more?: never true In the past 12 mos, the food you bought just didn't last and you didn't have money to buy more?: never true Smoking Status: Never smoker Do you use any of these nicotine containing products: None Second hand tobacco smoke exposure: No How often do you have a drink containing alcohol: never AUDIT-C Alcohol total score: 0 Non-prescribed substance use: denies use How often does anyone, including family, friends and others, physically hurt you: never How often does anyone, including family, friends and others, insult or talk down to you: never How often does anyone, including family, friends and others, threaten you with harm: never How often does anyone, including family, friends and others, scream or curse at you: never Exam Narrative: Exam Narrative: Well-nourished well-developed patient in no acute distress. Answers questions appropriately. Mood and affect are appropriate. Thoughts are goal oriented and rational. Patient speaks in full sentences without needing to catch her breath. HEENT: Normocephalic atraumatic. Delete the Conjunctivae are moist without any icterus noted. Moist mucous membranes. Extremities: On the dorsal surface of the left hand patient has a semi circular laceration that penetrates through the dermis but does not penetrate through the subcutaneous tissue or deeper structures. He she has full range of motion of all her fingers. She has a large hematoma on the dorsal surface of the hand with tenderness. Skin: Well perfused. Const: Vital Signs, click to edit/add: Vital Signs - 24 hr 01/25/25 10:00 Temperature 97.6 F Pulse Rate [Pulse Oximeter] 64 Respiratory Rate 16 Blood Pressure [Ri ght Upper Arm] 172/67 H Pulse Oximetry 98 Oxygen Delivery Me thod Room Air Course Course ED Course: Wound was cleaned in the usual sterile manner, wound explored and irrigated. Anesthetized with lidocaine. Six sutures with 4-0 Ethilon were placed without difficulty. We proceeded with an x-ray of the hand. X-ray, read by me, did not show any acute fractures. Vital Signs Vital signs: Initial Vital Signs Temperature 97.6 F 01/25/25 10:00 Temperature Source Temporal Artery Scan 01/25/25 10:00 Pulse Rate 64 01/25/25 10:00 Respiratory Rate 16 01/25/25 10:00 Blood Pressure 172/67 H 01/25/25 10:00 Blood Pressure Mean 102 01/25/25 10:00 Blood Pressure Position High-Fowlers 01/25/25 10:00 Pulse Oximetry 98 01/25/25 10:00 Oxygen Delivery Method Room Air 01/25/25 10:00 Vital Signs Temperature 97.6 F 01/25/25 10:00 Pulse Rate 64 01/25/25 10:00 Respiratory Rate 16 01/25/25 10:00 Blood Pressure 172/67 H 01/25/25 10:00 Pulse Oximetry 98 01/25/25 10:00 Oxygen Delivery Method Room Air 01/25/25 10:00 Temperature 97.6 F 01/25/25 10:00 Pulse Rate 64 01/25/25 10:00 Respiratory Rate 16 01/25/25 10:00 Blood Pressure 172/67 H 01/25/25 10:00 Pulse Oximetry 98 01/25/25 10:00 Oxygen Delivery Method Room Air 01/25/25 10:00 Medical Decision Making MDM Narrative Medical decision making narrative: Laceration, treated per above. Imaging Data X-ray hand: Attestation: I have reviewed the pertinent imaging results. Radiologist's impression: TECHNIQUE: Two views of the left hand. FINDINGS: Mineralization: Normal. Alignment: Normal. Bones and Joints: No fracture is identified. Mild osteoarthrosis of the 1st carpometacarpal joint is noted incidentally. Soft Tissues: Soft tissue swelling is seen overlying the dorsal aspect of the metacarpals on the lateral view. IMPRESSION: Soft tissue swelling described above. No fracture is identified. Discharge Plan Discharge Clinical Impression: Laceration Patient Disposition: Home, Self-Care Condition: Stable Additional Instructions: Keep wound clean and dry. Do not soak such as taking baths, swimming or doing dishes. Follow-up in approximately 1 week for suture removal with your primary care provider. Watch for signs and symptoms of infection including increasing redness of the area, purulent drainage, or fever. If this occurs follow-up right away with your doctor or return to the ER. Change dressings daily. Prescriptions: No Action levetiracetam [Keppra] 500 mg tablet 1,750 mg PO BID levothyroxine 50 mcg tablet 50 mcg PO DAILY Qty: 90 3RF simvastatin 20 mg tablet 20 mg PO QPM Qty: 90 3RF amlodipine 5 mg tablet 5 mg PO QDAY Qty: 90 3RF atenolol 50 mg tablet 50 mg PO QDAY Qty: 90 3RF lamotrigine 25 mg tablet 25 mg PO QAM lamotrigine 25 mg tablet 50 mg PO QHS lorazepam 0.5 mg tablet 0.5 mg PO TID Qty: 270 0RF Rx Instructions: 1 tablet TID for anxiety aspirin [Adult Aspirin Regimen] 81 mg tablet,delayed release (DR/EC) 81 mg PO QDAY cholecalciferol (vitamin D3) 25 mcg (1,000 unit) capsule 2,000 unit PO QDAY Qty: 60 0RF Follow Up/Referrals: Joanne Mcrae MD [Primary Care Provider, Family Practice] Stand Alone Forms: [facility] Info Instructions
[2025-01-25 11:00] VITALS: BP 151/82; PULSE 76; RESP 16; O2SAT 98
== END 2025-01-25 11:07 | disposition home or self-care (01) ==
PROVIDERS: Emergency Provider Family Medicine; PCP Family Medicine
DX: S61.412A Laceration without foreign body of left hand, initial encounter (principal); W20.8XXA Other cause of strike by thrown, projected or falling object, initial encounter
CPT/HCPCS: 12001; 73120; 99283; 99284

== ENCOUNTER 2025-02-16 07:29 | Outpatient (CLI) | payer MEDICARE, BC, SELFPAY ==
--- OUTSIDE RECORDS SUMMARY | 2025-02-17 00:43 | XMS_ITS | Clinical Summary ---
Author Organization [facility] Address [address] , [address] [place] [address] Phone Care Team Providers Care Women'S Garment Fitter Name Role Phone Hilda Peña LPN [phone] Conditions or Problems Problem Name Problem Code Onset Date Status Entry Date Provider Comment Standard Description Annotate Drug monitoring 685918295 (SNOMED CT) Active Key Ritchie Medication monitoring Anxiety disorder 198866846 (SNOMED CT) Active Key Ritchie Anxiety disorder Peripheral neuropathy 247069667 (SNOMED CT) Active Thomas Haynes MD Peripheral nerve disease Seizure, nos R56.9 (ICD-10-CM) Active Thomas Haynes MD Unspecified convulsions Medications Medication Instructions Start Date Stop Date Generic Name [facility] Provider LAMOTRIGINE 100 MG TABS Take 1 tablet by mouth twice a day lamotrigine [id number] Joyce Polo DNP,PIN MACHINE OPERATOR,POSTAL SERVICE CLERK ATIVAN 0.5 MG TABS lorazepam [id number] Joyce Polo DNP,PIN MACHINE OPERATOR,POSTAL SERVICE CLERK LAMOTRIGINE 25 MG TABS TAKE 3 TABLETS BY MOUTH TWICE DAILY FOR 2 WEEKS, THEN INCREASE TO 4 TABLETS TWICE DAILY 01/30 lamotrigine [id number] Joyce Polo DNP,PIN MACHINE OPERATOR,POSTAL SERVICE CLERK LAMOTRIGINE 25 MG TABS TAKE 1 TABLET BY MOUTH EVERY DAY AT BEDTIME FOR 2 WEEKS; THEN INCREASE TO 1 TABLET TWICE DAILY FOR 2 WEEKS; THEN INCREASE TO 1 TAB IN AM AND 2 TABS IN PM FOR 2 WEEKS; THEN INCREASE TO 2 TABS TWICE DAILY 12/27 lamotrigine [id number] Joyce Polo DNP,PIN MACHINE OPERATOR,POSTAL SERVICE CLERK ATIVAN 0.5 MG TABS 1 tab bid and 1/2 tab at noon per her psychiatrist 01/31 lorazepam [id number] Cesar Maguire MD ATIVAN 0.5 MG TABS 1 tab or 0.5 mg bid by pcp now 12/27 lorazepam [id number] Cesar Maguire MD LEVETIRACETAM 500 MG TABS TAKE 3.5 TABLETS (1750 MG TOTAL) BY MOUTH TWICE DAILY (MUST BE AUROBINDO BRAND) levetiracetam [id number] Joyce Polo DNP,PIN MACHINE OPERATOR,POSTAL SERVICE CLERK LEVETIRACETAM 500 MG TABS TAKE 3 TABLETS BY MOUTH TWICE A DAY [MUST BE AUROBINDO BRAND] 11/29 levetiracetam [id number] Cesar Maguire MD LEVETIRACETAM 500 MG TABS TAKE 3 TABLETS (1500 MG TOTAL) BY MOUTH TWICE DAILY (MUST BE AUROBINDO BRAND) 12/07 levetiracetam [id number] Cesar Maguire MD MELATONIN 3 MG TABS tablet by mouth /12 melatonin [id number] Joyce Polo DNP,PIN MACHINE OPERATOR,POSTAL SERVICE CLERK ATENOLOL 50 MG TABS atenolol [id number] Joyce Polo DNP,PIN MACHINE OPERATOR,POSTAL SERVICE CLERK LEVETIRACETAM 500 MG TABS TAKE 3 TABLETS BY MOUTH TWICE A DAY [MUST BE AUROBINDO BRAND] 4 levetiracetam [id number] Ananya Napoles PA-C LEVETIRACETAM 500 MG TABS TAKE TWO TABLETS BY MOUTH TWICE A DAY 05/20 levetiracetam [id number] Cesar Maguire MD LEVETIRACETAM 500 MG TABS TAKE TWO TABLETS BY MOUTH TWICE A DAY [MUST BE AUROBINDO BRAND] 10/08 levetiracetam [id number] Cesar Maguire MD MELATONIN 3 MG TABS tablet by mouth 10/12 melatonin [id number] Cesar Maguire MD ATIVAN 0.5 MG TABS 1 tab bid and 1/2 tab at noon per her psychiatrist 01/31 lorazepam [id number] Cesar Maguire MD LEVOTHYROXINE SODIUM 13 MCG CAPS levothyroxine 37491603917 Cesar Kidd MD AMLODIPINE BESYLATE 2.5 MG TABS amlodipine 94087861021 Cesar Maguire MD SIMVASTATIN 20 MG TABS simvastatin 99744682969 Cesar Maguire MD aspirin 81 mg capsule aspirin Cesar Maguire MD VITAMIN D3 10 MCG (400 UNIT) CAPS cholecalciferol (vitamin d3) [id number] Cesar Maguire MD KEPPRA 500 MG TABS 2 tabs PO BID 05/27 levetiracetam [id number] Thomas Haynes MD LEVETIRACETAM 500 MG TABS TAKE TWO TABLETS BY MOUTH TWICE A DAY 05/20 levetiracetam [id number] Thomas Haynes MD KEPPRA 500 MG TABS 2 tabs PO BID 05/27 levetiracetam 52553628329 Rodney Wells PA-C KEPPRA 500 MG TABS 1 in AM and 2 in PM 09/18 levetiracetam [id number] Thomas Haynes MD KEPPRA 500 MG TABS 1.5 tabs in AM and 2 tabs in PM 12/02 levetiracetam [id number] Thomas Haynes MD KEPPRA 500 MG TABS 1 in AM and 2 in PM 09/18 levetiracetam [id number] Thomas Haynes MD MELATONIN 3 MG TABS 01/30 MELATONIN [id number] Margarette Nj RN KEPPRA 500 MG TABS 1 in AM and 2 in PM 09/18 LEVETIRACETAM [id number] Thomas Haynes MD KEPPRA 500 MG TABS 1 po wam and 1.5 po qhs 0 09/03 LEVETIRACETAM [id number] Danyelle Bhagat Medications Administered No information available. [...] Date Detail Appointment 01:00 PM Joyce gallardo DNP,PIN MACHINE OPERATOR,POSTAL SERVICE CLERK, [facility] [address], [address], [place], [address], Appointment 11:20 AM Cesar Maguire MD, [address], [address], [place], [address], Pending order Follow up Pending order Follow up Pending order Follow up AMANDA Pending order Follow up AMANDA Pending order Follow up Pending order Lamotrigine (Bedoya ictal) Pending order Levetiracetam (K eppra) Pending order [...] up CPT-G2211 Complex e/m visit add on 01/01/29 ORDERS Patient Instructions ORDERS Levetiracetam (Keppra) 08/01 ORDERS Follow up with Neurologist or AMANDA [facility]-[id number] Documentation of current medicatio ns ORDERS Patient Instructions ORDERS Follow up ORDERS Levetiracetam (Keppra) 12/27 ORDERS Levetiracetam (Keppra) 12/07 ORDERS Levetiracetam (Keppra) 10/12 ORDERS Instructions for Staff 10/12 ORDERS CBC with Diff/Platelet 01/30 ORDERS Levetiracetam (Keppra) 01/30 [facility]-[id number] Documentation of current medicatio ns ORDERS Patient Instructions ORDERS EMG bilateral low ext 02/20 CPT-63775 Nerve Conduction 5-6 studies CPT-61700 EMG with NCS (5+ muscles) - 1 [...] Follow up ORDERS Telemedicine Follow up 06/20 CPT-62948 EEG EXTENDED 41-60mins (END) ORDERS EEG Routine ORDERS Patient Instructions Vital Signs Date Name Value Unit Description Heart Rate 77 /min pulse rate Immunizations No information available. Advance Directives No information available.
--- OUTSIDE RECORDS SUMMARY | 2025-02-17 00:49 | XMS_ITS | Clinical Summary ---
Author Organization [facility] Address [address] [place] [address] Care Team Providers Care Multiple Drum Sander Helper Name Role Phone Unavailable Primary Care Provider Unavailabl e Source Comments You are receiving this document as you are listed as the primary care provider,follow-up provider, or the patient has been referred to you for consultation.This is in compliance with the Medicare and[facility] EHR Incentive Program,which states Providers who [...] patient's age to complete this topic Insurance [place] [id number] MEDICARE MANAGED CARE [facility] [place] [address]
--- OUTSIDE RECORDS SUMMARY | 2025-02-17 00:49 | XMS_ITS | Clinical Summary ---
Author Organization [facility] Address [address] [place] [address] Care Team Providers Care Federal Java Developer Name Role Phone Mahamed Lanier Unavailable [phone] DollLevarleidy Bowden DC Unavailable [phone] Pcp, No Primary Care Provider Unavailabl [...] on file Legal Sex Female 6:10 AM MIXING MACHINE TENDER Gender Identity Not on file Sexual Orientation [...] 36.3 C (97.4 F) 07/14/2018 9:25 AM MIXING MACHINE TENDER Respiratory Rate - - Oxygen Saturation 98% 03/27/2021 1:31 PM CDT Inhaled Oxygen Concentration - - Weight 79.6 kg (175 lb 6.4 oz) 03/27/2021 1:31 P M CDT Height 159.9 cm (5' 2.95) 07/14/2018 9:25 AM CS T Body Mass Index 31.12 07/14/2018 9:25 AM MIXING MACHINE TENDER Plan of Treatment Health Maintenance Due Date [...] 2 SITES AXIAL Routine 07/31/2016 9:27 AM MIXING MACHINE TENDER Menopause from Last 3 Months or Most Recently Relevant to Health Maintenance Results * (ABNORMAL) XR DXA BONE DENSITY 2 SITES AXIAL (07/31/2016 9:27 AM MIXING MACHINE TENDER) Anatomical Region Laterality Modality Spine, HIPS, HIPL, HIPR Other Narrative 08/08/2016 4:43 PM MIXING MACHINE TENDER Please see scanned document for results of this study. us Lili River NP DEXA F inal Result from Last 3 Months or Most Recently Relevant to Health [place] [id number] MEDICARE PART B HB ONLY [place] BL[place] HB ONLY [place] BL[place] MR PB ONLY Care Teams Federal Java Developer Relationship Specialty Start Date End Date Pcp, No . PCP - General 08/06/18 Mahamed Lanier [address] [place] [address] Ceiling Insulation Blower 07/20/13 Malia Doll DC [address] [place] [address] Chiropractor 08/04/17
[2025-02-18 05:01] LABS: Keppra (Levetiracetam) 48 ug/mL (10-40); Lamotrigine 5.1 ug/mL (3.0-15.0)
== END 2025-02-16 07:30 | disposition home or self-care (01) ==
LOC: NPINS 07:29
PROVIDERS: PCP Family Medicine; Visit Provider Psychiatry & Neurology Neurology
DX: R56.9 Unspecified convulsions (principal); G60.9 Hereditary and idiopathic neuropathy, unspecified; F41.9 Anxiety disorder, unspecified; Z51.81 Encounter for therapeutic drug level monitoring
CPT/HCPCS: 80175; 80177

== ENCOUNTER 2025-03-13 07:40 | Outpatient (CLI) | payer MEDICARE, BC, SELFPAY | END 2025-03-13 07:41 | disposition home or self-care (01) | LOC: NFLDREF 03-14 15:16 | PROVIDERS: PCP Family Medicine; Referring Provider Family Medicine; Visit Provider Family Medicine | DX: E03.9 Hypothyroidism, unspecified (principal); I10 Essential (primary) hypertension | CPT/HCPCS: 80053; 84439; 84443 ==

== ENCOUNTER 2025-06-19 07:40 | Outpatient (CLI) | payer MEDICARE, BC, SELFPAY | END 2025-06-19 07:41 | disposition home or self-care (01) | LOC: NFLDREF 06-21 09:08 | PROVIDERS: PCP Family Medicine; Referring Provider Family Medicine; Visit Provider Family Medicine | DX: I10 Essential (primary) hypertension (principal); E55.9 Vitamin D deficiency, unspecified; E78.5 Hyperlipidemia, unspecified; M85.851 Other specified disorders of bone density and structure, right thigh; M85.852 Other specified disorders of bone density and structure, left thigh; R73.9 Hyperglycemia, unspecified | CPT/HCPCS: 80053; 84439; 84443 ==

== ENCOUNTER 2025-07-17 09:51 | Outpatient (CLI) | payer MEDICARE, BC, SELFPAY ==
--- NOTE | 2025-07-17 10:15 | CRLHL7_ITS ---
For Patients: As a result of the Century Cures Act, medical imaging exams and procedure reports are released immediately into your electronic medical record. You may view this report before your referring provider. If you have questions, please contact your health care provider. INDICATION: BILATERAL SCREENING MAMMOGRAM, ASYMPTOMATIC 79 Y/O FEMALE COMPARISON: 03/30/2024, 11/21/2022, 05/29/2021 TECHNIQUE: Digital mammogram in CC and MLO projections including computer-aided detection (CAD) and tomosynthesis. BREAST COMPOSITION: There are scattered areas of fibroglandular density. FINDINGS: No suspicious findings. ASSESSMENT: BI-RADS 1 Negative RECOMMENDATION: Annual screening mammogram. A lay language report of this examination will be provided to the patient. Dictated by: José Campbell MD @ 07/17/2025 11:03:57 (Electronically Signed)
== END 2025-07-17 09:52 | disposition home or self-care (01) ==
LOC: MAMMO 09:52
PROVIDERS: PCP Family Medicine; Visit Provider Family Medicine
DX: Z12.31 Encounter for screening mammogram for malignant neoplasm of breast (principal)
CPT/HCPCS: 77063; 77067